=== PATIENT | male | born 1985 | race Caucasian/White ===

== ENCOUNTER 2021-04-05 08:17 | Outpatient (REF) | payer OTHER, SELFPAY ==
[2021-04-05 11:04] LABS: Cholesterol 160 mg/dL; HDL Cholesterol 32 mg/dL; LDL Cholesterol Calculated 93 mg/dl; Triglycerides 179 mg/dL
== END 2021-04-05 08:18 | disposition home or self-care (01) ==
LOC: HO.MANLDS 08:17
PROVIDERS: PCP Physician Assistant; Visit Provider Physician Assistant
DX: Z00.00 Encounter for general adult medical examination without abnormal findings (principal)
CPT/HCPCS: 36415; 80061

== ENCOUNTER 2023-11-23 14:44 | Outpatient (REF) | payer OTHER, SELFPAY ==
[2023-11-23 17:28] LABS: MANUAL DIFF FLAG NO
[2023-11-23 17:39] LABS: Basophils Percent Auto 0.3 % (0-2); Eosinophils Absolute Auto 0.1 X10*3/uL (0.0-0.4); Eosinophils Percent Auto 0.9 % (0-4); Hematocrit 37.9 % (42.0-52.0); Hemoglobin 11.4 g/dl (14.0-18.0); Imm Gran Abs Auto 0.07 X10*3/uL (0.00-0.03); Imm Gran Pct Auto 0.5 % (0.0-0.4); Lymphocytes Absolute Auto 2.5 X10*3/uL (1.2-4.9); Lymphocytes Percent Auto 18.4 % (20-40); Mean Corpuscular HGB Conc 30.1 g/dl (31.0-36.0); Mean Platelet Volume 10.9 fL (9.4-12.4); Monocytes Percent Auto 7.2 % (2-11); Neutrophils Absolute Auto 9.8 x10*3/uL (2.0-8.3); Neutrophils Percent Auto 72.7 % (45-73); Platelet Count 409 X10*3/uL (160-400); Red Blood Count 5.19 X10*6/uL (4.60-5.80); Red Cell Distribution Width 17.1 % (11.0-16.0); White Blood Count 13.4 X10*3/uL (4.8-10.8)
[2023-11-23 17:52] LABS: Alanine Aminotransferase 24 U/L (0-40); Albumin Level 4.4 g/dL (3.5-5.0); Alkaline Phosphatase 112 U/L (39-117); Anion Gap 12 (12-20); Aspartate Amino Transferase 22 U/L (5-37); Bilirubin Total 0.3 mg/dL (0.0-1.0); Blood Urea Nitrogen 12 mg/dL (9-16); Calcium 9.6 mg/dL (8.4-10.2); Carbon Dioxide 26 mmol/L (22-29); Chloride 107 mmol/L (96-108); Estimated Glomerular Filt Rate > 60; Glucose Random 88 mg/dL (60-115); Potassium 3.9 mmol/L (3.3-5.1); Sodium 141 mmol/L (135-145)
[2023-11-24 05:22] LABS: Estimated Average Glucose 123 mg/dL; Hemoglobin A1c % 5.9 % (<6.0)
== END 2023-11-23 14:45 | disposition home or self-care (01) ==
LOC: HO.MANLDS 14:44
PROVIDERS: Visit Provider Physician Assistant
DX: R73.01 Impaired fasting glucose (principal)
CPT/HCPCS: 36415; 80053; 83036; 85025

== ENCOUNTER 2024-04-11 15:03 | Outpatient (REF) | payer OTHER, SELFPAY ==
[2024-04-11 17:35] LABS: Appearance Urine Clear; Color Urine Dark Yellow; Glucose Urine UA Negative (Negative); Leukocyte Esterase Urine Trace (Negative); Nitrite Urine Negative (Negative); PH 5.5 (5.0-9.0); Specific Gravity - Urine >= 1.030 (1.005-1.025); UMIC TRIGGER UACC YES; Urine Blood Moderate (2+) (Negative); Urine Ketones Trace mg/dL (Negative); Urine Protein 30 (1+) mg/dL (Neg-Trace)
[2024-04-11 18:34] LABS: Bacteria Urine None Seen (None Seen); Hyaline Casts Urine 0-2 /LPF (0-2); RBC Urine >20 /HPF (0-2); Squamous Epithelial Cell Urine 0-2 /HPF (0-2); WBC Urine 0-5 /HPF (0-5)
== END 2024-04-11 15:04 | disposition home or self-care (01) ==
LOC: HO.LAB 15:03
PROVIDERS: PCP Physician Assistant; Visit Provider Physician Assistant
DX: Z87.442 Personal history of urinary calculi (principal)
CPT/HCPCS: 81001

== ENCOUNTER 2024-04-26 09:48 | Outpatient (REF) | payer OTHER, SELFPAY ==
--- NOTE | ~2024-04-26 | XR_ITS ---
EXAMINATION: XR ABDOMEN KUB CLINICAL INDICATION: Renal stone follow-up COMPARISON: None available. TECHNIQUE: AP view of the abdomen. FINDINGS: Moderate amount of stool and gas overlies the kidneys and obscures detail. There may be 2 1-2 mm calcifications overlying the medial left kidney. Bowel gas pattern otherwise normal. Bony structures intact. XR/XR KUB IMPRESSION: Limited exam. Query tiny left nephroliths. Electronically signed by: Riki Graham MD 04/26/2024 12:05 PM EDT
== END 2024-04-26 09:49 | disposition home or self-care (01) ==
LOC: HO.XRAY 09:48
PROVIDERS: PCP Physician Assistant; Visit Provider Nurse Practitioner Family
DX: N13.30 Unspecified hydronephrosis (principal); N20.0 Calculus of kidney
CPT/HCPCS: 74018; 81003; 99202

== ENCOUNTER 2024-04-26 09:48 | Outpatient (AMB) | payer OTHER, SELFPAY ==
--- NOTE | 2024-04-26 10:00 | A.OFFVIS_ITS ---
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 Clarke. He has a past medical history of ulcerative colitis, depression, sleep apnea, Crohn's disease, hemorrhoids, migraines, anemia, acid reflux, and anxiety. He presents to the office today as a new patient for nephrolithiasis. In discussion with the patient today he reports having followed up with his PCP for ongoing right- sided flank pain that radiates to his abdomen at which time a CT of the abdomen was ordered and performed. These results reviewed with the patient today. Obstructing 6 mm proximal right ureteral calculus with moderate right hydronephrosis. Nonobstructing 4 mm left renal calculus. When asked he denies any previous history of nephrolithiasis and or surgical intervention for nephrolithiasis. In discussion with the patient today he continues to report right-sided flank pain and feels issues with urinary stream. He reports compliance with Flomax as prescribed and increase in hydration. In office urinalysis results reviewed with the patient today. Discussed obtaining stat KUB for further assessment evaluation. Discussed possible ureteroscopy verses ESWL however will await results of KUB for further assessment. Risks and benef its of these interventions were discussed. All questions were answered. He otherwise denies hematuria, dysuria, foul smelling urine, fever, and or chills. Stat KUB results reviewed 04/26 moderate amount of stool and gas overlying the kidneys and obscures detail. There may be to 1-2 mm calcifications overlying the medial left kidney. Call to patient to make him aware of results and discuss further plan of care. Will attempt to obtain CT KUB for further assessment evaluation given patient continues with right-sided flank pain and is unsure if he passed his kidney stone. [facility] Medical History (Updated 04/26/24 @ 10:25 by RAEANN Barillas) Kidney stone Depressive disorder Impaired fasting blood sugar Colitis Melanocytic nevus Muscle pain Sleep apnea Crohn's disease Adult attention deficit hyperactivity disorder Lyme disease Hemorrhoids Migraine Anemia Varicella Anxiety Acid reflux History of depression Ulcerative colitis Review of Systems Const All systems reviewed & are unremarkable except as noted in HPI and below Physical Exam Const General: cooperative, healthy appearing, comfortable, no acute distress, well developed, alert and awake Orientation/consciousness: patient oriented x3 Limitations: no limitations HEENT Head: Yes normal to inspection, Yes normocephalic and Yes atraumatic Ears: hearing grossly normal bilaterally Eyes General: appearance normal, both eyes and all related structures Neck Neck: Yes normal visual inspection and Yes trachea midline Chest Chest palpation & inspection: normal inspection of the chest Resp Effort & Inspection: normal respiratory effort and able to speak in complete sentences Cardio Rate: regular rate GI Inspection: Yes normal to inspection General: Yes no CVA tenderness Back/Spine/Pelvis Back: no CVA tenderness Skin General skin exam: no rashes or lesions noted Neuro General: patient oriented x3 Extrem General: Yes normal to inspection Psych Appearance: grossly normal and well kempt Mental Status: mental status grossly normal Speech and movement: Normal speech and movement present and Clear speech present Affect: normal affect Attitude: cooperative Thought process: Normal thought process present Thought content: Normal thought content present Insight: Fair insight present (Psych) Judgement: Fair judgement present (Psych) Results AMB Urinalysis, Automated UA Leukoctes 15 Araseli/uL Last Edit by Liam Matthews on 04/26/24 10:10 UA Nitrite Last Edit by Liam Matthews on 04/26/24 10:10 UA Urobilinogen 0.2 mg/dL Last Edit by Liam Matthews on 04/26/24 10:10 UA Protein 15 mg/dL Last Edit by Liam Matthews on 04/26/24 10:10 UA pH 8.0 Last Edit by Liam Snowchandrika on 04/26/24 10:10 UA Blood 0 Wilian/uL Last Edit by Liam Gwendolynchandrika on 04/26/24 10:10 UA Specific Aurora 1.010 Last Edit by Liam Gwendolynchandrika on 04/26/24 10:10 UA Ketone Negative Last Edit by Liam Gwendolynchandrika on 04/26/24 10:10 UA Bilirubin 0 mg/dL Last Edit by Elmersera Gwendolynchandrika on 04/26/24 10:10 UA Glucose 0 mg/dL Last Edit by Liam Gwendolynchandrika on 04/26/24 10:10 Results Reviewed Results Reviewed: Laboratory Last Values Urine pH (Auto) 8.0 04/26/24 10:09 Specific Aurora (Auto) 1.010 04/26/24 10:09 Urine Protein (Auto) 15 mg/dL 04/26/24 10:09 Glucose (UA)(Auto) 0 mg/dL 04/26/24 10:09 Urine Ketones (Auto) Negative 04/26/24 10:09 Urine Blood (Auto) 0 Wilian/uL 04/26/24 10:09 Urine Bilirubin (Auto) 0 mg/dL 04/26/24 10:09 Urine Urobilinogen (Auto) 0.2 mg/dL 04/26/24 10:09 Leukocyte Esterase (Auto) 15 Araseli/uL 04/26/24 10:09 Date of Service: 04/26/24 EXAMINATION: XR ABDOMEN KUB FINDINGS: Moderate amount of stool and gas overlies the kidneys and obscures detail. There may be 2 1-2 mm calcifications overlying the medial left kidney. Bowel gas pattern otherwise normal. Bony structures intact. IMPRESSION: Limited exam. Query tiny left nephroliths. Assessment & Plan Assessment & Plan (1) Hydronephrosis: Code(s): N13.30 - Unspecified hydronephrosis Category: Medical (2) Kidney stone: Code(s): N20.0 - Calculus of kidney Category: Medical Plan In office urinalysis results reviewed with the patient today; as noted above. Recent CT results reviewed with the patient today; as noted above. Discussed right-sided ureteroscopy verses right-sided ESWL; risks and benefits were discussed. All questions were answered. Discussed, educated, stressed the importance of adequate hydration in relation to nephrolithiasis as well as over all health and well being. Continue Flomax. Prescription provided for p.r.n. pain medication. Recent KUB results reviewed with the patient today; as noted above. Discussed obtaining CT KUB for further assessment evaluation. Follow-up in 2-4 days with imaging to be completed prior; or sooner with any issues, concerns, and or questions. Orders: Orders XR KUB Today N20.0 - Calculus of kidney AMB Urinalysis Automated Today Z13.9 - Encounter for screening, unspecified Medications: New tramadol 50 mg PO Q8H PRN 15 tabs 0RF pain Patient Instructions: The patient had an opportunity to ask questions regarding the treatment plan. All questions were answered. Physical exam, labs, and imaging were discussed and reviewed in detail. As well as risks, benefits, and discussion of treatment choices. No major barriers to understanding were identified. The patient expressed understanding and agreement with the above treatment plan. The patient was made aware they should contact our office by phone for worsening of their current condition, the appearance of new symptoms, or with any questions or concerns. Compliance is encouraged with any medications and follow up testing that is ordered. It is a privilege to be allowed the opportunity to participate in? your urological care.? Again, if you have any questions or concerns If you have any questions or concerns please do not hesitate to contact me. The office is [phone]. This note is constructed using voice recognition software. While every effort has been made to ensure accuracy outside collector errors may have been included. Yours sincerely, RAEANN Barillas Coding Level of Care Code New Pt Level 4 (70708) Diagnoses Hydronephrosis N13.30 Kidney stone N20.0
== END 2024-04-26 10:22 | disposition home or self-care (01) ==
PROVIDERS: PCP Physician Assistant; Visit Provider Nurse Practitioner Family
DX: N13.30 Unspecified hydronephrosis (principal); N20.0 Calculus of kidney; Z13.9 Encounter for screening, unspecified
CPT/HCPCS: 99204

== ENCOUNTER 2024-06-06 14:49 | Outpatient (REF) | payer OTHER, SELFPAY | END 2024-06-06 14:50 | disposition home or self-care (01) | LOC: HO.MANLDS 14:49 | PROVIDERS: Visit Provider Physician Assistant | DX: Z87.442 Personal history of urinary calculi (principal) | CPT/HCPCS: 87086 ==

== ENCOUNTER 2024-06-28 13:29 | Outpatient (REF) | payer OTHER, SELFPAY ==
[2024-06-30 03:54] LABS: Hepatitis B Surface Ab Qnt 19 mIU/mL (> OR = 10)
[2024-06-30 06:28] LABS: Mumps Virus IgG Antibody <9.00 AU/mL; Rubella IgG Antibody <0.90 Index; Varicella IgG Antibody 7.67 S/CO
[2024-07-01 03:59] LABS: TS Negative Control Passed; TS Panel A 0; TS Panel B 0; TS Positive Control Passed; TSpotTB Negative (Negative)
== END 2024-06-28 13:30 | disposition home or self-care (01) ==
LOC: HO.MANLNP 13:29
PROVIDERS: Internal Medicine; Visit Provider Physician Assistant
DX: Z23 Encounter for immunization (principal)
CPT/HCPCS: 36415; 86317; 86481; 86735; 86762; 86765; 86787

== ENCOUNTER 2024-07-06 13:01 | Outpatient (REF) | payer OTHER, SELFPAY ==
--- NOTE | ~2024-07-06 | CT_ITS ---
EXAMINATION: CT ABDOMEN AND PELVIS WITHOUT CONTRAST CLINICAL INFORMATION: Unspecified hydronephrosis COMPARISON: Abdominal radiograph 04/26/2024 TECHNIQUE: Multidetector volumetric imaging was performed from the superior aspect of the liver through the pubic symphysis. Sagittal and coronal reformatted images were obtained on the technologist's workstation. This CT examination was performed using dose optimization techniques as appropriate, variously including the following: *Automated exposure control *Adjustment of mA and/or kV according to patient size (this includes techniques or standardized protocols for targeted exams where dose is matched to indication/reason for exam; i.e. extremities or head) *Use of iterative reconstruction technique DLP: 579 mGy-cm FINDINGS: LUNG BASES: The visualized lung bases are unremarkable. LIVER, GALLBLADDER, AND BILIARY TREE: The liver is normal in size, shape, and attenuation. No focal hepatic lesion or biliary ductal dilatation is present. The gallbladder is unremarkable with no evidence of radiopaque gallstones, gallbladder wall thickening, or obvious pericholecystic inflammatory changes. PANCREAS: Unremarkable. SPLEEN: Unremarkable. ADRENAL GLANDS: Unremarkable. KIDNEYS AND URETERS: There is a 0.9 cm calculus in the proximal right ureter measuring up to 1300 Hounsfield units at the level of L4. There is associated proximal hydroureter and mild hydronephrosis. No additional right-sided nephrolithiasis. Nonobstructing left renal interpole to 0.3 cm calculus measuring up to 750 Hounsfield units. No left-sided hydronephrosis. The kidneys are normal in size, shape, and attenuation. No perinephric stranding. BLADDER: The bladder is distended without focal wall thickening. No bladder calculi. GASTROINTESTINAL TRACT: The stomach is distended with ingested material. The small and large bowel are nondilated. Normal appendix. ABDOMINAL WALL: No significant hernia is appreciated. LYMPH NODES: Normal. VASCULAR: Unremarkable. PELVIC VISCERA: Normal CT appearance the prostate and seminal vesicles. OSSEOUS STRUCTURES: Unremarkable. CT/CT kidney stone IMPRESSION: 1. There is a 0.9 cm calculus in the proximal right ureter with associated proximal hydroureter and mild hydronephrosis. 2. Nonobstructing left renal 0.3 cm calculus. Fleischner guidelines were followed. Electronically signed by: Christine Echavarria DO 07/07/2024 05:42 PM EST RP
== END 2024-07-06 13:02 | disposition home or self-care (01) ==
LOC: HO.CT 13:01
PROVIDERS: PCP Physician Assistant; Visit Provider Nurse Practitioner Family
DX: N13.30 Unspecified hydronephrosis (principal); N20.0 Calculus of kidney
CPT/HCPCS: 74176

== ENCOUNTER 2024-07-12 15:11 | Outpatient (AMB) | payer OTHER, SELFPAY ==
--- NOTE | 2024-07-12 15:11 | A.OFFVIS_ITS ---
Intake Visit Reasons: H&P Intake Note: New patient is present to establish care for history of kidney stone Any Urology Medications: None Antibiotic Allergy: Sulfa Blood Thinner: None Family History: Bladder Cancer? No Prostate Cancer? No Patient Symptoms: Patient states he is experiencing right lower back pain, discomfort, and difficult to urinate. He denies any blood in the urine. 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 Clarke. He has a past medical history of ulcerative colitis, depression, sleep apnea, Crohn's disease, hemorrhoids, migraines, anemia, acid reflux, and anxiety. He is being followed up on today via video telehealth for nephrolithiasis. Of note, patient was seen approximately 3 months ago at which time a CT KUB was ordered for further assessment evaluation. These results reviewed with the patient today. There is a 0.9 cm stone in the proximal right ureter. There is associated proximal hydroureter and mild hydronephrosis. No additional right-sided nephrolithiasis noted. Nonobstructing left renal inter pole 0.3 cm calculus.. No left-sided hydronephrosis. The bladder is distended without focal wall thickening. No bladder calculi noted. He continues to report ongoing right- sided flank pain worse at the end of his workday as well as in the morning. He otherwise denies any bothersome urinary issues. We discussed further treatment options to include ureteroscopy verses ESWL. Risks and benefits of these interventions were discussed. All questions were answered. He otherwise denies hematuria, dysuria, foul smelling urine, fever, and or chills. [facility] Medical History Kidney stone Depressive disorder Impaired fasting blood sugar Colitis Melanocytic nevus Muscle pain Sleep apnea Crohn's disease Adult attention deficit hyperactivity disorder Lyme disease Hemorrhoids Migraine Anemia Varicella Anxiety Acid reflux History of depression Ulcerative colitis Review of Systems Const All systems reviewed & are unremarkable except as noted in HPI and below Physical Exam Const General: cooperative, healthy appearing, comfortable, no acute distress, well developed, alert and awake Orientation/consciousness: patient oriented x3 Resp Effort & Inspection: normal respiratory effort and able to speak in complete sentences Neuro General: patient oriented x3 Psych Appearance: grossly normal and well kempt Mental Status: mental status grossly normal Speech and movement: Normal speech and movement present and Clear speech present Affect: normal affect Attitude: cooperative Thought process: Normal thought process present Thought content: Normal thought content present Insight: Fair insight present (Psych) Judgement: Fair judgement present (Psych) Telehealth Telehealth Telehealth Platform: Telephone Location of provider rendering services: practice address Location of patient: address on file Patient Identification confirmed using: Name, : Yes Telehealth method: video Patient verbally consented to treatment: Yes Patient verbally consented to billing insurance company: Yes Patient informed of any privacy concerns related to visit: Yes Minutes spent on Phone/Video with Pt.: 25 Results Reviewed Results Reviewed: Date of Service: 07/06/24 EXAMINATION: CT ABDOMEN AND PELVIS WITHOUT CONTRAST FINDINGS: LUNG BASES: The visualized lung bases are unremarkable. LIVER, GALLBLADDER, AND BILIARY TREE: The liver is normal in size, shape, and attenuation. No focal hepatic lesion or biliary ductal dilatation is present. The gallbladder is unremarkable with no evidence of radiopaque gallstones, gallbladder wall thickening, or obvious pericholecystic inflammatory changes. PANCREAS: Unremarkable. SPLEEN: Unremarkable. ADRENAL GLANDS: Unremarkable. GASTROINTESTINAL TRACT: The stomach is distended with ingested material. The small and large bowel are nondilated. Normal appendix. ABDOMINAL WALL: No significant hernia is appreciated. LYMPH NODES: Normal. VASCULAR: Unremarkable. PELVIC VISCERA: Normal CT appearance the prostate and seminal vesicles. OSSEOUS STRUCTURES: Unremarkable. IMPRESSION: 1. There is a 0.9 cm calculus in the proximal right ureter with associated proximal hydroureter and mild hydronephrosis. 2. Nonobstructing left renal 0.3 cm calculus. Assessment & Plan Assessment & Plan (1) Hydronephrosis: Code(s): N13.30 - Unspecified hydronephrosis Category: Medical (2) Kidney stone: Code(s): N20.0 - Calculus of kidney Category: Medical (3) Flank pain: Code(s): R10.9 - Unspecified abdominal pain Category: Medical Plan Recent CT KUB results reviewed with the patient today; as noted above. We discussed further surgical intervention to include ESWL versus ureteroscopy; risks and benefits of these interventions were discussed. All questions were answered. Prescription provided for p.r.n. pain medication. Will schedule for right sided ESWL as discussed. Follow-up per doctor's orders; or sooner with any issues, concerns, and or questions. Medications: New oxycodone 5 mg PO QID 7 days PRN 28 tabs 0RF pain Patient Instructions: The patient had an opportunity to ask questions regarding the treatment plan. All questions were answered. Physical exam, labs, and imaging were discussed and reviewed in detail. As well as risks, benefits, and discussion of treatment choices. No major barriers to understanding were identified. The patient expr essed understanding and agreement with the above treatment plan. The patient was made aware they should contact our office by phone for worsening of their current condition, the appearance of new symptoms, or with any questions or concerns. Compliance is encouraged with any medications and follow up testing that is ordered. It is a privilege to be allowed the opportunity to participate in? your urological care.? Again, if you have any questions or concerns If you have any questions or concerns please do not hesitate to contact me. The office is [phone]. This note is constructed using voice recognition software. While every effort has been made to ensure accuracy financial data analyst errors may have been included. Yours sincerely, RAEANN Barillas Coding Level of Care Code Tele Est Pt Level 4 (67008) Diagnoses Hydronephrosis N13.30 Kidney stone N20.0 Flank pain R10.9 Time Spent (min) 25
== END 2024-07-12 16:13 | disposition home or self-care (01) ==
LOC: HO.HUSH 15:11
PROVIDERS: PCP Physician Assistant; Visit Provider Nurse Practitioner Family
DX: N13.30 Unspecified hydronephrosis (principal); N20.0 Calculus of kidney; R10.9 Unspecified abdominal pain
CPT/HCPCS: 99214

== ENCOUNTER 2024-07-20 10:58 | Day surgery (SDC) | payer OTHER, SELFPAY ==
--- NOTE | 2024-07-18 13:43 | HO.ANESPROP2 ---
Documented by User: Steff Sorenson NP 07/18/24 13:43 HPI - Anesthesia Eval Consult details Narrative: 38yo M for Right ESWL PMFSH Active Problems Active Problems: All Active Problems Flank pain (Acute) Hydronephrosis (Acute) Kidney stone (Acute) Past Medical History Medical History Kidney stone Depressive disorder Impaired fasting blood sugar Colitis Melanocytic nevus Muscle pain Sleep apnea Crohn's disease Adult attention deficit hyperactivity disorder Lyme disease Hemorrhoids Migraine Anemia Varicella Anxiety Acid reflux History of depression Ulcerative colitis Social History Social History Advance Directives: No Advance Directives Information Provided: Yes Meds Allergies Allergy/AdvReac Type Severity Reaction Status Date / Time Sulfa (Sulfonamide Allergy Unknown Verified 07/20/24 11:36 Antibiotics) Home Medications ?Medication ?Instructions ?Recorded ?Confirmed ?Last Taken ?Type dextroamphetamine-amphetamine 5 mg 1 tab PO BID 04/25/24 04/26/24 Unknown History tablet lorazepam 1 mg tablet 1 mg PO BID 04/25/24 04/26/24 Unknown History sertraline 50 mg tablet 50 mg PO DAILY 04/25/24 04/26/24 Unknown History ustekinumab 90 mg/mL subcutaneous mg subcut 07/12/24 Unknown History syringe (Stelara) Assessment and Plan Assessment Anesthesia Assessment: Chart Reviewed Documented by User: Ivy Marsh MD 07/20/24 11:58 PMFSH Past Medical History Medical History Kidney stone Depressive disorder Impaired fasting blood sugar Colitis Melanocytic nevus Muscle pain Sleep apnea Crohn's disease Adult attention deficit hyperactivity disorder Lyme disease Hemorrhoids Migraine Anemia Varicella Anxiety Acid reflux History of depression Ulcerative colitis Surgical History History of Problems with Anesthesia: No Social History Social History Advance Directives: No Advance Directives Information Provided: Yes Meds Allergies Allergy/AdvReac Type Severity Reaction Status Date / Time Sulfa (Sulfonamide Allergy Unknown Verified 07/20/24 11:36 Antibiotics) Home Medications ?Medication ?Instructions ?Recorded ?Confirmed ?Last Taken ?Type dextroamphetamine-amphetamine 5 mg 1 tab PO BID 04/25/24 04/26/24 Unknown History tablet lorazepam 1 mg tablet 1 mg PO BID 04/25/24 04/26/24 Unknown History sertraline 50 mg tablet 50 mg PO DAILY 04/25/24 04/26/24 Unknown History ustekinumab 90 mg/mL subcutaneous mg subcut 07/12/24 Unknown History syringe (Stelara) Exam Airway Mallampati Class: III TM Dist: >3cm Neck ROM: Full Loose/Missing/Broken Teeth: No Heart: RRR Lungs: CTA Assessment and Plan Assessment Anesthesia Assessment: Anesthesia Plan Discussed Final Anesthetic Review History of Problems with Anesthesia: No NPO: Yes ASA Class: II Final Preanesthetic Review: Meds/Allgs Chart Reviewed, Consent Obtained/Reviewed and Anes Risks/Benef Reviewed Patient Risk: Low Procedure Risk: Low Anesthetic Plan Anesthetic Plan: MAC: Disposition: Standard PACU
--- NOTE | ~2024-07-20 | XR_ITS ---
EXAMINATION: XR ABDOMEN KUB CLINICAL INDICATION: Right renal stone. COMPARISON: CT kidney stone 07/06/2024, x-ray abdomen 04/26/2024. TECHNIQUE: 2 AP views of the abdomen. FINDINGS: Nonobstructive bowel gas pattern. Moderate amount of stool in the colon. Visualization of the bilateral kidneys is limited due to overlying bowel. Probable small left renal interpolar calculus redemonstrated, although visualization limited due to overlying bowel. No definitive right renal calculi identified, although visualization limited due to overlying bowel. Degenerative changes in the lumbar spine. Tiny faint pelvic calcifications, possibly phleboliths. XR/XR KUB IMPRESSION: Probable small left renal interpolar calculus redemonstrated, although visualization limited due to overlying bowel. No definitive right renal calculi identified, although visualization limited due to overlying bowel. This study was presented today July 20, 2024 for interpretation. Stat results provided at this time as requested by referring provider. Electronically signed by: Ramya Simons MD 07/20/2024 01:05 PM [facility]
--- NOTE | 2024-07-20 11:46 | MHC.SHP ---
Pre-Procedural Eval Section A - 24 Hr Update-Section A only Date of Service: 07/20/24 The patient is an INPATIENT: No Changes since office visit: No Cold of Flu in the past 2 weeks, No New Medical Problems, No Changes in Medication and No Patient answered all questions The patient has been examined within 24 hours of the surgical procedure. The History & Physical has been completed within 30 days and I have reviewed it.: Yes Section B - Complete if H&P > 30 days Chief Complaint: Hydronephrosis with ureteropelvic junction obstruc Allergies: Allergies Allergy/AdvReac Type Severity Reaction Status Date / Time Sulfa (Sulfonamide Allergy Unknown Verified 07/20/24 11:36 Antibiotics) Plan Diagnosis/Plan: Unchanged (Right proximal ureteric stone) I have reviewed the history and physical and performed a pertinent physical examination on my patient. No changes have occurred unless specified. Time Spent With Patient Time: Total time managing care of this patient today ____ minutes.
[2024-07-20 11:56] VITALS: BMI 34.3
[2024-07-20 11:58] VITALS: BP 132/88; PULSE 71; RESP 16; TEMP 36.9; O2SAT 99
[2024-07-20] MEDS: Lactated Ringers 1,000 ML 999 ML IV (12:07)
--- NOTE | 2024-07-20 12:44 | W.PM.OPN ---
Operative Note Operative Note Date of Service: 07/20/24 Narrative: PreOperative Diagnosis: right Ureteric stones Post Operative Diagnosis: right Ureteric stones Procedure: right Ureteric ESWL Surgeon: Dr Cameron Polanco Anesthesia: mac/sedation Indications for procedure: The patient understands ESWL may be a staged procedure and subsequent intervention may be required based on imaging after ESWL. Quoted stone clearance rates for a solitary procedure are in the 70-80% range based primarily on stone location. They also understand there is a risk of bleeding to the ureter, infection, damage to adjacent organs, and stone migration following the procedure. - Imaging 9mm right proximal Procedure: After informed consent was verified the patient was brought to the operating room and placed in a supine position. Anesthesia was performed per protocol. Safety pause time-out was performed. Imaging was displayed in the room and laterality confirmed. Stone location confirmed with in room imaging through use of ultrasound and fluroscopy as required. Procedure optimization performed with 1 Liter of hydration using LR prior to initiation. ESWL was performed. The 1st 500 shocks were performed at 60 hertz. These were performed with increasing power. Once maximum power was reached the rate was increased to 120 hertz. A total of 3000 shocks were given. Targeted imaging with ultrasound/fluoroscopy showed stone smudging suggestive of disintegration. The patient tolerated the procedure well and was transferred to the recovery area upon completion. Post procedure imaging will be organized. There was no evidence for flank discoloration.
[2024-07-20 12:47] VITALS: BP 125/83; PULSE 64; RESP 18; TEMP 36.5; O2SAT 97
[2024-07-20 12:55] VITALS: BP 128/75; PULSE 62; RESP 18; O2SAT 97
[2024-07-20 13:10] VITALS: BP 121/75; PULSE 65; RESP 18; O2SAT 99
[2024-07-20 13:25] VITALS: BP 138/48; PULSE 64; RESP 18; O2SAT 98
[2024-07-20 13:40] VITALS: BP 147/60; PULSE 61; RESP 18; O2SAT 98
== END 2024-07-20 13:59 | disposition home or self-care (01) ==
PROVIDERS: PCP Physician Assistant; Visit Provider Urology
PROC: (CPT 50590; principal; 2024-07-20 11:30)
DX: N20.1 Calculus of ureter (principal); N13.0 Hydronephrosis with ureteropelvic junction obstruction; M54.50 Low back pain, unspecified; R39.198 Other difficulties with micturition; K50.90 Crohn's disease, unspecified, without complications; K64.8 Other hemorrhoids; F32.A Depression, unspecified; F41.9 Anxiety disorder, unspecified; F90.8 Attention-deficit hyperactivity disorder, other type; G47.30 Sleep apnea, unspecified; D64.9 Anemia, unspecified; K21.9 Gastro-esophageal reflux disease without esophagitis; R73.01 Impaired fasting glucose; Z79.620 Long term (current) use of immunosuppressive biologic; Z79.899 Other long term (current) drug therapy; Z88.2 Allergy status to sulfonamides
CPT/HCPCS: 50590; 74018; J0131; J1940; J2003; J2250; J2704; J3010

== ENCOUNTER → 2024-07-20 10:58 | Outpatient (BNV) | payer OTHER, SELFPAY | PROVIDERS: PCP Physician Assistant; Visit Provider Urology | DX: N20.1 Calculus of ureter (principal) | CPT/HCPCS: 50590 ==

== ENCOUNTER 2024-08-22 09:20 | Outpatient (REF) | payer OTHER, SELFPAY ==
--- NOTE | ~2024-08-22 | US_ITS ---
EXAMINATION: US RETROPERITONEAL LIMITED (RENAL ONLY) CLINICAL INFORMATION: Calculus of kidneys.. COMPARISON: CT kidneys 07/06/2024 TECHNIQUE: Routine retroperitoneal ultrasound imaging with attention kidneys was performed. FINDINGS: RIGHT KIDNEY: 12.7 x 4.5 x 6.1 cm (SAG x AP x TRV). The kidney is normal in size, contour, and echogenicity. Renal cortical thickness is normal. No calculi or focal parenchymal lesions. There is mild pelvic fullness.. LEFT KIDNEY: 12.2 x 6.5 x 4.9 cm (SAG x AP x TRV). The kidney is normal in size, contour, and echogenicity. Renal cortical thickness is normal. No calculi or focal parenchymal lesions. No hydronephrosis. US/US renal BI IMPRESSION: No echogenic renal calculi seen. Mild right renal pelvic fullness.. Electronically signed by: Colby Bruno MD 08/22/2024 10:21 AM [facility] [place]
== END 2024-08-22 09:21 | disposition home or self-care (01) ==
LOC: HO.US 09:20
PROVIDERS: PCP Physician Assistant; Visit Provider Urology
DX: N20.0 Calculus of kidney (principal); N13.30 Unspecified hydronephrosis; R10.9 Unspecified abdominal pain
CPT/HCPCS: 76775

== ENCOUNTER → 2024-08-22 09:27 | Outpatient (BNV) | payer OTHER, SELFPAY | PROVIDERS: PCP Physician Assistant; Visit Provider Radiology Diagnostic Radiology | DX: N20.0 Calculus of kidney (principal) | CPT/HCPCS: 76775 ==

== ENCOUNTER 2024-08-31 14:59 | Outpatient (AMB) | payer OTHER, SELFPAY ==
--- NOTE | 2024-08-31 15:26 | A.OFFVIS_ITS ---
Intake Visit Reasons: ESWL- follow up/US(set) Intake Note: Patient Is present for Ultrasound follow up Urology Med: Tamsulosin Antibiotic Allergy: Sulfa Blood Thinner: None Medical Assistant Internal Medicine Required: No Accompanied by: Self / Same As Patient Allergies Sulfa (Sulfonamide Antibiotics) Allergy (Verified 08/31/24 16:03) Unknown Medication List - Last Reconciled 08/31/24 by RAEANN Barillas dextroamphetamine-amphetamine 5 mg 1 tab PO BID lorazepam 1 mg PO BID naproxen 500 mg PO BID PRN 7 days oxycodone 5 mg PO Q8H PRN 3 days oxycodone 5 mg PO QID PRN 7 days phenazopyridine (Pyridium) 100 mg PO TID PRN 4 days sertraline 50 mg PO DAILY tamsulosin 0.4 mg PO BEDTIME 14 days ustekinumab (Stelara) mg subcut HPI Comments Details: Slick is a very pleasant 38-year-old male patient of Dr. Clarke. He has a past medical history of ulcerative colitis, depression, sleep apnea, Crohn's disease, hemorrhoids, migraines, anemia, acid reflux, and anxiety. He presents to the office today for follow-up of his nephrolithiasis. Of note, patient underwent right-sided ESWL with Dr. Polanco 07/20/2024. Recent renal imaging results reviewed with the patient today 08/27 bilateral kidneys are normal in size, contour, and echogenicity. There are no calculi or lesions noted bilaterally. There is mild right renal pelvic fullness. In discussion with the patient today he reports initially after right-sided lithotripsy he had been doing well however over the last 7-10 days he has been experiencing right-sided flank pain as he had been prior to surgical procedure. In office urinalysis results reviewed with the patient today. We discussed obtaining repeat CT KUB for further assessment evaluation as patient continues to experience right-sided flank pain status post surgical procedure. He otherwise denies any bothersome urinary issues. He denies urinary urgency, urinary frequency, incontinence, nocturia, hematuria, dysuria, foul smelling urine, changes to urinary stream, fever, and or chills. He is happy with his current voiding parameters. [facility] Medical History Kidney stone Depressive disorder Impaired fasting blood sugar Colitis Melanocytic nevus Muscle pain Sleep apnea Crohn's disease Adult attention deficit hyperactivity disorder Lyme disease Hemorrhoids Migraine Anemia Varicella Anxiety Acid reflux History of depression Ulcerative colitis Social History Patient Tobacco Use Status: Current everyday Tobacco user Tobacco use type: Smokeless Tobacco Review of Systems Const All systems reviewed & are unremarkable except as noted in HPI and below Physical Exam Const General: cooperative, healthy appearing, comfortable, no acute distress, well developed, alert and awake Orientation/consciousness: patient oriented x3 Limitations: no limitations HEENT Head: Yes normal to inspection, Yes normocephalic and Yes atraumatic Ears: hearing grossly normal bilaterally Eyes General: appearance normal, both eyes and all related structures Neck Neck: Yes normal visual inspection and Yes trachea midline Chest Chest palpation & inspection: normal inspection of the chest Resp Effort & Inspection: normal respiratory effort and able to speak in complete sen tences Cardio Rate: regular rate GI Inspection: Yes normal to inspection General: Yes no CVA tenderness Back/Spine/Pelvis Back: no CVA tenderness Skin General skin exam: no rashes or lesions noted Neuro General: patient oriented x3 Extrem General: Yes normal to inspection Psych Appearance: grossly normal and well kempt Mental Status: mental status grossly normal Speech and movement: Normal speech and movement present and Clear speech present Affect: normal affect Attitude: cooperative Thought process: Normal thought process present Thought content: Normal thought content present Insight: Fair insight present (Psych) Judgement: Fair judgement present (Psych) Results AMB Urinalysis, Automated UA Leukoctes 0 Araseli/uL Last Edit by INDIA Booker on 08/31/24 15:47 UA Nitrite Negative Last Edit by INDIA Booker on 08/31/24 15:47 UA Urobilinogen 0.2 mg/dL Last Edit by INDIA Booker on 08/31/24 15:4 7 UA Protein 15 mg/dL Last Edit by INDIA Booker on 08/31/24 15:47 UA pH 6.5 Last Edit by INDIA Booker on 08/31/24 15:47 UA Blood 0 Wilian/uL Last Edit by INDIA Booker on 08/31/24 15:47 UA Specific Natalia 1.015 Last Edit by Abigail Russo, RMA on 08/31/24 15: 47 UA Ketone Negative Last Edit by Abigail Russo, RMA on 08/31/24 15:47 UA Bilirubin 0 mg/dL Last Edit by Abigail Russo, RMA on 08/31/24 15:47 UA Glucose 0 mg/dL Last Edit by Abigail Russo, A on 08/31/24 15:47 Results Reviewed Results Reviewed: Laboratory Last Values Urine pH (Auto) 6.5 08/31/24 15:46 Specific Natalia (Auto) 1.015 08/31/24 15:46 Urine Protein (Auto) 15 mg/dL 08/31/24 15:46 Glucose (UA)(Auto) 0 mg/dL 08/31/24 15:46 Urine Ketones (Auto) Negative 08/31/24 15:46 Urine Blood (Auto) 0 Wilian/uL 08/31/24 15:46 Urine Nitrite (Auto) Negative 08/31/24 15:46 Urine Bilirubin (Auto) 0 mg/dL 08/31/24 15:46 Urine Urobilinogen (Auto) 0.2 mg/dL 08/31/24 15:46 Leukocyte Esterase (Auto) 0 Araseli/uL 08/31/24 15:46 Ordering Physician: Cameron Polanco MD Date of Service: 08/22/24 Procedure(s): US renal BI Accession Number(s): [id number] cc: Cameron Polanco MD; Annette Clarke~ EXAMINATION: US RETROPERITONEAL LIMITED (RENAL ONLY) CLINICAL INFORMATION: Calculus of kidneys.. COMPARISON: CT kidneys 07/06/2024 TECHNIQUE: Routine retroperitoneal ultrasound imaging with attention kidneys was performed. FINDINGS: RIGHT KIDNEY: 12.7 x 4.5 x 6.1 cm (SAG x AP x TRV). The kidney is normal in size, contour, and echogenicity. Renal cortical thickness is normal. No calculi or focal parenchymal lesions. There is mild pelvic fullness.. LEFT KIDNEY: 12.2 x 6.5 x 4.9 cm (SAG x AP x TRV). The kidney is normal in size, contour, and echogenicity. Renal cortical thickness is normal. No calculi or focal parenchymal lesions. No hydronephrosis. IMPRESSION: No echogenic renal calculi seen. Mild right renal pelvic fullness.. Assessment & Plan Assessment & Plan (1) Flank pain: Code(s): R10.9 - Unspecified abdominal pain Category: Medical (2) Kidney stone: Code(s): N20.0 - Calculus of kidney Category: Medical Plan In office urinalysis results reviewed with the patient today; as noted above. Recent renal imaging results reviewed with the patient today; as noted above. We discussed obtaining repeat CT KUB for further assessment evaluation. We discussed importance of adequate hydration relation to nephrolithiasis as well as overall health and well-being. Continue Flomax. Patient with CT KUB appointment 09/09 Will follow-up once imaging is completed; or sooner with any issues, concerns, and or questions. Orders: Orders AMB Urinalysis Automated Today Z13.9 - Encounter for screening, unspecified Patient Instructions: The patient had an opportunity to ask questions regarding the treatment plan. All questions were answered. Physical exam, labs, and imaging were discussed and reviewed in detail. As well as risks, benefits, and discussion of treatment choices. No major barriers to understanding were identified. The patient expressed understanding and agreement with the above treatment plan. The patient was made aware they should contact our office by phone for worsening of their current condition, the appearance of new symptoms, or with any questions or concerns. Compliance is encouraged with any medications and follow up testing that is ordered. It is a privilege to be allowed the opportunity to participate in? your urological care.? Again, if you have any questions or concerns If you have any questions or concerns please do not hesitate to contact me. The office is [phone]. This note is constructed using voice recognition software. While every effort has been made to ensure accuracy computer game designer errors may have been included. Yours sincerely, RAEANN Barillas Coding Level of Care Code Est Pt Level 3 (18815) Diagnoses Flank pain R10.9 Kidney stone N20.0
--- OUTSIDE RECORDS SUMMARY | 2024-08-31 17:06 | XMS_ITS | Clinical Summary ---
Author Organization [facility] Address [address] [place] [address] Care Team Providers Care Director Of Retail Marketing Name Role Phone Roverto Chauhan MD Primary Care Provider [phone] Social History Tobacco Use Types Packs/Day Years Used Date Smoking Tobacco: Never Assessed Sex and Gender Information Value Date Recorded Sex Assigned at Not on file Legal Sex Male 11:18 PM EDT Gender Identity Not on file Sexual Orientation Not on file Plan of Treatment Health Maintenance Due Date Last Done Comments Hepatitis C Screening 1987 DTaP/Tdap/Td (1 - Tdap) 12/07/2005 Hep B (1 of 3 - 19+ 3-dose series) 12/07/2006 COVID-19 Vaccine (2023-2 5 season) 2024 Influenza (#1) 2024 Zoster (Shingrix) (1 of 2) 12/07/2037 HPV Vaccine Aged Out No longer eligi ble based on patient's age to complete this topic Hep A Aged Out No longer eligi ble based on patient's age to complete this topic Hib Aged Out No longer eligi ble based on patient's age to complete this topic Meningococcal ACWY Aged Out No longer eligible based on patient's age to complete this topic Pneumococcal Aged Out No longer eligi ble based on patient's age to complete this topic [facility] [place] [address] [employer] FEE FOR SERVICE PPO * Guarantor: [employer] Account Type Relation to Patient Date of Phone Billing Address [employer] [phone] [address] (Home) [phone] 24 (Work) [employer] ATTN: A/P [address] [address] [place] [address] Care Teams Director Of Retail Marketing Relationship Specialty Start Date End Date Roverto Chauhan MD [address] [place] [address] PCP - General 06/03/08
--- OUTSIDE RECORDS SUMMARY | 2024-08-31 17:06 | XMS_ITS | Data Portability ---
Author Organization [facility] Address [address] [place] [address] Assessment Encounter Date Assessment Date Assessment LastModified by Organization Details LastModified Time 04/08/2024 04/08/2024 Patient agreed and verbally consents to this audio and video Telehealth appt via a secure platform [email or web address] Not available 04/08/2024 10:23:33 04/29/2024 04/29/2024 Patient agreed and verbally consents to this audio and video Telehealth appt via a secure platform [email or web address] Not available 04/29/2024 11:23:49 Plan of Treatment Reminders Order Date Submit Date Provider Last Modified By Organization Details Last Modified Time Details Appointments ANNUAL EXAM 2024 03:30P M MARIAELENA HALL Not available Not available Not available Lab urinalysi s complete, reflex culture 2023 024 [facility], [address] [place] [address], [place], [address], 04/12/2024 11:18:54 Referral None recorded. Procedures None recorded. Surgeries None recorded. Imaging CT, abdomen + pelvis, w/o contrast - r/o kidney stone 2023 024 [email or web address] [address] [facility], [facility] [address], [place], [address], 04/11/2024 10:12:38 Medication Orders lorazepam 1 mg tablet 2023 024 [facility], [address] [place], [address], 04/05/2024 11:40:50 tamsulosi n 0.4 mg capsule 2023 024 [id number], [address] [facility], [place], [address], 04/08/2024 10:23:15 oxycodone 5 mg tablet 2023 024 [id number], [address] [facility], [place], [address], 04/08/2024 10:23:20 Patient TargetsNo targets recorded. Patient InstructionsNo instructions recorded. Reason for Referral None Reported. Results Created Date Observation Date Name Description Value Unit Range Abnormal Flag Note LastModifiedBy Organization Detail LastModifiedTime 04/11/20 24 04/11/2024 CT, abdom en + pelvi s, w/o contr ast No observ ation record ed. [facility] [address], [address], 04/11/2024 15:38:46 04/26/20 24 04/26/2024 XR, kidne y + urete r + bladd er No observ ation record ed. [facility] (Medical Records) [address] [place], [address], 04/26/2024 12:15:58 07/07/20 24 07/06/2024 CT, abdom en + pelvi s, w/o contr ast No observ ation record ed. [facility] (Medical Records) [address] [place], [address], 07/08/2024 09:07:14 08/22/19 25 08/22/2024 CT, abdom en + pelvi s, w/o contr ast No observ ation record ed. [email or web address] [facility] [address] [address], [place], [address], 08/22/2024 10:26:29 Result Notes None recorded. Problems Name Problem SNOMED Code Status Onset Date Resolution Date Notes Provider Name and Address Organization Details Recorded Time Ulcerative colitis 66093325 Active 2017 Not Available [facility] 3 09:54:27 History of depression 337872218 Active 2017 Not Available [facility] 3 09:54:27 Acid reflux 670414978 Active 2017 Not Available [facility] 3 09:54:27 Anxiety 91173103 Active 2017 Not Available [facility] 3 09:54:27 Varicella 35277935 Active 2017 Not Available [facility] 3 09:54:27 Anemia 876044763 Active 2017 2/2 UC Not Available [facility] 3 09:54:27 Migraine 07075007 Active 2017 Not Available [facility] 3 09:54:27 Hemorrhoid s 67495095 Active 2017 Not Available [facility] 3 09:54:27 Lyme disease 77614429 Active 2017 Not Available [facility] 3 09:54:27 Panic attack 743840597 Active 2021 Not Available [facility] 3 09:54:27 Adult attention deficit hyperactiv ity disorder 175468512 Active 2022 Not Available [facility] 3 09:54:27 Crohn's disease 90153852 Active 2022 Not Available [facility] 3 09:54:27 Sleep apnea 96328096 Active 2022 MARIAELENA HALL [address] [place] [address], [address], [facility] 3 13:51:36 Muscle pain 29085551 Active 2023 MARIAELENA HALL [address] [place], [address], [facility] 4 14:25:03 Melanocyti c nevus of skin 854698444 Active 2023 MARIAELENA HALL [address] [place] [address], [address], [facility] 4 14:29:10 Colitis 71829173 Active 2023 MARIAELENA HALL [address] [place] [address], [address], [facility] 4 14:31:39 External hemorrhoid s 63563983 Active 2023 MARIAELENA HALL [address] [place] [address], [address], [facility] 4 14:32:42 Impaired fasting glycemia 650421436 Active 2023 MARIAELENA HALL [address] [place] [address], [address], [facility] 4 14:35:57 Depressive disorder 54261206 Active 2023 MARIAELENA HALL [address] [place] [address], [address], [facility] 4 10:24:16 Kidney stone 18943707 Active 2023 MARIAELENA HALL [address] [place] [address], [phone], [facility] 4 15:39:37 Problem Notes None recorded. Procedures Surgical History Date Name Laterality Status Provider Name and Address Organization Details Recorded Time 9 Colonoscopy completed [facility] 09/10/2018 08:45:52 5 Colonoscopy completed [facility] 03/16/2018 16:35:24 Imaging Results Imaging Date Name Status LastModified by Organiz ation Details LastModified Time 04/11/2024 CT, abdomen + pelvis, w/o contrast completed [facility] [address] [address], [place], [address], 04/11/2024 15:38:46 04/26/2024 XR, kidney + ureter + bladder completed [facility] (Medical Records) [address] [place], [address], 04/26/2024 12:15:58 07/06/2024 CT, abdomen + pelvis, w/o contrast completed [facility] (Medical Records) [address] [place], [address], 07/08/2024 09:07:14 08/22/2024 CT, abdomen + pelvis, w/o contrast completed [facility] [address] [facility] [address], [place], [address], 08/22/2024 10:26:29 Procedure Notes None recorded. Medical Equipment None Reported. Allergies Allergen ID Allergen Name Allergen Category Reaction Reaction Severity Criticality Documentation Date Start Date Code Code System Note Provider Name and Address Organization Details Recorded Time 2152 Substance with sulfonami de structure and antibacte rial mechanism of action (substanc e) medicatio n rash Not available Not available 03/17/2018 54249 8003 SNOMED Betzy bo, [facility] 8 11:01:18 6307 Wellbutri n medicatio n other Not available Not available 08/19/2022 38996 RxNorm shake s, chill s, body aches MARIAELENA HALL [address] [place] [address], [phone], [facility] 3 09:17:51 Medications Name Sig Start Date Stop Date Status Note LastModified by Organization Details LastModified Time cyclobenzap rine 10 mg tablet Take 1 tablet 3 times a day by oral route for 15 days. 06/11 completed Not Available Not Available Not Available prednisone 10 mg tablet Taper instructi ons 11/22 completed Not Available Not Available Not Available cefuroxime axetil 250 mg tablet Take 1 tablet every 12 hours by oral route. 03/29 completed Not Available Not Available Not Available azithromyci n 250 mg tablet TAKE 2 TABLETS (500 MG) BY ORAL ROUTE ONCE DAILY FOR 1 DAY THEN 1 TABLET (250 MG) BY ORAL ROUTE ONCE DAILY FOR 4 DAYS 04/12 completed Not Available Not Available Not Available prednisone 20 mg tablet TAKE 2 TABLET BY MOUTH DAILY FOR 10 DAYS. START ON 05/09/22 AND CONTINUE UNTIL SEEN BY ZAIRA VIDALES ON 05/18) 08/19 completed Not Available Not Available Not Available prednisone 5 mg tablet TAKE 8 TABLETS ONCE DAILY FOR 14 DAYS THEN DECREASE BY 1 TAB EVERY 7 DAYS, THEN STOP 29 03/08 completed Not Available Not Available Not Available diphenoxyla te-atropine 2.5 mg-0.025 mg tablet TAKE 1 TABLET BY MOUTH FOUR TIMES A DAY NEEDED 07/18 completed Not Available Not Available Not Available Remicade 100 mg intravenous solution 06/03 completed Not Available Not Available Not Available tramadol 50 mg tablet TAKE 1 TABLET BY MOUTH EVERY 8 HOURS NEEDED FOR PAIN 05/02 completed Not Available Not Available Not Available vancomycin 125 mg capsule TAKE 1 CAPSULE BY MOUTH EVERY 6 HOURS FOR 5 DAYS 06/03 completed Not Available Not Available Not Available pantoprazol e 20 mg tablet,tone yed release TAKE 1 TABLET BY MOUTH EVERY DAY active Not Available Not Available No t Available hydrocortis one 2.5 % topical cream with perineal applicator APPLY A THIN LAYER TO THE AFFECTED AREA(S) BY TOPICAL ROUTE 2-4 TIMES DAILY active Not Available Not Available No t Available lorazepam 0.5 mg tablet TAKE 1 TABLET BY MOUTH TWICE A DAY NEEDED 05/09 completed Not Available Not Available Not Available tamsulosin 0.4 mg capsule TAKE 1 CAPSULE BY MOUTH EVERY DAY FOR 90 DAYS active Not Available Not Available No t Available lorazepam 2 mg tablet TAKE 1 TABLET BY MOUTH THREE TIMES A DAY DIRECTED FOR 14 DAYS 04/05 completed Not Available Not Available Not Available sertraline 25 mg tablet Take 1 tablet every day by oral route. 03/14 completed Not Available Not Available Not Available hydroxyzine HCl 25 mg tablet TAKE 1 TABLET BY MOUTH THREE TIMES A DAY NEEDED FOR 30 DAYS 07/18 completed Not Available Not Available Not Available lorazepam 1 mg tablet TAKE 1 TABLET BY MOUTH TWICE A DAY NEEDED active Not Available Not Available No t Available Vitamin D2 1,250 mcg (50,000 unit) capsule 03/29 completed Not Available Not Available Not Available sertraline 50 mg tablet TAKE 1 TABLET BY MOUTH EVERY DAY active Not Available Not Available No t Available dicyclomine 10 mg capsule TAKE 1-2 10 MG CAPSULE BY MOUTH 2 TIMES A DAY NEEDED 06/03 completed Not Available Not Available Not Available dextroamphe tamine-amph etamine 5 mg tablet TAKE 1 TABLET BY MOUTH TWICE A DAY active Not Available Not Available No t Available naproxen 500 mg tablet Take 1 tablet twice a day by oral route for 15 days. active Not Available Not Available No t Available amoxicillin 500 mg-potassiu m clavulanate 125 mg tablet TAKE 1 TABLET BY MOUTH EVERY 8 HOURS,X1 DAYS 06/03 completed Not Available Not Available Not Available simethicone 80 mg chewable tablet CHEW AND SWALLOW 1 TABLET 3 TIMES DAILY 08/19 completed Not Available Not Available Not Available oxycodone 5 mg tablet TAKE 1 TABLET BY MOUTH FOUR TIMES A DAY NEEDED FOR 10 DAYS active Not Available Not Available No t Available acetaminoph en prn active Not Available Not Available Not Available ibuprofen prn active Not Available Not Minnie ilable Not Available Remicade One infusion every 8 weeks 06/03 completed Not Available Not Available Not Available mesalamine ER 0.375 gram capsule,ext ended release 24 hr TAKE 4 CAPSULES BY MOUTH ONCE A DAY 08/19 completed Not Available Not Available Not Available Stelara 90 mg/mL subcutaneou s syringe 90 MG SC EVERY 8 WEEKS active Not Available Not Available No t Available Entyvio 300 mg intravenous solution will be every 8 weeks 11/22 completed Not Available Not Available Not Available Flucelvax Quad 1069-5697 (PF) 60 mcg (15 mcg x 4)/0.5 mL IM syringe 06/11 completed Not Available Not Available Not Available Fluarix Quad (PF) 60 mcg (15 mcg x 4)/0.5 mL IM syringe 04/02 completed Not Available Not Available Not Available Flucelvax Quad (PF) 60 mcg (15 mcg x 4)/0.5 mL IM syringe 04/02 completed Not Available Not Available Not Available Vitals Date Recorded Body height Body mass index (BMI) Body weight Heart rate Oxygen saturation Oxygen saturation in Arterial blood by Pulse oximetry Systolic blood pressure Diastolic blood pressure Provider Name and Address Organization Details Last Updated DateTime 4 168.91 cm 34.2 kg/m2 22731.7 2 g 79 /min 98 % 98 % 112 mm[Hg] 78 mm[Hg] Ora Drew [facility] 4 11:21:40 Date Recorded Body height Body mass index (BMI) Body weight Heart rate Oxygen saturation Oxygen saturation in Arterial blood by Pulse oximetry Systolic blood pressure Diastolic blood pressure Provider Name and Address Organization Details Last Updated DateTime 4 168.91 cm 33.5 kg/m2 98293.2 7 g 79 /min 99 % 99 % 118 mm[Hg] 82 mm[Hg] Ora Drew [facility] 4 11:20:32 Date Recorded Body height Body mass index (BMI) Body weight Heart rate Oxygen saturation Oxygen saturation in Arterial blood by Pulse oximetry Systolic blood pressure Diastolic blood pressure Provider Name and Address Organization Details Last Updated DateTime 4 168.91 cm 32.7 kg/m2 35047.5 9 g 73 /min 98 % 98 % 138 mm[Hg] 88 mm[Hg] Ora [facility] 4 13:27:36 Social History Question Answer Notes LastModified by Organizat ion Details LastModified Time Tobacco Smoking Status Current Every Day Smoker Ora Drew [facility] [place] [facility] 03/28/2024 11:19:40 Do You Or Have You Ever Used E-cigarettes Or Vape? Current User Of Electronic Cigarettes Information not available 11/23/2023 What Was The Date Of Your Most Recent Tobacco Screening? 06/17/2024 Information not available 06/17/2024 Do You Or Have You Ever Used Smokeless Tobacco? Never Used Smokeless Tobacco Information not available 11/23/2023 How Much Tobacco Do You Smoke? 0.5 PPD Information not available 03/28/2024 How Many Years Have You Smoked Tobacco? 9 [id number] Information not available 06/05/2020 Do You Or Have You Ever Used Any Other Forms Of Tobacco Or Nicotine? Yes Information not available 11/23/2023 Sex: Unknown Functional Status None recorded. Mental Status None recorded. Family History Relationship Description Onset Age of this Age Resolved Age Notes LastModified by Organization Details LastModified Time Mother Disorder of thyroid gland 55 [email or web address] Not available 2018 09:33:35 Medical History Condition Response Coronary Artery Disease N Other N Gout N Blood Diseases N Kidney Stones N Breast Cancer N Blood Transfusion N Lung Disease N Depression N COPD N Defects or Inherited Disease N Anxiety Disorder N Muscle, Joint, or Bone Problems N Obesity N Vision or Eye Problems N Arthritis N Infertility N Polyps N Mental Disorder N Cancer N Stroke N Varicosities N Endometriosis N Bladder or Kidney Problems N High Cholesterol N Liver Disease N Fibromyalgia N Headaches N Kidney Disease N Allergies/Hayfever N Heart Problems N Hospitalizations N Thyroid Problems N GI Problems Y Eating Disorder N Skin Problems N Anemia N MRSA exposure N Constipation N Mental Illness N Diabetes N Ovarian Cancer N Seizures/Epilepsy N Tuberculosis N Congestive Heart Failure (CHF) N Eczema N Abuse/Domestic Violence N Diverticulitis N Asthma N Reflux/GERD N Hepatitis N Heart Disease N Pulmonary Embolism N Hypertension N Chicken Pox N Autism Spectrum Disorder (ASD) N Osteoporosis N Immunizations Vaccine Type Date Status Note Provider Nam e and Address Organization Details Recorded Time COVID-19, mRNA, LNP-S, PF, 100 mcg/0.5mL dose or 50 mcg/0.25mL dose 1 completed Not Available [facility] 04/10/2023 15:04:48 COVID-19, mRNA, LNP-S, PF, 100 mcg/0.5mL dose or 50 mcg/0.25mL dose 1 completed Not Available [facility] 04/10/2023 15:04:48 Influenza, split virus, quadrivalent, preservative 2 completed Not Available [facility] 04/10/2023 15:04:48 COVID-19, mRNA, LNP-S, PF, 100 mcg/0.5mL dose or 50 mcg/0.25mL dose 2 completed Not Available [facility] 04/10/2023 15:04:48 COVID-19, mRNA, LNP-S, PF, 50 mcg/0.5 mL dose 1 completed Not Available [facility] 04/10/2023 15:04:48 COVID-19, mRNA, LNP-S, PF, 50 mcg/0.5 mL dose 2 completed Not Available [facility] 04/10/2023 15:04:48 Tdap 1 completed Not Available [facility] 04/10/2023 15:04:48 SARS-COV-2 (COVID-19) vaccine, UNSPECIFIED 3 completed Not Available [facility] 04/10/2023 15:04:48 influenza, unspecified formulation 3 completed Not Available [facility] 04/10/2023 15:04:48 Influenza, split virus, quadrivalent, preservative 9 completed Not Available [facility] 04/10/2023 15:04:48 Past Encounters Encounter ID Performer Location Encounter Start Date Encounter Closed Date Diagnosis/Indication Diagnosis SNOMED-CT Code Diagnosis ICD10 Code Diagnosis Note [id number] [facility] [address] [place] [address] 03/17/2018 10:50:16 03/17/2018 13:26:26 Adult health examination 042985833 Z00.01 Active or passive immunization 841618366 Z23 Strain of muscle of left shoulder 1620585246 1435787 S46.912A rest, heat, and stretching if fails will order PT Microscopic hematuria 19 8001986 R31.21 Body mass index 25-29 - overweight 575247359 Z68.28 discussed diet and healthy lifestyle [id number] Lilia Dunlap NP, [facility] [address] [place] [address] 06/11/2018 10:55:36 06/11/2018 12:52:57 Acute sinusitis 36029751 J01.90 Ulcerative colitis 69376 004 K51.90 [id number] [facility] [address] [place] [address] 03/29/2019 09:23:38 03/29/2019 10:05:16 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 early atypical pna Acute chest pain 0044690 01 R07.9 dxd as pericardit is clinically , no imaging support will check sed and crp ekg was negative as was cxr, will consider repeat cxr ? atypical pna Tick bite without infection 785245134 W57.XXXA Leukocytosis 175015254 D 72.829 present prior to prednisone will complete pred in 2 days will need to continue to monitor [id number] November LisbetLULASAMINA [facility] [address] [facility], [place] [address] 04/12/2019 15:39:45 04/12/2019 16:31:06 Hemoptysis 79808165 R04.2 Cough 25533144 R05 possible pna undetected by cxr? Fever 513851420 R50.9 ? early atypical pna C-reactive protein outside reference range 162899768 R79.82 Microscopic hematuria 19 7534806 R31.21 Leukocytosis 466844628 D 72.829 present prior to prednisone slightly elevated compared to ER labs, but he just finished pred on thursday [id number] MARIAELENA HALL [facility] [address] [place] [address], [place] [address] 04/02/2020 13:18:35 04/02/2020 14:31:10 Adult health examination 171877976 Z00.00 no concerns today doing well just had BW thru GI which looked good Active or passive immunization 880888842 Z23 will get the flu shot later sept will skip the TDAP [id number] MARIAELENA HALL [facility] [address] [place] [address],[place] [address] 04/03/2021 08:52:49 04/09/2021 09:52:44 Active or passive immunization 166190702 Z23 will get the flu shot later sept will skip the TDAP Adult heal th examination 364038397 Z00.00 no concerns today doing well Fatigue 84318528 R53.83 stable Attention deficit hyperactivity disorder, 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 will fu with referral for eval [id number] MARIAELENA HALL [facility] [address] [facility] [address] [address] 04/08/2022 09:05:12 04/08/2022 09:58:44 Anxiety 02896143 F41.1 will start on higher dose of sertraline 50 mg and will adding Panic attack 098348335 F 41.0 will fu in two week [id number] MARIAELENA HALL [facility] [address] [facility] [address] [address] 04/22/2022 09:52:02 04/22/2022 15:41:08 Anxiety 02831698 F41.1 stable History of depression 16 5926647 Z86.59 stable Ulcerative colitis 62309 004 K51.90 stable [id number] MARIAELENA HALL [facility] [address] [facility] [address] [address] 06/03/2022 10:27:48 06/03/2022 13:38:29 Adult health examination 942725246 Z00.00 no concerns today doing well Ulcerative colitis 33177 004 K51.90 improving [id number] MARIAELENA HALL [facility] [address] [place] [address],[place] [address] 08/19/2022 08:58:27 08/19/2022 09:44:49 Adult attention deficit hyperactivity disorder 627200201 F90.2 will restart the 5 mg and fu with patient [id number] MARIAELENA HALL [facility] [address] [facility] [address] [address] 06/09/2023 13:29:09 06/09/2023 16:03:30 Adult attention deficit hyperactivity disorder 899978484 F90.2 will restart the 5 mg and fu with patient Ulcerative colitis 56697 004 K51.90 improving Sleep apnea 10317535 G47 .33 doing really good with the CPAP [id number] MARIAELENA HALL [facility] [address] [facility] [address] [address] 11/23/2023 14:06:12 11/23/2023 16:44:24 History of depression 592220836 Z86.59 stable Crohn's disease 18642186 K50.00 stable Muscle pain 76902257 M79 .18 agreed to tramadol PRN for muscle as he comes off the prednisone Adult atte ntion deficit hyperactivity disorder 947854624 F90.2 will restart the 5 mg and fu with patient Melanocyti c nevus of skin 148938769 D22.5 agreed to derm referral Colitis 97738321 K51.90 stable currently External hemorrhoids 239 88898 K64.4 will try higher dosed steriod Impaired f asting glycemia 833770968 R73.01 agreed to check his sugar levels given long-term use of steriods Long-term current use of immunosuppressive drug 548767484 Z79.60 will set up with bone density due to long-term use of prednisone over 2 years [id number] MARIAELENA HALL [facility] [address] [facility], [place] [address] 03/08/2024 13:38:12 03/08/2024 14:56:02 Panic attack 718604779 F41.0 will start on adjusted dose of the ativan and start on hydroxyzin e as well for the severe panic he is experienci ng Anxiety 76280113 F41.1 fu next week [id number] MARIAELENA HALL [facility] [address] [facility], [employer] [place] [address] 03/14/2024 10:03:13 03/14/2024 11:20:12 Depression screening 820879829 Z13.31 continue plan as prescribed Depressive disorder 3548 9007 F32.1 doing bettercont inue current medication regimine [id number] MARIAELENA HALL [facility] [address] [facility], [place] [address] 03/28/2024 11:04:23 03/28/2024 11:55:43 Crohn's disease 85832407 K50.00 stable Depressive disorder 3548 9007 F32.1 doing bettercont inue current medication regimine Panic attack 606027850 F 41.0 will start on adjusted dose of the ativan and start on hydroxyzin e as well for the severe panic he is experienci ng Anxiety 48227296 F41.1 fu next week [id number] MARIAELENA HALL [facility] [address] [facility] [address] [address] 04/05/2024 10:54:58 04/05/2024 12:17:29 Panic attack 130821487 F41.0 improving Anxiety 42051650 F41.1 needs refill Depressive disorder 3548 9007 F32.1 more tempered mood, much more stable [id number] [facility] [address] [address] 04/08/2024 09:21:10 04/08/2024 13:56:13 History of calculus of kidney [id number] Z87.442 will set up with STAT CT [id number] MARIAELENA HALL [facility] [address] [address] 04/29/2024 09:08:15 04/29/2024 11:30:20 Adult attention deficit hyperactivity disorder [id number] F90.2 stable Anxiety 86770920 F41.1 stable Crohn's disease [id number] K50.00 stable Kidney stone [id number] N2 0.[address] order from urology [id number] MARIAELENA HALL [facility] [address] [facility] [address] [address] 06/17/2024 13:23:18 06/17/2024 13:56:50 Active or passive immunization [id number] Z23 will get the flu shot later sept will skip the TDAP Adult heal th examination [id number] Z00.00 no concerns today doing well Health Concerns Section Related Observation LastModified by Organization Detai ls LastModified Time None Recorded Concern Status LastModified by Organization Details LastModified Time None Recorded Advance Directives Directive None Recorded Payers Encounter Date Sequence Insurance Name Policy Number Policy Scott Covered Member ID Scott Member ID Guarantor Name 03/28/2024 1 [facility] ([facility]) [id number] Slick Zapata [id number] Slick H Benny 04/05/2024 1 [facility] (O) [id number] Slick H Benny [id number] Slick H Benny 04/08/2024 1 [facility] (O) [id number] Slick H Benny [id number] Slick H Benny 04/29/2024 1 [facility] (O) [id number] Slick H Benny [id number] Slick H Benny 06/17/2024 1 [facility] (O) [id number] Slick H Benny [id number] Slick H Benny Notes Date Note Type Note Provider Name a mn Address Organization Details Recorded Time 4 text/html 2 week f/u the patient reports that he did have an episode of anxiety prior to his couples therapy apptbut after that he has actually felt pretty goodthinking about getting a new couples therapist, doesn't feel the one he has been helpful medications have been really goodwill be helping him come down to his regular dose of ativan can continue other medications as prescribed continue on 25 mg of sertraline will also try dosing down the hydroxyzine later onwill fu next week before I leave on vacation MARIAELENA HALL [address] [facility], [place], [address], [facility] 03/28/2024 11:55:05 4 text/html 1 week f/u the patient is doing okaydid okay this weekenddid have some passive thoughts of nothing being alive on Sat, no plans, stopped having those thoughts around late morning and was fine since agreed to sertraline increase, will take the full 50 mg tabletcan continue hydroxyzine continue the ativan as needed discussed some coping mechanisms and how to talk to her MARIAELENA HALL [address] [facility], [place], [address], [facility] 04/05/2024 11:44:24 4 text/html c/o kidney stone The patient is participating in this appointment via telemedicine communication with a phone call/video calling service (Doxy)The patient consents to use of these platforms in place of an in-person appointment due to either sick symptoms the patient is presenting with or current office closure due to COVID exposure in order to keep our office staff and patients safe the patient has blood in his urine and left flank pain, mod to severeno fever, no chillsno pain with urination, just dark red urine most likely a kidney stonerecommended VIRGINIE CT with urine samplestart on tamsulosin and oxycodonegiven instructions for fluid intake MARIAELENA HALL [address] [place], [address], [facility] 04/08/2024 10:27:31 4 text/html 3 week f/u The patient is participating in this appointment via telemedicine communication with a phone call/video calling service (Casandra)The patient consents to use of these platforms in place of an in-person appointment due to either sick symptoms the patient is presenting with or current office closure due to COVID exposure in order to keep our office staff and patients safe saw urology, got XR was obscured on right side, had him do UA, no blood in the urineordered him a CT again to check where the stone is, if it's still obstructing his ureter the patient has a weaker stream, doesn't feel like him empties his bladder fullypain has improvedno more blood in the urine mental healthwise he is doing goodworking with his new therapist and his meds are working well for the patient MARIAELENA HALL [address] [place], [address], [facility] 04/29/2024 11:24:02 4 text/html Annual WellnessReported bypatient.Diet and Nutrition:healthy diet; discussed vitamin and supplement use; discussed portion control; discussed maintaining calcium balance; discussed diet improvement Fracture Risk:no history of fractures; no recent explained fracture; no sudden unexplained fractures; no previous musculoskeletal injuries Physical Activity:exercises on a regular basis; recent increase in physical activity; good physical condition Additional Lifestyle Factors:no tobacco use; drinks alcohol (mild-moderate) Depression Risk:never feels sad, empty, or tearful; no loss of interest in activities; no significant changes in weight; no sleep disturbances or insomnia; no agitation; no loss of energy; no feelings of worthlessness or guilt; no thoughts of suicide; no history of depression; no history of mood disorders Hearing:no loss of hearing Vision:no vision problems the patient is seeing uro after today's appt for his kidney stonestill having pain but not as bad as it was when he first developed the stone the patient is using oxycodone sparingly the patient's is working with his therapist and his therapist with his marriagecurrently [facility] MARIAELENA HALL [address] [place] [address], [phone], [facility] 06/17/2024 13:54:53
== END 2024-08-31 16:00 | disposition home or self-care (01) ==
PROVIDERS: PCP Physician Assistant; Visit Provider Nurse Practitioner Family
DX: R10.9 Unspecified abdominal pain (principal); N20.0 Calculus of kidney; Z13.9 Encounter for screening, unspecified
CPT/HCPCS: 99024

== ENCOUNTER → 2024-08-31 14:59 | Outpatient (BNVA) | payer OTHER, SELFPAY | PROVIDERS: PCP Physician Assistant; Visit Provider Nurse Practitioner Family | DX: N20.0 Calculus of kidney (principal); R10.9 Unspecified abdominal pain | CPT/HCPCS: 81003; 99212 ==

== ENCOUNTER 2024-09-09 08:00 | Outpatient (REF) | payer OTHER, SELFPAY ==
--- OUTSIDE RECORDS SUMMARY | 2024-09-09 08:04 | XMS_ITS | Data Portability ---
Author Organization [facility] Address [address] [place] [address] Assessment Encounter Date Assessment Date Assessment LastModified [...] urinalysi s complete, reflex culture 2023 024 [facility], [address] [place] [address], [place], [address], 04/12/2024 11:18:54 Referral None recorded. Procedures None recorded. Surgeries None recorded. Imaging CT, abdomen + pelvis, w/o contrast - r/o kidney stone 2023 024 [email or web address] [address] [facility], [facility] [address], [place], [address], 04/11/2024 10:12:38 Medication Orders lorazepam 1 mg tablet 2023 024 [place], [address] [place], [address], 04/05/2024 11:40:50 tamsulosi n 0.4 mg capsule 2023 024 [id number], [address] [facility], [place], [address], 04/08/2024 10:23:15 oxycodone 5 mg tablet 2023 024 [id number], [address] [facility], [place], [address], 04/08/2024 10:23:20 Patient TargetsNo targets recorded. Patient InstructionsNo instructions recorded. Reason for Referral None Reported. Results Created Date Observation Date Name Description Value Unit Range Abnormal Flag Note LastModifiedBy Organization Detail LastModifiedTime 04/11/20 24 04/11/2024 CT, abdom en + pelvi s, w/o contr ast No observ ation record ed. [facility] [place] [place] [address], [address], 04/11/2024 15:38:46 04/26/20 24 04/26/2024 XR, kidne y + urete r + bladd er No observ ation record ed. [facility] (Medical Records) [address] [place], [address], 04/26/2024 12:15:58 07/07/20 24 07/06/2024 CT, abdom en + pelvi s, w/o contr ast No observ ation record ed. [facility] (Medical Records) [address] [place], [address], 07/08/2024 09:07:14 08/22/19 25 08/22/2024 CT, abdom en + pelvi s, w/o contr ast No observ ation record ed. rtry [facility] [place] [address] [address], [place], [address], 08/22/2024 10:26:29 Result Notes None recorded. Problems Name Problem SNOMED Code Status Onset Date Resolution Date Notes Provider Name and Address Organization Details Recorded Time Ulcerative colitis 30586673 Active 2017 Not Available [facility] 3 09:54:27 History of depression 956108265 Active 2017 Not Available [facility] 3 09:54:27 Acid reflux 215920578 Active 2017 Not Available [facility] 3 09:54:27 Anxiety 94412816 Active 2017 Not Available [facility] 3 09:54:27 Varicella 95139783 Active 2017 Not Available [facility] 3 09:54:27 Anemia 823605357 Active 2017 2/2 UC Not Available [facility] 3 09:54:27 Migraine 23081199 Active 2017 Not Available [facility] 3 09:54:27 Hemorrhoid s 58304786 Active 2017 Not Available [facility] 3 09:54:27 Lyme disease 18360110 Active 2017 Not Available [facility] 3 09:54:27 Panic attack 527500941 Active 2021 Not Available [facility] 3 09:54:27 Adult attention deficit hyperactiv ity disorder 226527984 Active 2022 Not Available [facility] 3 09:54:27 Crohn's disease 35681222 Active 2022 Not Available [facility] 3 09:54:27 Sleep apnea 01898073 Active 2022 MARIAELENA HALL [address] [place] [address], [address], [facility] 3 13:51:36 Muscle pain 45739358 Active 2023 MARIAELENA HALL [address] [place], [address], [facility] 4 14:25:03 Melanocyti c nevus of skin 577924942 Active 2023 MARIAELENA HALL [address] [place] [address], [address], [facility] 4 14:29:10 Colitis 18192050 Active 2023 MARIAELENA HALL [address] [place] [address], [address], [facility] 4 14:31:39 External hemorrhoid s 89040076 Active 2023 MARIAELENA HALL [address] [place] [address], [address], [facility] 4 14:32:42 Impaired fasting glycemia 502452920 Active 2023 MARIAELENA HALL [address] [place] [address], [address], [facility] 4 14:35:57 Depressive disorder 56283191 Active 2023 MARIAELENA HALL [address] [place] [address], [address], [facility] 4 10:24:16 Kidney stone 36813335 Active 2023 MARIAELENA HALL [address] [place] [address], [address], [facility] 4 15:39:37 Problem Notes None recorded. Procedures Surgical History Date Name Laterality Status Provider Name and Address Organization Details Recorded Time 9 Colonoscopy completed [facility] 09/10/2018 08:45:52 5 Colonoscopy completed [facility] 03/16/2018 16:35:24 Imaging Results Imaging Date Name Status LastModified by Organiz ation Details LastModified Time 04/11/2024 CT, abdomen + pelvis, w/o contrast completed [facility] [place] [address] [address], [place], [address], 04/11/2024 15:38:46 04/26/2024 XR, kidney + ureter + bladder completed [facility] (Medical Records) [address] [place], [address], 04/26/2024 12:15:58 07/06/2024 CT, abdomen + pelvis, w/o contrast completed [facility] (Medical Records) [address] [place], [address], 07/08/2024 09:07:14 08/22/2024 CT, abdomen + pelvis, w/o contrast completed [facility] [place] [address] [facility] [address], [place], [address], 08/22/2024 10:26:29 Procedure Notes None recorded. Medical Equipment None Reported. Allergies Allergen ID Allergen Name Allergen Category Reaction Reaction Severity Criticality Documentation Date Start Date Code Code System Note Provider Name and Address Organization Details Recorded Time 2152 Substance with sulfonami de structure and antibacte rial mechanism of action (substanc e) medicatio n rash Not available Not available 03/17/2018 42969 8003 SNOMED Betzy bo, [facility] 8 11:01:18 6307 Wellbutri n medicatio n other Not available Not available 08/19/2022 87442 RxNorm shake s, chill s, body aches MARIAELENA HALL [address] [place] [address], [address], [facility] 3 09:17:51 Medications Name Sig [...] Available Not Available Not Available Flucelvax Quad [id number] (PF) 60 mcg (15 mcg x 4)/0.5 [...] Updated DateTime 4 168.91 cm 34.2 kg/m2 43557.7 2 g 79 /min 98 % 98 % 112 mm[Hg] 78 mm[Hg] Oar Drew [facility] 4 11:21:40 Date Recorded Body height Body mass index (BMI) Body weight Heart rate Oxygen saturation Oxygen saturation in Arterial blood by Pulse oximetry Systolic blood pressure Diastolic blood pressure Provider Name and Address Organization Details Last Updated DateTime 4 168.91 cm 33.5 kg/m2 43647.2 7 g 79 /min 99 % 99 % 118 mm[Hg] 82 mm[Hg] Ora Drew [facility] 4 11:20:32 Date Recorded Body height Body mass index (BMI) Body weight Heart rate Oxygen saturation Oxygen saturation in Arterial blood by Pulse oximetry Systolic blood pressure Diastolic blood pressure Provider Name and Address Organization Details Last Updated DateTime 4 168.91 cm 32.7 kg/m2 08097.5 9 g 73 /min 98 % 98 % 138 mm[Hg] 88 mm[Hg] Ora Turner [facility] 4 13:27:36 Social History Question Answer Notes LastModified by Organizat ion Details LastModified Time Tobacco Smoking Status Current Every Day Smoker Ora Drew [facility] 03/28/2024 11:19:40 Do You Or Have You [...] Many Years Have You Smoked Tobacco? 9 [id number] Information not available 06/05/2020 Do You Or [...] 50 mcg/0.25mL dose 1 completed Not Available [facility] 04/10/2023 15:04:48 COVID-19, mRNA, LNP-S, PF, 100 mcg/0.5mL dose or 50 mcg/0.25mL dose 1 completed Not Available [facility] 04/10/2023 15:04:48 Influenza, split virus, quadrivalent, preservative 2 completed Not Available [facility] 04/10/2023 15:04:48 COVID-19, mRNA, LNP-S, PF, 100 mcg/0.5mL dose or 50 mcg/0.25mL dose 2 completed Not Available [facility] 04/10/2023 15:04:48 COVID-19, mRNA, LNP-S, PF, 50 mcg/0.5 mL dose 1 completed Not Available [facility] 04/10/2023 15:04:48 COVID-19, mRNA, LNP-S, PF, 50 mcg/0.5 mL dose 2 completed Not Available [facility] 04/10/2023 15:04:48 Tdap 1 completed Not Available [facility] 04/10/2023 15:04:48 SARS-COV-2 (COVID-19) vaccine, UNSPECIFIED 3 completed Not Available [facility] 04/10/2023 15:04:48 influenza, unspecified formulation 3 completed Not Available [facility] 04/10/2023 15:04:48 Influenza, split virus, quadrivalent, preservative 9 completed Not Available [facility] 04/10/2023 15:04:48 Past Encounters Encounter ID Performer Location Encounter Start Date Encounter Closed Date Diagnosis/Indication Diagnosis SNOMED-CT Code Diagnosis ICD10 Code Diagnosis Note [id number] [facility] [address] [place] [address] 03/17/2018 10:50:16 03/17/2018 13:26:26 Adult health examination 218163378 Z00.01 Active or passive immunization 759847871 Z23 Strain of muscle of left shoulder 9276187459 1829956 S46.912A rest, heat, and stretching if fails will order PT Microscopic hematuria 19 3320637 R31.21 Body mass index 25-29 - overweight 833102072 Z68.28 discussed diet and healthy lifestyle [id number] Lilia Dunlap NP, [facility] [address] [place] [address] 06/11/2018 10:55:36 06/11/2018 12:52:57 Acute sinusitis 08411926 J01.90 Ulcerative colitis 23739 004 K51.90 [id number] [facility] [address] [place] [address] 03/29/2019 09:23:38 03/29/2019 10:05:16 Auditory processing disorder 479372213 H93.25 with speech delay will have lamont selby and consult for treatment Ulcerative colitis 72773 004 K51.90 Adult [facility] th examination 343710078 Z00.01 Active or passive immunization 348239759 Z23 tdap not covered by insurance Body mass index 25-29 - overweight 335412329 Z68.28 discussed diet and healthy lifestyle [id number] [facility] [address] [facility] [place] [address] 04/08/2019 11:33:04 04/08/2019 12:23:46 Fever 516474765 R50.9 ? early atypical pna Acute chest pain 2381793 01 R07.9 dxd as pericardit is clinically , no imaging support will check sed and crp ekg was negative as was cxr, will consider repeat cxr ? atypical pna Tick bite without infection 959536787 W57.XXXA Leukocytosis 500702301 D 72.829 present prior to prednisone will complete pred in 2 days will need to continue to monitor [id number] November LisbetLULASAMINA [facility] [address] [facility], [place] [address] 04/12/2019 15:39:45 04/12/2019 16:31:06 Hemoptysis 22178781 R04.2 Cough 70412556 R05 possible pna undetected by cxr? Fever 394077459 R50.9 ? early atypical pna C-reactive protein outside reference range 384758611 R79.82 Microscopic hematuria 19 8161792 R31.21 Leukocytosis 732003390 D 72.829 present prior to prednisone slightly elevated compared to ER labs, but he just finished pred on thursday [id number] MARIAELENA HALL [facility] [address] [place] [address], [place] [address] 04/02/2020 13:18:35 04/02/2020 14:31:10 Adult health examination 877037902 Z00.00 no concerns today doing well just had BW thru GI which looked good Active or passive immunization 605290295 Z23 will get the flu shot later sept will skip the TDAP [id number] MARIAELENA HALL [facility] [address] [place] [address],[place] [address] 04/03/2021 08:52:49 04/09/2021 09:52:44 Active or passive immunization 688399737 Z23 will get the flu shot later sept will skip the TDAP Adult heal th examination 737374214 Z00.00 no concerns today doing well Fatigue 28335065 R53.83 stable Attention deficit hyperactivity disorder, 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 will fu with referral for eval [id number] MARIAELENA HALL [facility] [address] [facility] [address] [address] 04/08/2022 09:05:12 04/08/2022 09:58:44 Anxiety 99840885 F41.1 will start on higher dose of sertraline 50 mg and will adding Panic attack 503657137 F 41.0 will fu in two week [id number] MARIAELENA HALL [facility] [address] [facility] [address] [address] 04/22/2022 09:52:02 04/22/2022 15:41:08 Anxiety 59435106 F41.1 stable History of depression 16 7628212 Z86.59 stable Ulcerative colitis 22609 004 K51.90 stable [id number] MARIAELENA HALL [facility] [address] [facility] [address] [address] 06/03/2022 10:27:48 06/03/2022 13:38:29 Adult health examination 699817128 Z00.00 no concerns today doing well Ulcerative colitis 15861 004 K51.90 improving [id number] MARIAELENA HALL [facility] [address] [place] [address],[place] [address] 08/19/2022 08:58:27 08/19/2022 09:44:49 Adult attention deficit hyperactivity disorder 030076175 F90.2 will restart the 5 mg and fu with patient [id number] MARIAELENA HALL [facility] [address] [facility] [address] [address] 06/09/2023 13:29:09 06/09/2023 16:03:30 Adult attention deficit hyperactivity disorder 236411996 F90.2 will restart the 5 mg and fu with patient Ulcerative colitis 01273 004 K51.90 improving Sleep apnea 22804748 G47 .33 doing really good with the CPAP [id number] MARIAELENA HALL [facility] [address] [facility] [address] [address] 11/23/2023 14:06:12 11/23/2023 16:44:24 History of depression 482907818 Z86.59 stable Crohn's disease 02205297 K50.00 stable Muscle pain 18483543 M79 .18 agreed to tramadol PRN for muscle as he comes off the prednisone Adult atte ntion deficit hyperactivity disorder 778796099 F90.2 will restart the 5 mg and fu with patient Melanocyti c nevus of skin 186878459 D22.5 agreed to derm referral Colitis 88838144 K51.90 stable currently External hemorrhoids 239 95904 K64.4 will try higher dosed steriod Impaired f asting glycemia 070457294 R73.01 agreed to check his sugar levels given mcc use of steriods Long-term current use of immunosuppressive drug 098835233 Z79.60 will set up with bone density due to mcc use of prednisone over 2 years [id number] MARIAELENA HALL [facility] [address] [facility], [place] [address] 03/08/2024 13:38:12 03/08/2024 14:56:02 Panic attack 274098369 F41.0 will start on adjusted dose of the ativan and start on hydroxyzin e as well for the severe panic he is experienci ng Anxiety 11463461 F41.1 fu next week [id number] MARIAELENA HALL [facility] [address] [facility], [place] [address] 03/14/2024 10:03:13 03/14/2024 11:20:12 Depression screening 198469064 Z13.31 continue plan as prescribed Depressive disorder 3548 9007 F32.1 doing bettercont inue current medication regimine [id number] MARIAELENA HALL [facility] [address] [facility], [place] [address] 03/28/2024 11:04:23 03/28/2024 11:55:43 Crohn's disease 88473109 K50.00 stable Depressive disorder 3548 9007 F32.1 doing bettercont inue current medication regimine Panic attack 666847633 F 41.0 will start on adjusted dose of the ativan and start on hydroxyzin e as well for the severe panic he is experienci ng Anxiety 13741606 F41.1 fu next week [id number] MARIAELENA HALL [facility] [address] [facility] [address] [address] 04/05/2024 10:54:58 04/05/2024 12:17:29 Panic attack 384848244 F41.0 improving Anxiety 49194619 F41.1 needs refill Depressive disorder 3548 9007 F32.1 more tempered mood, much more stable [id number] [facility] [address] [facility] [address] [address] 04/08/2024 09:21:10 04/08/2024 13:56:13 History of calculus of kidney 086799384 Z87.442 will set up with STAT CT [id number] MARIAELENA HALL [facility] [address] [facility] [address] [address] 04/29/2024 09:08:15 04/29/2024 11:30:20 Adult attention deficit hyperactivity disorder 842385706 F90.2 stable Anxiety 19120047 F41.1 stable Crohn's disease 53167798 K50.00 stable Kidney stone 28563126 N2 0.[address] order from urology [id number] MARIAELENA HALL [facility] [address] [facility] [address] [address] 06/17/2024 13:23:18 06/17/2024 13:56:50 Active or passive immunization 591075109 Z23 will get the flu shot later sept will skip the TDAP Adult heal th examination 634068751 Z00.00 no concerns today doing well Health Concerns Section Related Observation LastModified by Organization Detai ls LastModified Time None Recorded Concern Status LastModified by Organization Details LastModified Time None Recorded Advance Directives Directive None Recorded Payers Encounter Date Sequence Insurance Name Policy Number Policy Scott Covered Member ID Scott Member ID Guarantor Name 03/28/2024 1 [facility] (O) [id number] Slick Zapata [id number] Slick H Benny 04/05/2024 1 [facility] (O) [id number] Slick H Benny [id number] Slick H Benny 04/08/2024 1 [facility] (O) [id number] Slick H Benny [id number] Slick H Benny 04/29/2024 1 [facility] (O) [id number] Slick H Benny [id number] Slick H Benny 06/17/2024 1 [facility] (O) [id number] Slick H Benny [id number] Slick H Benny Notes Date Note Type Note Provider Name a ny Address Organization Details Recorded Time 4 text/html [...] I leave on vacation MARIAELENA HALL [address] [facility], [place], [address], [facility] 03/28/2024 11:55:05 4 text/html 1 [...] to talk to her MARIAELENA HALL [address] [facility], [place], [address], [facility] 04/05/2024 11:44:24 4 text/html c/o [...] instructions for fluid intake MARIAELENA HALL [address] [place], [address], [facility] 04/08/2024 10:27:31 4 text/html 3 [...] well for the patient MARIAELENA HALL [address] [place], [address], [facility] 04/29/2024 11:24:02 4 text/html Annual [...] therapist with [facility] MARIAELENA HALL [address] [place] [address], [address], [facility] 06/17/2024 13:54:53
--- OUTSIDE RECORDS SUMMARY | 2024-09-09 08:04 | XMS_ITS | Clinical Summary ---
Author Organization [facility] Address [address] [place] [address] Care Team Providers Care Web Applications Developer Name Role Phone Roverto Chauhan MD Primary Care Provider [phone] Social History Tobacco Use Types Packs/Day Years [...] patient's age to complete this topic Insurance [place] [address] [employer] FEE FOR SERVICE PPO * Guarantor: REINA ESCREEN Account Type Relation to Patient Date of Phone Billing Address Occupational [employer] [phone] (Home) [phone] (Work) C/O ESCREEN ATTN: A/P [address] [address] [place] [address] Care Teams Web Applications Developer Relationship Specialty Start Date End Date Roverto Chauhan MD [address] [place] [address] PCP - General 06/03/08
== END 2024-09-09 08:01 | disposition home or self-care (01) ==
LOC: HO.CT 08:00
PROVIDERS: PCP Physician Assistant; Visit Provider Nurse Practitioner Family
DX: R10.9 Unspecified abdominal pain (principal); N13.30 Unspecified hydronephrosis; N20.0 Calculus of kidney

== ENCOUNTER → 2024-09-09 08:01 | Outpatient (BNV) | payer OTHER, SELFPAY | PROVIDERS: PCP Physician Assistant; Visit Provider Radiology Diagnostic Radiology | DX: R10.9 Unspecified abdominal pain (principal) | CPT/HCPCS: 74176 ==

== ENCOUNTER 2024-09-13 09:30 | Day surgery (SDC) | payer OTHER, SELFPAY ==
--- NOTE | 2024-09-12 13:55 | HO.ANESPROP2 ---
Documented by User: Steff Sorenson NP 09/12/24 13:56 HPI - Anesthesia Eval Consult details Narrative: 38yo M for RIght Cystoscopy, Ureteroroscopy, Retro, Laser,with stent placement s/p ESWL 07/2024 with MAC PMFSH Active Problems Active Problems: All Active Problems Flank pain (Acute) Hydronephrosis (Acute) Kidney stone (Acute) Past Medical History Medical History Kidney stone Depressive disorder Colitis Melanocytic nevus Muscle pain Sleep apnea Adult attention deficit hyperactivity disorder Lyme disease Hemorrhoids Migraine Anemia Varicella History of depression Ulcerative colitis Surgical History Surgical History History of colonoscopy History of Problems with Anesthesia: No Social History Social History Are you a primary manager urgent care to a significant other at home: No Do you presently have visiting nurse or other home services: No Patient Tobacco Use Status: Current everyday Tobacco user Tobacco use type: Smokeless Tobacco Second Hand Smoke Exposure: No Use of substances other than those prescribed or required for medical reasons: No Have you been hit, kicked, punched, or otherwise hurt by someone within the past year? If so, by whom?: No Are you DNR?: No Advance Directives: No Advance Directives Information Provided: Yes Advance Directives on File: No Recently lost weight without trying: No Eating poorly because of decreased appetite: No Nutrition Risks: No Nutritional Risk Poor oral hygiene: No Meds Allergies Allergy/AdvReac Type Severity Reaction Status Date / Time Sulfa (Sulfonamide Allergy Unknown Verified 08/31/24 16:03 Antibiotics) Home Medications ?Medication ?Instructions ?Recorded ?Confirmed ?Last Taken ?Type dextroamphetamine-amphetamine 5 mg 1 tab PO BID 04/25/24 09/13/24 Unknown History tablet lorazepam 1 mg tablet 1 mg PO BID 04/25/24 09/13/24 09/10/24 History sertraline 50 mg tablet 50 mg PO DAILY 04/25/24 09/13/24 09/13/24 History ustekinumab 90 mg/mL subcutaneous 90 mg subcut Q8W 07/12/24 09/13/24 08/23/24 History syringe (Stelara) Assessment and Plan Assessment Anesthesia Assessment: Chart Reviewed Final Anesthetic Review History of Problems with Anesthesia: No Documented by User: Viola Mallory MD 09/13/24 10:38 PMFSH Active Problems Active Problems: All Active Problems Flank pain (Acute) Hydronephrosis (Acute) Kidney stone (Acute) RICARDO. Uses CPAP machine Past Medical History Medical History Kidney stone Depressive disorder Colitis Melanocytic nevus Muscle pain Sleep apnea Adult attention deficit hyperactivity disorder Lyme disease Hemorrhoids Migraine Anemia Varicella History of depression Ulcerative colitis Family History Family history of problems with anesthesia: No Surgical History Surgical History History of colonoscopy History of Problems with Anesthesia: No Social History Social History Are you a primary manager urgent care to a significant other at home: No Do you presently have visiting nurse or other home services: No Patient Tobacco Use Status: Current everyday Tobacco user Tobacco use type: Smokeless Tobacco Second Hand Smoke Exposure: No Use of substances other than those prescribed or required for medical reasons: No Have you been hit, kicked, punched, or otherwise hurt by someone within the past year? If so, by whom?: No Are you DNR?: No Advance Directives: No Advance Directives Information Provided: Yes Advance Directives on File: No Recently lost weight without trying: No Eating poorly because of decreased appetite: No Nutrition Risks: No Nutritional Risk Poor oral hygiene: No Meds Allergies Allergy/AdvReac Type Severity Reaction Status Date / Time Sulfa (Sulfonamide Allergy Unknown Verified 08/31/24 16:03 Antibiotics) Home Medications ?Medication ?Instructions ?Recorded ?Confirmed ?Last Taken ?Type dextroamphetamine-amphetamine 5 mg 1 tab PO BID 04/25/24 09/13/24 Unknown History tablet lorazepam 1 mg tablet 1 mg PO BID 04/25/24 09/13/24 09/10/24 History sertraline 50 mg tablet 50 mg PO DAILY 04/25/24 09/13/24 09/13/24 History ustekinumab 90 mg/mL subcutaneous 90 mg subcut Q8W 07/12/24 09/13/24 08/23/24 History syringe (Stelara) Exam Height,Weight and Vital Signs: Height 5 ft 7 in Weight 99.79 kg Vital Signs Temp Pulse Resp BP Pulse Ox O2 Del Method 09/13/24 09:57 98.5 F 68 16 133/89 100 Room Air Airway Mallampati Class: III TM Dist: >3cm Neck ROM: Full Loose/Missing/Broken Teeth: Yes (Missing wisdom teeth. Denies broken or loose teeth) Heart: RRR Lungs: CTAB Assessment and Plan Assessment Anesthesia Assessment: Anesthesia Plan Discussed and Chart Reviewed Final Anesthetic Review Family History of Problems with Anesthesia: No History of Problems with Anesthesia: No NPO: Yes ASA Class: III Final Preanesthetic Review: No Changes in Pt Med Stat, Meds/Allgs Chart Reviewed, Consent Obtained/Reviewed and Anes Risks/Benef Reviewed Patient Risk: Intermediate Procedure Risk: Low Assessment/Block/Sedation in SS: Assess/Block/Sedation-SS Anesthetic Plan Anesthetic Plan: GA Disposition: Standard PACU
[2024-09-13] VITALS (8 sets, daily range): BP systolic 118–139; BP diastolic 71–95; PULSE 67–82; RESP 12–18; TEMP 36.1–36.9; O2SAT 97–100; BMI 34.5
--- NOTE | ~2024-09-13 | FL_ITS ---
EXAMINATION: FL GUIDANCE ONLY HISTORY: STONE RIGHT COMPARISON: Correlation is made with an unenhanced CT of the abdomen and pelvis dated 09/09/2024. TECHNIQUE: Fluoroscopy time: 41 seconds. Cumulative Dose: 17.58 mGy. Images: 4. FINDINGS: Images demonstrate placement of a right nephroureteral stent. FL/FL guidance in OR IMPRESSION: Fluoroscopy during procedure. Please see procedure report for additional information. Electronically signed by: Everett Grissom MD 09/13/2024 01:28 PM [facility]
--- NOTE | 2024-09-13 10:05 | MHC.SHP ---
Pre-Procedural Eval Section A - 24 Hr Update-Section A only Date of Service: 09/13/24 The patient is an INPATIENT: No The patient has been examined within 24 hours of the surgical procedure. The History & Physical has been completed within 30 days and I have reviewed it.: Yes Section B - Complete if H&P > 30 days Chief Complaint: Hydronephrosis with renal and ureteral calculous o Allergies: Allergies Allergy/AdvReac Type Severity Reaction Status Date / Time Sulfa (Sulfonamide Allergy Unknown Verified 08/31/24 16:03 Antibiotics) Plan Diagnosis/Plan: Unchanged I have reviewed the history and physical and performed a pertinent physical examination on my patient. No changes have occurred unless specified. Plan for Cystoscopy, right ureteroscopy, possible laser lithotripsy, possible ureteral stent. Risks discussed included but not limited to, possible need to repeat procedure if stone is not completely fragmented, Irritative voiding symptoms, bladder spasms, urgency, blood in urine. Time Spent With Patient Time: Total time managing care of this patient today ____ minutes.
--- OUTSIDE RECORDS SUMMARY | 2024-09-13 10:36 | XMS_ITS | Clinical Summary ---
Author Organization [facility] Address [address] [place] [address] Care Team Providers Care Retinal Angiographer Name Role Phone Roverto Chauhan MD Primary Care Provider [phone] Social History Tobacco Use Types Packs/Day Years [...] topic [facility] [place] [address] [employer] FEE FOR SERVICE PPO * Guarantor: [employer] Account Type Relation to Patient Date of Phone Billing Address [employer] [phone] 24 (Home) [phone] (Work) [employer] ATTN: A/P [address] [address] [place] [address] Care Teams Retinal Angiographer Relationship Specialty Start Date End Date Roverto Chauhan MD [address] [place] [address] PCP - General 06/03/08
--- OUTSIDE RECORDS SUMMARY | 2024-09-13 10:37 | XMS_ITS | Data Portability ---
Author Organization [facility] Home Service Address [address] [place] [address] Assessment Encounter Date Assessment Date Assessment LastModified [...] urinalysi s complete, reflex culture 2023 024 [facility], [address] [place] [address], [place], [address], 04/12/2024 11:18:54 Referral None recorded. Procedures None recorded. Surgeries None recorded. Imaging CT, abdomen + pelvis, w/o contrast - r/o kidney stone 2023 024 [email or web address] [facility], [facility] [address], [place], [address], 04/11/2024 10:12:38 Medication Orders lorazepam 1 mg tablet 2023 024 [facility], [address] [place], [address], 04/05/2024 11:40:50 tamsulosi n 0.4 mg capsule 2023 024 [facility], [address] [facility], [place], [address], 04/08/2024 10:23:15 oxycodone 5 mg tablet 2023 024 [facility]037[facility], [address] [facility], [place], [address], 04/08/2024 10:23:20 Patient TargetsNo targets recorded. Patient InstructionsNo instructions recorded. Reason for Referral None Reported. Results Created Date Observation Date Name Description Value Unit Range Abnormal Flag Note LastModifiedBy Organization Detail LastModifiedTime 04/11/20 24 04/11/2024 CT, abdom en + pelvi s, w/o contr ast No observ ation record ed. rtry [facility] [address], [address], 04/11/2024 15:38:46 04/26/20 24 04/26/2024 XR, kidne y + urete r + bladd er No observ ation record ed. [facility] (Medical Records) [address] [place], [address], 04/26/2024 12:15:58 07/07/20 24 07/06/2024 CT, abdom en + pelvi s, w/o contr ast No observ ation record ed. [facility] (Medical Records) [address] [place], [address], 07/08/2024 09:07:14 08/22/19 25 08/22/2024 CT, abdom en + pelvi s, w/o contr ast No observ ation record ed. [email or web address] [facility] [address] [address], [place], [address], 08/22/2024 10:26:29 09/09/19 25 09/09/2024 CT, abdom en + pelvi s, w/o contr ast No observ ation record ed. [facility] (Medical Records) [address] [facility], [place], [address], 09/09/2024 09:48:57 Result Notes None recorded. Problems Name Problem SNOMED Code Status Onset Date Resolution Date Notes Provider Name and Address Organization Details Recorded Time Ulcerative colitis 80294059 Active 2017 Not Available [facility] 3 09:54:27 History of depression 929393905 Active 2017 Not Available [facility] 3 09:54:27 Acid reflux 487114800 Active 2017 Not Available [facility] 3 09:54:27 Anxiety 96095222 Active 2017 Not Available [facility] 3 09:54:27 Varicella 86897992 Active 2017 Not Available [facility] 3 09:54:27 Anemia 931059999 Active 2017 2/2 UC Not Available [facility] 3 09:54:27 Migraine 97590280 Active 2017 Not Available [facility] 3 09:54:27 Hemorrhoid s 55113943 Active 2017 Not Available [facility] 3 09:54:27 Lyme disease 49312286 Active 2017 Not Available [facility] 3 09:54:27 Panic attack 463421123 Active 2021 Not Available [facility] 3 09:54:27 Adult attention deficit hyperactiv ity disorder 412544025 Active 2022 Not Available [facility] 3 09:54:27 Crohn's disease 91805676 Active 2022 Not Available [facility] 3 09:54:27 Sleep apnea 25493929 Active 2022 MARIAELENA HALL [address] [place], [address], [facility] 3 13:51:36 Muscle pain 74592642 Active 2023 MRAIAELENA HALL [address] [place], [address], [facility] 4 14:25:03 Melanocyti c nevus of skin 601238010 Active 2023 MARIAELENA HALL [address] [place] [address], [address], [facility] 4 14:29:10 Colitis 14902064 Active 2023 MARIAELENA HALL [address] [place] [address], [address], [facility] 4 14:31:39 External hemorrhoid s 00016521 Active 2023 MARIAELENA HALL [address] [place] [address], [address], [facility] 4 14:32:42 Impaired fasting glycemia 439554913 Active 2023 MARIAELENA HALL [address] [place] [address], [address], [facility] 4 14:35:57 Depressive disorder 22570466 Active 2023 MARIAELENA HALL [address] [place] [address], [address], [facility] 4 10:24:16 Kidney stone 78541919 Active 2023 MARIAELENA HALL [address] [place] [address], [address], [facility] 4 15:39:37 Problem Notes None recorded. Procedures Surgical History Date Name Laterality Status Provider Name and Address Organization Details Recorded Time 9 Colonoscopy completed Betzy Polo [facility] 09/10/2018 08:45:52 5 Colonoscopy completed Betzyshanita Polo [facility] 03/16/2018 16:35:24 Imaging Results Imaging Date Name Status LastModified by [facility] Details LastModified Time 04/11/2024 CT, abdomen + pelvis, w/o contrast completed [email or web address] [facility] [address] [facility] [address] [place] [address], [address], 04/11/2024 15:38:46 04/26/2024 XR, kidney + ureter + bladder completed [facility] (Medical Records) [address] [place], [address], 04/26/2024 12:15:58 07/06/2024 CT, abdomen + pelvis, w/o contrast [facility] [address] [place], [address], 07/08/2024 09:07:14 08/22/2024 CT, abdomen + pelvis, w/o contrast completed rtry [facility] [address], [address], 08/22/2024 10:26:29 09/09/2024 CT, abdomen + pelvis, w/o contrast completed [facility] (Medical Records) [address] [place], [address], 09/09/2024 09:48:57 Procedure Notes None recorded. Medical Equipment None Reported. Allergies Allergen ID Allergen Name Allergen Category Reaction Reaction Severity Criticality Documentation Date Start Date Code Code System Note Provider Name and Address Organization Details Recorded Time 2153 Substance with sulfonami de structure and antibacte rial mechanism of action (substanc e) medicatio n rash Not available Not available 03/17/2018 98712 8003 SNOMED Betzy bo [facility] 8 11:01:18 6307 Wellbutri n medicatio n other Not available Not available 08/19/2022 87461 RxNorm shake s, chill s, body aches MARIAELENA HALL [address] [place], [address], [facility] 3 09:17:51 Medications Name Sig [...] Available Not Available oxycodone 5 mg tablet Take 1 tablet 4 times a day by oral route as needed for 10 days. 2024 active Not Available Not Available Not Avai lable acetaminoph en prn active Not Available Not [...] Available Not Available Not Available Flucelvax Quad 4356-6111 (PF) 60 mcg (15 mcg x 4)/0.5 mL IM syringe 06/11 completed Not Available Not Available Not Available Fluarix Quad 3944-5015 (PF) 60 mcg (15 mcg x 4)/0.5 [...] Updated DateTime 4 168.91 cm 34.2 kg/m2 52743.7 2 g 79 /min 98 % 98 % 112 mm[Hg] 78 mm[Hg] Ora Turner [facility] 4 11:21:40 Date Recorded Body height Body mass index (BMI) Body weight Heart rate Oxygen saturation Oxygen saturation in Arterial blood by Pulse oximetry Systolic blood pressure Diastolic blood pressure Provider Name and Address Organization Details Last Updated DateTime 4 168.91 cm 33.5 kg/m2 07581.2 7 g 79 /min 99 % 99 % 118 mm[Hg] 82 mm[Hg] Ora Turner [facility] 4 11:20:32 Date Recorded Body height Body mass index (BMI) Body weight Heart rate Oxygen saturation Oxygen saturation in Arterial blood by Pulse oximetry Systolic blood pressure Diastolic blood pressure Provider Name and Address Organization Details Last Updated DateTime 4 168.91 cm 32.7 kg/m2 99774.5 9 g 73 /min 98 % 98 % 138 mm[Hg] 88 mm[Hg] Ora Turner [facility] 4 13:27:36 Social History Question Answer Notes LastModified by Organizat ion Details LastModified Time Tobacco Smoking Status Current Every Day Smoker Ora Turner [facility] 03/28/2024 11:19:40 Do You Or Have You [...] Many Years Have You Smoked Tobacco? 9 [id number] Information not available 06/05/2020 Do You Or [...] History Condition Response Coronary Artery Disease N Gout N Other N Kidney Stones N Blood Diseases N Blood Transfusion N Breast Cancer N Lung Disease N Depression N COPD [...] 50 mcg/0.25mL dose 1 completed Not Available [facility] 04/10/2023 15:04:48 COVID-19, mRNA, LNP-S, PF, 100 mcg/0.5mL dose or 50 mcg/0.25mL dose 1 completed Not Available [facility] 04/10/2023 15:04:48 Influenza, split virus, quadrivalent, preservative 2 completed Not Available [facility] 04/10/2023 15:04:48 COVID-19, mRNA, LNP-S, PF, 100 mcg/0.5mL dose or 50 mcg/0.25mL dose 2 completed Not Available [facility] 04/10/2023 15:04:48 COVID-19, mRNA, LNP-S, PF, 50 mcg/0.5 mL dose 1 completed Not Available [facility] 04/10/2023 15:04:48 COVID-19, mRNA, LNP-S, PF, 50 mcg/0.5 mL dose 2 completed Not Available [facility] 04/10/2023 15:04:48 Tdap 1 completed Not Available [facility] 04/10/2023 15:04:48 SARS-COV-2 (COVID-19) vaccine, UNSPECIFIED 3 completed Not Available [facility] 04/10/2023 15:04:48 influenza, unspecified formulation 3 completed Not Available [facility] 04/10/2023 15:04:48 Influenza, split virus, quadrivalent, preservative 9 completed Not Available [facility] 04/10/2023 15:04:48 Past Encounters Encounter ID Performer Location Encounter Start Date Encounter Closed Date Diagnosis/Indication Diagnosis SNOMED-CT Code Diagnosis ICD10 Code Diagnosis Note [id number] [facility] [address] [facility],[place] [address] 03/17/2018 10:50:16 03/17/2018 13:26:26 Adult health examination 124963836 Z00.01 Active or passive immunization 086330228 Z23 Strain of muscle of left shoulder 8012756891 5261319 S46.912A rest, heat, and stretching if fails will order PT Microscopic hematuria 19 2711848 R31.21 Body mass index 25-29 - overweight 604814270 Z68.28 discussed diet and healthy lifestyle [id number] Lilia Dunlap NP, [facility] [address] [facility],[place] [address] 06/11/2018 10:55:36 06/11/2018 12:52:57 Acute sinusitis 16675118 J01.90 Ulcerative colitis 28691 004 K51.90 [id number] Jessica Lisbet [facility] [address] [facility], [place] [address] 03/29/2019 09:23:38 03/29/2019 10:05:16 Auditory processing disorder 241139935 H93.25 with speech delay will have lamont selby and consult for treatment Ulcerative colitis 68983 004 K51.90 Adult [facility] th examination 822364109 Z00.01 Active or passive immunization 048692844 Z23 tdap not covered by insurance Body mass index 25-29 - overweight 668898411 Z68.28 discussed diet and healthy lifestyle [id number] [facility] [address] [facility], [place] [address] 04/08/2019 11:33:04 04/08/2019 12:23:46 Fever 619921848 R50.9 ? early atypical pna Acute chest pain 5897500 01 R07.9 dxd as pericardit is clinically , no imaging support will check sed and crp ekg was negative as was cxr, will consider repeat cxr ? atypical pna Tick bite without infection 517798453 W57.XXXA Leukocytosis 967266065 D 72.829 present prior to prednisone will complete pred in 2 days will need to continue to monitor [id number] Jessica Frausto [facility] [address] [facility], [place] [address] 04/12/2019 15:39:45 04/12/2019 16:31:06 Hemoptysis 79076665 R04.2 Cough 97636406 R05 possible pna undetected by cxr? Fever 400092757 R50.9 ? early atypical pna C-reactive protein outside reference range 169864725 R79.82 Microscopic hematuria 19 6278245 R31.21 Leukocytosis 059610278 D 72.829 present prior to prednisone slightly elevated compared to ER labs, but he just finished pred on thursday [id number] MARIAELENA HALL [facility] [address] [facility] [address], [place] [address] 04/02/2020 13:18:35 04/02/2020 14:31:10 Adult health examination 554655678 Z00.00 no concerns today doing well just had BW thru GI which looked good Active or passive immunization 449231741 Z23 will get the flu shot later sept will skip the TDAP [id number] MARIAELENA HALL [facility] [address] [facility] [address],[place] [address] 04/03/2021 08:52:49 04/09/2021 09:52:44 Active or passive immunization 991076057 Z23 will get the flu shot later sept will skip the TDAP Adult heal th examination 820828021 Z00.00 no concerns today doing well Fatigue 95220957 R53.83 stable Attention deficit hyperactivity disorder, predominantly inattentive type 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 F90.0 [place] [id number] MARIAELENA HALL [facility] [address] [facility] [address] 04/08/2022 09:05:12 04/08/2022 09:58:44 Anxiety 52575100 F41.1 will start on higher dose of sertraline 50 mg and will adding Panic attack 688085252 F 41.0 will fu in two week [id number] MARIAELENA HALL [facility] [address] [facility],[place] [address] 04/22/2022 09:52:02 04/22/2022 15:41:08 Anxiety 54826235 F41.1 stable History of depression 16 2122825 Z86.59 stable Ulcerative colitis 63006 004 K51.90 stable [id number] MARIAELENA HALL [facility] [address] [facility] [address],[place] [address] 06/03/2022 10:27:48 06/03/2022 13:38:29 Adult health examination 380258108 Z00.00 no concerns today doing well Ulcerative colitis 78696 004 K51.90 improving [id number] MARIAELENA HALL [facility] [address] [facility] [address] [address] 08/19/2022 08:58:27 08/19/2022 09:44:49 Adult attention deficit hyperactivity disorder 167781987 F90.2 will restart the 5 mg and fu with patient [id number] MARIAELENA HALL [facility] [address] [facility] [address],[place] [address] 06/09/2023 13:29:09 06/09/2023 16:03:30 Adult attention deficit hyperactivity disorder 977061914 F90.2 will restart the 5 mg and fu with patient Ulcerative colitis 26806 004 K51.90 improving Sleep apnea 53368839 G47 .33 doing really good with the CPAP [id number] MARIAELENA HALL [facility] [address] [facility],[place] [address] 11/23/2023 14:06:12 11/23/2023 16:44:24 History of depression 366215790 Z86.59 stable Crohn's disease 49533635 K50.00 stable Muscle pain 27155184 M79 .18 agreed to tramadol PRN for muscle as he comes off the prednisone Adult atte ntion deficit hyperactivity disorder 441099938 F90.2 will restart the 5 mg and fu with patient Melanocyti c nevus of skin 530476724 D22.5 agreed to derm referral Colitis 42211756 K51.90 stable currently External hemorrhoids 239 34157 K64.4 will try higher dosed steriod Impaired f asting glycemia 702493600 R73.01 agreed to check his sugar levels given exterminator use of steriods Long-term current use of immunosuppressive drug 872016261 Z79.60 will set up with bone density due to exterminator use of prednisone over 2 years [id number] MARIAELENA HALL [facility] [address] [facility] [address],[place] [address] 03/08/2024 13:38:12 03/08/2024 14:56:02 Panic attack 088251530 F41.0 will start on adjusted dose of the ativan and start on hydroxyzin e as well for the severe panic he is experienci ng Anxiety 04613660 F41.1 fu next week [id number] MARIAELENA HALL [facility] [address] [facility],[place] [address] 03/14/2024 10:03:13 03/14/2024 11:20:12 Depression screening 822445961 Z13.31 continue plan as prescribed Depressive disorder 3548 9007 F32.1 doing bettercont inue current medication regimine [id number] MARIAELENA HALL [facility] [address] [facility] [address],[place] [address] 03/28/2024 11:04:23 03/28/2024 11:55:43 Crohn's disease 68991109 K50.00 stable Depressive disorder 3548 9007 F32.1 doing bettercont inue current medication regimine Panic attack 853613368 F 41.0 will start on adjusted dose of the ativan and start on hydroxyzin e as well for the severe panic he is experienci ng Anxiety 42683256 F41.1 fu next week [id number] MARIAELENA HALL [facility] [address] [facility] [address],[place] [address] 04/05/2024 10:54:58 04/05/2024 12:17:29 Panic attack 054548579 F41.0 improving Anxiety 31784596 F41.1 needs refill Depressive disorder 3548 9007 F32.1 more tempered mood, much more stable [id number] [facility] [address] [facility] [address],[place] [address] 04/08/2024 09:21:10 04/08/2024 13:56:13 History of calculus of kidney 176288582 Z87.442 will set up with STAT CT [id number] MARIAELENA HALL [facility] [address] [facility] [address],[place] [address] 04/29/2024 09:08:15 04/29/2024 11:30:20 Adult attention deficit hyperactivity disorder 252414953 F90.2 stable Anxiety 41868667 F41.1 stable Crohn's disease 17275728 K50.00 stable Kidney stone 76157153 N2 0.[address] order from urology [id number] MARIAELENA HALL [facility] [address] [facility] [address],[place] [address] 06/17/2024 13:23:18 06/17/2024 13:56:50 Active or passive immunization 746802906 Z23 will get the flu shot later sept will skip the TDAP Adult heal th examination 700374601 Z00.00 no concerns today doing well Health Concerns Section Related Observation LastModified by Organization Detai ls LastModified Time None Recorded Concern Status LastModified by Organization Details LastModified Time None Recorded Advance Directives Directive None Recorded Payers Encounter Date Sequence Insurance Name Policy Number Policy Scott Covered Member ID Scott Member ID Guarantor Name 03/28/2024 1 [facility] [id number] Slick H Benny [id number] Slick H Benny 04/05/2024 1 [facility] [employer] (HMO) [id number] Slick H Benny [id number] Slick H Benny 04/08/2024 1 [facility] [employer] (HMO[facility] [id number] Slick H Benny [id number] Slick H Benny 04/29/2024 1 [facility] [employer] (HMO) [id number] Slick H Benny [id number] Slick H Benny 06/17/2024 1 [facility] [employer] (HMO) [id number] Slick H Benny [id number] Slick H Benny Notes Date Note Type Note Provider Name a wa Address Organization Details Recorded Time 4 text/html [...] before I leave on vacation MARIAELENA HALL [address] [place] [address], [place], [address], [facility] 03/28/2024 11:55:05 4 text/html 1 [...] to talk to her MARIAELENA HALL [address] [place], [address], [facility] 04/05/2024 11:44:24 4 text/html c/o [...] instructions for fluid intake MARIAELENA HALL [address] [place], [address], [facility] 04/08/2024 10:27:31 4 text/html 3 week f/u [...] well for the patient MARIAELENA HALL [address] [place], [address], [facility] 04/29/2024 11:24:02 4 text/html Annual [...] therapist with [facility] MARIAELENA HALL [address] [facility], [place], [address], [facility] 06/17/2024 13:54:53
--- NOTE | 2024-09-13 12:32 | P.OP_ITS ---
Operative Note Operative Note Date of Service: 09/13/24 Narrative: PreOperative Diagnosis:?? Right ureteral stone Post Operative Diagnosis:?? right ureteral stone Procedure: - Cystoscopy, right retrograde, right ureteroscopy laser lithotripsy stent insertion, 6 [place] by 22-32 cm Surgeon:?Dr Neto Keane Anesthesia:? General Procedure: After informed consent was verified the patient was brought to the operating placed on the OR table in supine position.? General Anesthesia was administered per protocol.? The patient was placed in lithotomy position, prepped and draped in the usual sterile fashion.? Safety pause time-out and side of surgery confirmed.? Antibiotics confirmed. 2% lidocaine jelly 10 mL was passed transurethrally. A 22 [place] cystoscope was inserted transurethrally, the bulbous urethra was within normal limits. The prostatic urethra was nonobstructive. The bladder was visualized.? Both ureteric orifices were in normal position. An open-ended ureteral catheter was passed into the right ureteral orifice and a retrograde examination was performed. There was a filling defect in the mid ureter and dilatation of the proximal ureter and renal pelvis and calices. A guidewire was passed through the ureteral catheter into the kidney. The balloon dilator size 15 fr x 4 cm was passed over the guide-wire the balloon was inflated to 8 mmHg and the intramural ureter was dilated for 30 seconds. The balloon was deflated and removed. After removing the balloon dilator a 2nd guidewire was then passed into the kidney to use as a safety. The cystoscope was removed, leaving both guidewires in place. One guidewire was used as the safety and was attached to the draping. The semi rigid ureteroscope was passed over one of the guidewires to the level of the stone in the ureter. One guidewire was then removed. Laser lithotripsy of the stone was done using the 365 fiber with pulsating setting 0.8 J x 5 H and There was good fragmentation of the stone. The 0 degree basket was passed through the ureteroscope, stone fragment(s) removed and sent for analysis. The ureteroscope was removed. The cystoscope was passed over the safety guidewire. A? 6 [place] by 22-32 cm stent was placed into the ureter and renal pelvis under a combination of fluoroscopy and direct visualization. The bladder was emptied.? The rigid cystoscope was removed. ? The patient tolerated the procedure well and was brought to the recovery room in stable condition. Complications: None Drains: Ureteral stent as dictated above
[2024-09-13] MEDS: Phenazopyridine HCL 200 MG TABLET PO (12:43)
[2024-09-19 20:04] LABS: Stone Source RIGHT URETERAL STONE
== END 2024-09-13 13:34 | disposition home or self-care (01) ==
PROVIDERS: PCP Physician Assistant; Visit Provider Urology
PROC: (CPT 52356; principal; 2024-09-13 11:00)
DX: N13.2 Hydronephrosis with renal and ureteral calculous obstruction (principal); Z87.442 Personal history of urinary calculi; K51.90 Ulcerative colitis, unspecified, without complications; R73.01 Impaired fasting glucose; D64.9 Anemia, unspecified; K21.9 Gastro-esophageal reflux disease without esophagitis; G47.30 Sleep apnea, unspecified; F32.A Depression, unspecified; K64.8 Other hemorrhoids; Z79.1 Long term (current) use of non-steroidal anti-inflammatories (NSAID); Z79.620 Long term (current) use of immunosuppressive biologic; Z79.899 Other long term (current) drug therapy; Z88.2 Allergy status to sulfonamides; F17.290 Nicotine dependence, other tobacco product, uncomplicated
CPT/HCPCS: 52356; 82365; 88300; C1726; C1758; C1769; C2617; J0131; J0690; J1100; J1940; J2003; J2250; J2405; J2704; J3010; Q9967

== ENCOUNTER → 2024-09-13 09:30 | Outpatient (BNV) | payer OTHER, SELFPAY | PROVIDERS: PCP Physician Assistant; Visit Provider Urology | DX: N20.1 Calculus of ureter (principal) | CPT/HCPCS: 52356; 74420 ==

== ENCOUNTER 2024-09-22 07:54 | Outpatient (AMB) | payer OTHER, SELFPAY ==
--- NOTE | 2024-09-22 08:19 | MHC.OFFVIS ---
Intake Visit Reasons: Stent removal Intake Note: Patient is Present for Cystoscopy/Stent Removal Urology Med: Vesicare Antibiotic Allergy: Sulfa Blood Thinner: None Patient is currently still on vesicare, patient reports that it has helped with bladder spasms URO- G Disposable Cystoscope lot: [id number] exp:12/09/2026 Physician Vice President Required: No Merchandise Collector: Merchandise Collector Present Accompanied by: Spouse Allergies Sulfa (Sulfonamide Antibiotics) Allergy (Verified 09/22/24 08:41) Unknown Medication List - Last Reconciled 09/22/24 by Neto Keane MD dextroamphetamine-amphetamine 5 mg 1 tab PO BID hydrocortisone 2.5% topical DAILY lorazepam 1 mg PO BID sertraline 50 mg PO DAILY ustekinumab (Stelara) 90 mg subcut Q8W HPI Comments Details: 09/22/2024--is post cystoscopy right ureteroscopy laser lithotripsy 09/13/2024 of right ureteral stone. Right ureteral stent removed today without difficulty. Discussed metabolic workup. Left kidney 3 mm renal stone and we will continue to monitor. 24 hr urine. 09/12/24--Slick is a very pleasant 38-year-old male patient of Dr. Clarke. He has a past medical history of ulcerative colitis, depression, sleep apnea, Crohn's disease, hemorrhoids, migraines, anemia, acid reflux, and anxiety. He presents to the office today for follow-up of his nephrolithiasis. Of note, patient underwent right-sided ESWL with Dr. Polanco 07/20/2024. Of note, patient was seen approximately 2 weeks ago at which time a CT KUB was ordered for further assessment evaluation as patient had been reporting continued right-sided flank pain. These results were reviewed with the patient today. Mild right hydronephrosis and proximal hydroureter secondary to 8 mm obstructing calculus just distal to the right UPJ. 3 mm nonobstructing calculus inferior left kidney. Kidneys otherwise normal. He continues to report right-sided flank pain that radiates to right-sided lower abdomen area. We discussed further treatment options and risks and benefits of these treatment options. He otherwise denies any bothersome urinary issues. He denies urinary urgency, urinary frequency, incontinence, nocturia, hematuria, dysuria, foul smelling urine, changes to urinary stream, fever, and or chills. He is happy with his current voiding parameters. We discussed right-sided ureteroscopy. All questions were answered. He otherwise offers no other issues or concerns at this time. [facility] Medical History Kidney stone Depressive disorder Colitis Melanocytic nevus Muscle pain Sleep apnea Adult attention deficit hyperactivity disorder Lyme disease Hemorrhoids Migraine Anemia Varicella History of depression Ulcerative colitis Surgical History History of colonoscopy Social History Are you a primary geriatric personal care aide to a significant other at home: No Do you presently have visiting nurse or other home services: No Patient Tobacco Use Status: Current everyday Tobacco user Tobacco use type: Smokeless Tobacco Second Hand Smoke Exposure: No Review of Systems Const All systems reviewed & are unremarkable except as noted in HPI and below Reports no additional complaints Eyes Reports no additional complaints ENT Reports no additional complaints Card Reports no additional complaints Resp Reports no additional complaints GI Reports no additional complaints Reports as per HPI Musc Reports no additional complaints Skin/Breast Reports system reviewed and no additional complaints, except as documented Neuro Reports no additional complaints Psych Reports no additional complaints Endo Reports no additional complaints Andrew/Lymph Reports no additional complaints Aller/Immun Reports no additional complaints Office Procedures Cystoscopy Consent Discussed risk and benefit or proposed procedure with the patient. Information consent for procedure given to the patient. Discussed technical aspects, risks, benefits and alternatives in full. Addressed all of the patient's questions and concerns regarding the procedure. The patient demonstrated knowledge and understanding. They wish to proceed with this procedure. Preparation The patient was prepped in the usual manner. A framing consultant was present and in the room. Genitalia was prepped with betadine solution in a sterile manner. Lidocaine Jelly 2% was placed into the urethra and 16Fr flexible Olympus cystoscope was inserted into the meatus after adequate lubrication. Procedure Time out per protocol performed. Bladder Inspection Cystoscopy findings: mild edema ureteral orifice which is expected, distal end of ureteral stent visualized. The grasping forceps were used and the stent was removed without difficulty. [id number] with stent removal DISPOSABLE SCOPE URO-G FLEXIBLE SCOPE Procedure code (CPT) selection complete Office Meds lidocaine HCl 2 % mucosal jelly in applicator Performing Provider: Neto Keane MD Performing Location: [facility] [place] [facility] Administered by: Simón Corrales LPN on 09/22/24 08:57 Dose Route Admin Location Dispensed Lot Number Expiration Date NDC Marketing Development Representative 10 mL intra-urethral 10 mL 10 mL intra-urethral 10 mL naproxen 500 mg tablet Performing Provider: Neto Keane MD Performing Location: [facility] [place] [facility] Administered by: Simón Corrales LPN on 09/22/24 08:57 Dose Route Admin Location Dispensed Lot Number Expiration Date NDC Marketing Development Representative 500 mg PO 1 tab ciprofloxacin HCl 500 mg tablet Performing Provider: Neto Keane MD Performing Location: [facility] [place] [facility] Administered by: Simón Corrales LPN on 09/22/24 08:57 Dose Route Admin Location Dispensed Lot Number Expiration Date NDC [employer] Representative 500 mg PO 1 tab Results AMB Urinalysis, Automated UA Leukoctes 70 Araseli/uL Last Edit by INDIA Booker on 09/22/24 08:55 UA Nitrite Negative Last Edit by Abigail Russo [facility] on 09/22/24 08:55 UA Urobilinogen 0.2 mg/dL Last Edit by Abigail Russo [facility] on 09/22/24 08:55 UA Protein 15 mg/dL Last Edit by Abigail Russo [facility] on 09/22/24 08:55 UA pH 7.5 Last Edit by Abigail Russo [facility] on 09/22/24 08:55 UA Blood 200 Wilian/uL Last Edit by Abigail Russo [facility] on 09/22/24 08:55 UA Specific [place]ra 1.015 Last Edit by Abigail Russo [facility] on 09/22/24 08:55 UA Ketone Negative Last Edit by Abigail Russo Vanessa on 09/22/24 08:55 UA Bilirubin 0 mg/dL Last Edit by Abigail Russo A on 09/22/24 08:55 UA Glucose 0 mg/dL Last Edit by Abigail Russo [facility] on 09/22/24 08:55 Results Reviewed Results Reviewed: Laboratory Last Values Urine pH (Auto) 7.5 09/22/24 08:51 Specific Agra (Auto) 1.015 09/22/24 08:51 Urine Protein (Auto) 15 mg/dL 09/22/24 08:51 Glucose (UA)(Auto) 0 mg/dL 09/22/24 08:51 Urine Ketones (Auto) Negative 09/22/24 08:51 Urine Blood (Auto) 200 Wilian/uL 09/22/24 08:51 Urine Nitrite (Auto) Negative 09/22/24 08:51 Urine Bilirubin (Auto) 0 mg/dL 09/22/24 08:51 Urine Urobilinogen (Auto) 0.2 mg/dL 09/22/24 08:51 Leukocyte Esterase (Auto) 70 Araseli/uL 09/22/24 08:51 Date of Service: 09/09/24 CT ABDOMEN AND PELVIS WITHOUT CONTRAST FINDINGS: LUNG BASES: The visualized lung bases are normal. Heart size is normal. No effusions. Normal GE junction. LIVER, GALLBLADDER, AND BILIARY TREE: There is hepatomegaly with diffuse fatty infiltration. There is no suspicious focal hepatic lesion. Mild fatty sparing abutting the gallbladder fossa. No intrahepatic biliary dilatation. The gallbladder is unremarkable with no evidence of radiopaque gallstones, gallbladder wall thickening, or obvious pericholecystic inflammatory changes. PANCREAS: Unremarkable. SPLEEN: Unremarkable. ADRENAL GLANDS: Unremarkable. KIDNEYS AND URETERS: Mild right perirenal stranding and fullness of the right renal collecting system and proximal ureter. Obstructing calculus is present just distal to the right UPJ, measuring 8 x 4 mm. No renal masses. Normal cortical thickness. Left kidney demonstrates a 3 mm nonobstructing calculus in the lower pole region. Left kidney is otherwise normal. Left ureter is normal. BLADDER: Unremarkable. GASTROINTESTINAL TRACT: The small and large bowel are unremarkable. The appendix is unremarkable. ABDOMINAL WALL: Tiny fat-containing left inguinal hernia. Tiny fat-containing umbilical hernia. LYMPH NODES: Normal. VASCULAR: Unremarkable. PELVIC VISCERA: The prostate and seminal vesicles are unremarkable. OSSEOUS STRUCTURES: No suspicious lytic or blastic bone lesion. IMPRESSION: 1. Mild right hydronephrosis and proximal hydroureter secondary to an obstructing 8 x 4 mm calculus just distal to the right UPJ. 2. 3 mm nonobstructing calculus inferior left kidney. Kidneys otherwise normal. 3. Diffuse fatty infiltration and mild enlargement of the liver. No suspicious lesion. Assessment & Plan Assessment & Plan (1) Flank pain: Code(s): R10.9 - Unspecified abdominal pain Category: Medical (2) Hydronephrosis: Code(s): N13.30 - Unspecified hydronephrosis Category: Medical (3) Kidney stone: Code(s): N20.0 - Calculus of kidney Category: Medical Plan Status post ureteroscopy ureteral stone stone and stent 09/13/24-- Right ureteral stent removed today without difficulty. Discussed metabolic workup. Left kidney 3 mm renal stone and we will continue to monitor. 24 hr urine Orders: Orders AMB Urinalysis Automated Today Z13.9 - Encounter for screening, unspecified AMB Cystoscopy Today N20.0 - Calculus of kidney Medications: Discontinued solifenacin (Vesicare) Discontinued Reason: No Longer Medically Relevant 5 mg PO DAILY 20 tabs 0RF Patient Instructions: The patient had an opportunity to ask questions regarding treatment plan. The patient expressed understanding and agreement with the above treatment plan. The patient is aware they should contact our office by phone for worsening of their current condition or the appearance of new symptoms. Compliance is encouraged with any medications and followup testing that is ordered. It is a privilege to be allowed the opportunity to participate in the urologic care of your patient. If you have any questions or concerns regarding treatment for the above conditions please do not hesitate to contact me. The office telephone contact is [phone]. This note is constructed in part using voice recognition software. While every effort has been made to ensure accuracy assortment planner errors may have been included. Yours sincerely, Neto Keane MD Coding Level of Care Code Procedure Only Diagnoses Flank pain R10.9 Hydronephrosis N13.30 Kidney stone N20.0 CPT Codes Cystoscopy - CPT: 95036-[id number] with stent removal ([id number])
== END 2024-09-22 09:41 | disposition home or self-care (01) ==
PROVIDERS: PCP Physician Assistant; Visit Provider Urology
DX: N20.0 Calculus of kidney (principal); N13.30 Unspecified hydronephrosis; Z96.0 Presence of urogenital implants; Z13.9 Encounter for screening, unspecified
CPT/HCPCS: 52310

== ENCOUNTER → 2024-09-22 07:54 | Outpatient (BNVA) | payer OTHER, SELFPAY | PROVIDERS: PCP Physician Assistant; Visit Provider Urology | DX: R10.9 Unspecified abdominal pain (principal); N13.30 Unspecified hydronephrosis; N20.0 Calculus of kidney | CPT/HCPCS: 52310; 81003 ==

== ENCOUNTER 2024-12-14 07:25 | Outpatient (REF) | payer OTHER, SELFPAY ==
--- OUTSIDE RECORDS SUMMARY | 2024-12-14 07:29 | XMS_ITS | Data Portability ---
Author Organization [facility] Home Service Address [address] [place] [address] Assessment Encounter Date Assessment Date Assessment LastModified by Organization Details LastModified Time 04/08/2024 04/08/2024 Patient agreed and verbally consents to this audio and video Telehealth appt via a secure platform [email or web address] Not available 04/08/2024 10:23:33 04/29/2024 04/29/2024 Patient agreed and verbally consents to this audio and video Telehealth appt via a secure platform [email or web address] Not available 04/29/2024 11:23:49 12/05/2024 12/05/2024 Patient presented for medication refill. Patient tolerating medication well at current dose without adverse effects. Refilled as below. Discussed plan with patient, who expressed understanding . Follow up as noted below. [email or web address] Not available 12/05/2024 11:28:14 Plan of Treatment Reminders Order Date Submit Date Provider Last Modified By Organization Details Last Modified Time Details Appointments FOLLOW UP 15 2024 11:45A M MARIAELENA HALL Not available Not available Not available ANNUAL EXAM 2024 03:30P M MARIAELENA HALL Not available Not available Not available Lab urinalysi s complete, reflex culture 2023 024 [facility], [address] [place] [address], [place], [address], 04/12/2024 11:18:54 Referral None recorded. Procedures None recorded. Surgeries None recorded. Imaging CT, abdomen + pelvis, w/o contrast - r/o kidney stone 2023 024 [email or web address] [facility] [place], [address] [facility], [place], [address], 04/11/2024 10:12:38 Medication Orders tamsulosi n 0.4 mg capsule 2023 024 [facility]acy #[id number], [address] [place], [address], 12/05/2024 11:31:25 oxycodone 5 mg tablet 2023 024 [facility]/Ph[facility]acy #[id number], [address] [place], [address], 12/05/2024 11:27:29 lorazepam 1 mg tablet 2023 024 [facility]/Pharmacy #5, [address] [place], [address], 04/05/2024 11:40:50 Patient TargetsNo targets recorded. Patient InstructionsNo instructions recorded. Reason for Referral None Reported. Results Created Date Observation Date Name Description Value Unit Range Abnormal Flag Note LastModifiedBy Organization Detail LastModifiedTime 04/11/2004/11/2024 CT, abdom en + pelvi s, w/o contr ast No observ ation record ed. [facility] [place] [address] [address], [place], [address], 04/11/2024 15:38:46 04/26/20 24 04/26/2024 XR, kidne y + urete r + bladd er No observ ation record ed. [facility] (Medical Records) [address] [place], [address], 04/26/2024 12:15:58 07/07/20 24 07/06/2024 CT, abdom en + pelvi s, w/o contr ast No observ ation record ed. [facility] (Medical Records) [address] [place], [address], 07/08/2024 09:07:14 08/22/19 25 08/22/2024 CT, abdom en + pelvi s, w/o contr ast No observ ation record ed. [facility] [place] [address], [place], [address], 08/22/2024 10:26:29 09/09/19 25 09/09/2024 CT, abdom en + pelvi s, w/o contr ast No observ ation record ed. [email or web address] [facility] (Medical Records) [address] [place], [address], 09/09/2024 09:48:57 09/13/19 25 09/13/2024 fluor oscop y (PROC ) No observ ation record ed. [email or web address] [facility] (Medical Records) [address] [place], [address], 09/13/2024 15:48:37 Result Notes None recorded. Problems Name Problem SNOMED Code Status Onset Date Resolution Date Notes Provider Name and Address Organization Details Recorded Time Ulcerative colitis 73262561 Active 2017 Not Available [facility] 3 09:54:27 History of depression 243168181 Active 2017 Not Available [facility] 3 09:54:27 Acid reflux 226757968 Active 2017 Not Available [facility] 3 09:54:27 Anxiety 66268586 Active 2017 Not Available [facility] 3 09:54:27 Varicella 13531904 Active 2017 Not Available [facility] 3 09:54:27 Anemia 935622163 Active 2017 2/2 UC Not Available [facility] 3 09:54:27 Migraine 19847276 Active 2017 Not Available [facility] 3 09:54:27 Hemorrhoid s 15666063 Active 2017 Not Available [facility] 3 09:54:27 Lyme disease 23114302 Active 2017 Not Available [facility] 3 09:54:27 Panic attack 149825312 Active 2021 Not Available [facility] 3 09:54:27 Adult attention deficit hyperactiv ity disorder 098159767 Active 2022 Not Available [facility] 3 09:54:27 Crohn's disease 82259131 Active 2022 Not Available [facility] 3 09:54:27 Sleep apnea 26928485 Active 2022 MARIAELENA HALL [address] [place], [address], [facility] 3 13:51:36 Muscle pain 06993919 Active 2023 MARIAELENA HALL [address] [place] [address], [address], [facility] 4 14:25:03 Melanocyti c nevus of skin 739544828 Active 2023 MARIAELENA HALL [address] [place] [address], [address], [facility] 4 14:29:10 Colitis 03615916 Active 2023 MARIAELENA HALL [address] [place] [address], [address], [facility] 4 14:31:39 External hemorrhoid s 42649372 Active 2023 MARIAELENA HALL [address] [place] [address], [address], [facility] 4 14:32:42 Impaired fasting glycemia 104789066 Active 2023 MARIAELENA HALL [address] [place] [address], [address], [facility] 4 14:35:57 Depressive disorder 46675164 Active 2023 MARIAELENA HALL [address] [place] [address], [address], [facility] 4 10:24:16 Kidney stone 94181983 Active 2023 MARIAELENA HALL [address] [facility], [place], [address], [facility] 15:39:37 Problem Notes None recorded. Procedures Surgical History Date Name Laterality Status Provider Name and Address Organization Details Recorded Time 9 Colonoscopy completed [facility] 09/10/2018 08:45:52 5 Colonoscopy completed [facility] 03/16/2018 16:35:24 Imaging Results Imaging Date Name Status LastModified by Organiz ation Details LastModified Time 04/11/2024 CT, abdomen + pelvis, w/o contrast completed [facility] [address], [address], 04/11/2024 15:38:46 04/26/2024 XR, kidney + ureter + bladder completed [facility] (Medical Records) [address] [place] [address], [address], 04/26/2024 12:15:58 07/06/2024 CT, abdomen + pelvis, w/o contrast completed [facility] (Medical Records) [address] [place] [address], [address], 07/08/2024 09:07:14 08/22/2024 CT, abdomen + pelvis, w/o contrast completed [facility] [address], [address], 08/22/2024 10:26:29 09/09/2024 CT, abdomen + pelvis, w/o contrast completed [facility] (Medical Records) [address] [place], [address], 09/09/2024 09:48:57 09/13/2024 fluoroscopy (PROC) completed [email or web address] [place] [address] (Medical Records) [address] [place] [address], [address], 09/13/2024 15:48:37 Procedure Notes None recorded. Medical Equipment None Reported. Allergies Allergen ID Allergen Name Allergen Category Reaction Reaction Severity Criticality Documentation Date Start Date Code Code System Note Provider Name and Address Organization Details Recorded Time 2152 Substance with sulfonami de structure and antibacte rial mechanism of action (substanc e) medicatio n rash Not available Not available 03/17/2018 58665 8003 SNOMED Betzy Mleani bo, [facility] 8 11:01:18 6307 Wellbutri n medicatio n other Not available Not available 08/19/2022 02925 RxNorm shake s, chill s, body aches MARIAELENA HALL [address] [place] [address], [place], [address], [facility] 3 09:17:51 Medications Name Sig [...] AREA(S) BY TOPICAL ROUTE 2-4 TIMES DAILY 12/05 completed Not Available Not Available Not Available lorazepam 0.5 mg tablet TAKE 1 TABLET BY MOUTH TWICE A DAY NEEDED 05/09 completed Not Available Not Available Not Available tamsulosin 0.4 mg capsule TAKE 1 CAPSULE BY MOUTH EVERY DAY FOR 90 DAYS 12/05 completed Not Available Not Available Not Available lorazepam 2 mg tablet TAKE 1 [...] day by oral route for 15 days. 12/05 completed Not Available Not Available Not Available amoxicillin 500 mg-potassiu m clavulanate 125 mg tablet TAKE 1 TABLET BY MOUTH EVERY 8 HOURS,X1 DAYS 06/03 completed Not Available Not Available Not Available simethicone 80 mg chewable tablet CHEW AND SWALLOW 1 TABLET 3 TIMES DAILY 08/19 completed Not Available Not Available Not Available oxycodone 5 mg tablet TAKE 1 TABLET BY MOUTH EVERY 6 TO 8 HOURS NEEDED FOR PAIN. 12/05 completed Not Available Not Available Not Available Laxative (bisacodyl) 5 mg tablet,tone yed release TAKE 4 TABLETS ORALLY PATIENT HAS INSTRUCTI ONS 1 DAYS active Not Available Not Available No t Available solifenacin 5 mg tablet TAKE 1 TABLET BY MOUTH EVERY DAY 12/05 completed Not Available Not Available Not Available acetaminoph en prn active Not Available Not Available Not Available ibuprofen prn active Not Available Not Minnie ilable Not Available Remicade One infusion every 8 weeks 06/03 completed Not Available Not Available Not Available mesalamine ER 0.375 gram capsule,ext ended release 24 hr TAKE 4 CAPSULES BY MOUTH ONCE A DAY 08/19 completed Not Available Not Available Not Available GaviLyte-G 236 gram-22.74 gram-6.74 gram-5.86 gram oral solution TAKE 4000 ML BY MOUTH ACCORDING TO INSTRUCTI ONS GIVEN BY OFFICE active Not Available Not Available No t Available Stelara 90 mg/mL subcutaneou s syringe 90 MG SC EVERY 8 WEEKS active Not Available Not Available No t Available Entyvio 300 mg intravenous solution will be every 8 weeks 11/22 completed Not Available Not Available Not Available Flucelvax Quad 7637-3228 (PF) 60 mcg (15 mcg x 4)/0.5 [...] Updated DateTime 4 168.91 cm 33.5 kg/m2 53841.2 7 g 79 /min 99 % 99 % 118 mm[Hg] 82 mm[Hg] Ora Johnny [facility] 4 11:20:32 Date Recorded Body height Body mass index (BMI) Body weight Heart rate Oxygen saturation Oxygen saturation in Arterial blood by Pulse oximetry Systolic blood pressure Diastolic blood pressure Provider Name and Address Organization Details Last Updated DateTime 4 168.91 cm 32.7 kg/m2 68498.5 9 g 73 /min 98 % 98 % 138 mm[Hg] 88 mm[Hg] Ora Turner [facility] 4 13:27:36 Date Recorded Body height Body mass index (BMI) Body weight Heart rate Oxygen saturation Oxygen saturation in Arterial blood by Pulse oximetry Systolic blood pressure Diastolic blood pressure Provider Name and Address Organization Details Last Updated DateTime 5 168.91 cm 36.3 kg/m2 957239. 86 g 89 /min 96 % 96 % 134 mm[Hg] 86 mm[Hg] Ora Turner [facility] 5 11:11:18 Social History Question Answer Notes LastModified by [employer] Details LastModified Time Tobacco Smoking Status Current Every Day Smoker Ora Turner [facility] 03/28/2024 11:19:40 What Was The Date Of Your Most Recent Tobacco Screening? 12/05/2024 Information not available 12/05/2024 How Much Tobacco Do You Smoke? 0.5 PPD Information not available 03/28/2024 How Many Years Have You Smoked Tobacco? 9 [id number] Information not available 06/05/2020 Sex: Unknown Functional Status Question Answer Note LastModified by [employer] Details LastModified Time Do you or have you ever used any other forms of tobacco or nicotine? Yes Information not available 11/23/2023 Do you or have you ever used smokeless tobacco? Never used smokeless tobacco Information not available 11/23/2023 Do you or have you ever used e-cigarettes or vape? Current user of electronic cigarettes Information not available 11/23/2023 Mental Status None recorded. Family History Relationship Description Onset Age of this Age Resolved Age Notes LastModified by Organization Details LastModified Time Mother Disorder of thyroid gland 55 [email or web address] Not available 2018 09:33:35 Medical History Condition Response Coronary Artery Disease N Gout N Other N Kidney Stones N Blood Diseases N Blood Transfusion N Breast Cancer N COPD N Depression N Lung Disease N Defects or Inherited Disease N Anxiety [...] 50 mcg/0.25mL dose 1 completed Not Available [facility] 04/10/2023 15:04:48 COVID-19, mRNA, LNP-S, PF, 100 mcg/0.5mL dose or 50 mcg/0.25mL dose 1 completed Not Available [facility] 04/10/2023 15:04:48 Influenza, split virus, quadrivalent, preservative 2 completed Not Available [facility] 04/10/2023 15:04:48 COVID-19, mRNA, LNP-S, PF, 100 mcg/0.5mL dose or 50 mcg/0.25mL dose 2 completed Not Available [facility] 04/10/2023 15:04:48 COVID-19, mRNA, LNP-S, PF, 50 mcg/0.5 mL dose 1 completed Not Available [facility] 04/10/2023 15:04:48 COVID-19, mRNA, LNP-S, PF, 50 mcg/0.5 mL dose 2 completed Not Available [facility] 04/10/2023 15:04:48 Tdap 1 completed Not Available [facility] 04/10/2023 15:04:48 SARS-COV-2 (COVID-19) vaccine, UNSPECIFIED 3 completed Not Available [facility] 04/10/2023 15:04:48 influenza, unspecified formulation 3 completed Not Available [facility] 04/10/2023 15:04:48 Influenza, split virus, quadrivalent, preservative 9 completed Not Available [facility] 04/10/2023 15:04:48 Past Encounters Encounter ID Performer Location Encounter Start Date Encounter Closed Date Diagnosis/Indication Diagnosis SNOMED-CT Code Diagnosis ICD10 Code Diagnosis Note [id number] Niels Benedict [facility] [address] [place] [address] 03/17/2018 10:50:16 03/17/2018 13:26:26 Adult health examination 226372831 Z00.01 Active or passive immunization 012090232 Z23 Strain of muscle of left shoulder 9589005063 2977188 S46.912A rest, heat, and stretching if fails will order PT Microscopic hematuria 19 5167021 R31.21 Body mass index 25-29 - overweight 238182448 Z68.28 discussed diet and healthy lifestyle [id number] Niels Benedict DO [facility] [address] [place] [address] 06/11/2018 10:55:36 06/11/2018 12:52:57 Acute sinusitis 75514084 J01.90 Ulcerative colitis 46781 004 K51.90 [id number] Niels Benedict DO [facility] [address] [place] [address] 03/29/2019 09:23:38 03/29/2019 10:05:16 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 early atypical pna Acute chest pain 9859184 01 R07.9 dxd as pericardit is clinically , no imaging support will check sed and crp ekg was negative as was cxr, will consider repeat cxr ? atypical pna Tick bite without infection 367995117 W57.XXXA Leukocytosis 408319997 D 72.829 present prior to prednisone will complete pred in 2 days will need to continue to monitor [id number] Niels Benedict [facility] [address],[place] [address] 04/12/2019 15:39:45 04/12/2019 16:31:06 Hemoptysis 22123335 R04.2 Cough 66285227 R05 possible pna undetected by cxr? Fever 599367543 R50.9 ? early atypical pna C-reactive protein outside reference range 057642977 R79.82 Microscopic hematuria 19 4488221 R31.21 Leukocytosis 282963879 D 72.829 present prior to prednisone slightly elevated compared to ER labs, but he just finished pred on thursday Niels Benedict [facility] [address],[place] [address] 04/02/2020 13:18:35 04/02/2020 14:31:10 Adult health examination 682558406 Z00.00 no concerns today doing well just had BW thru GI which looked good Active or passive immunization 310527557 Z23 will get the flu shot later sept will skip the TDAP [id number] Niels Benedict [facility] [address] [address] 04/03/2021 08:52:49 04/09/2021 09:52:44 Active or passive immunization 806843457 Z23 will get the flu shot later sept will skip the TDAP Adult heal th examination 203280288 Z00.00 no concerns today doing well Fatigue 74560955 R53.83 stable Attention deficit hyperactivity disorder, 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 will fu with referral for eval [id number] Niels Benedict [facility] [address] [facility] [facility] [place] [place] [address] 04/08/2022 09:05:12 04/08/2022 09:58:44 Anxiety 43312234 F41.1 will start on higher dose of sertraline 50 mg and will adding Panic attack 527038845 F 41.0 will fu in two week [id number] Niels Benedict [facility] [address] [facility] [address] 04/22/2022 09:52:02 04/22/2022 15:41:08 Anxiety 25599707 F41.1 stable History of depression 16 9808283 Z86.59 stable Ulcerative colitis 22997 004 K51.90 stable [id number] Niels Benedict [facility] [address] [facility] [address] 06/03/2022 10:27:48 06/03/2022 13:38:29 Adult health examination 417428109 Z00.00 no concerns today doing well Ulcerative colitis 15072 004 K51.90 improving [id number] Niels Benedict [facility] [address] [facility] [address] 08/19/2022 08:58:27 08/19/2022 09:44:49 Adult attention deficit hyperactivity disorder 003095524 F90.2 will restart the 5 mg and fu with patient [id number] Niels Benedict [facility] [address] [facility] [address] 06/09/2023 13:29:09 06/09/2023 16:03:30 Adult attention deficit hyperactivity disorder 070038331 F90.2 will restart the 5 mg and fu with patient Ulcerative colitis 30869 004 K51.90 improving Sleep apnea 76557867 G47 .33 doing really good with the CPAP [id number] Niels Benedict [facility] [address] [facility],[place] [address] 11/23/2023 14:06:12 11/23/2023 16:44:24 History of depression 218636165 Z86.59 stable Crohn's disease 57138663 K50.00 stable Muscle pain 69269588 M79 .18 agreed to tramadol PRN for muscle as he comes off the prednisone Adult atte ntion deficit hyperactivity disorder 499727379 F90.2 will restart the 5 mg and fu with patient Melanocyti c nevus of skin 481614757 D22.5 agreed to derm referral Colitis 39968400 K51.90 stable currently External hemorrhoids 239 83016 K64.4 will try higher dosed steriod Impaired f asting glycemia 118893330 R73.01 agreed to check his sugar levels given salvage determiner use of steriods Long-term current use of immunosuppressive drug 441350151 Z79.60 will set up with bone density due to salvage determiner use of prednisone over 2 years [id number] Niels Benedict [facility] [address] [facility],[place] [address] 03/08/2024 13:38:12 03/08/2024 14:56:02 Panic attack 294258464 F41.0 will start on adjusted dose of the ativan and start on hydroxyzin e as well for the severe panic he is experienci ng Anxiety 66115367 F41.1 fu next week [id number] Niels Benedict [facility] [address] [facility],[place] [address] 03/14/2024 10:03:13 03/14/2024 11:20:12 Depression screening 876829970 Z13.31 continue plan as prescribed Depressive disorder 4254 2767 F32.1 doing bettercont inue current medication regimine [id number] Niels Benedict [facility] [address] [facility],[place] [address] 03/28/2024 11:04:23 03/28/2024 11:55:43 Crohn's disease 94837216 K50.00 stable Depressive disorder 3548 9007 F32.1 doing bettercont inue current medication regimine Panic attack 971494074 F 41.0 will start on adjusted dose of the ativan and start on hydroxyzin e as well for the severe panic he is experienci ng Anxiety 42219660 F41.1 fu next week [id number] Niels Benedict [facility] [address] [facility] [address] 04/05/2024 10:54:58 04/05/2024 12:17:29 Panic attack 617563182 F41.0 improving Anxiety 80148734 F41.1 needs refill Depressive disorder 3548 9007 F32.1 more tempered mood, much more stable [id number] Niels Benedict [facility] [address] [facility] [address] 04/08/2024 09:21:10 04/08/2024 13:56:13 History of calculus of kidney 674651076 Z87.442 will set up with [place] [id number] Niels Benedict [facility] [address] [facility], [place] [address] 04/29/2024 09:08:15 04/29/2024 11:30:20 Adult attention deficit hyperactivity disorder 271644473 F90.2 stable Anxiety 93003939 F41.1 stable Crohn's disease 84229783 K50.00 stable Kidney stone 05663200 N2 0.[address] order from urology [id number] Niels Benedict [facility] [address] [facility] [address] 06/17/2024 13:23:18 06/17/2024 13:56:50 Active or passive immunization 708087258 Z23 will get the flu shot later sept will skip the TDAP Adult [facility] th examination 107568988 Z00.00 no concerns today doing well [id number] Niels Benedict [facility] [address] [facility] [address] [facility] [place] [place] [address] 12/05/2024 10:55:53 12/05/2024 14:01:06 Renewal of prescription 750044036 Z76.0 stable Depression screening 171 605057 Z13.31 continue plan as prescribed Adult atte ntion deficit hyperactivity disorder 489909611 F90.2 stable Anxiety 19374736 F41.1 stable Colitis 03499758 K51.90 stable currently Crohn's disease 49388208 K50.00 stable Kidney stone 84981769 N2 0.[address] order from urology Health Concerns Section Related Observation LastModified by Organization Detai ls LastModified Time None Recorded Concern Status LastModified by Organization Details LastModified Time None Recorded Advance Directives Directive None Recorded Payers Encounter Date Sequence Insurance Name Policy Number Policy Scott Covered Member ID Scott Member ID Guarantor Name 04/05/2024 1 [facility] [facility] [employer] (HMO) [id number] Slick H Benny [id number] Slick H Benny 04/08/2024 1 [facility] [employer] - [employer] (HMO) [id number] Slick H Benny [id number] Slick H Benny 04/29/2024 1 [facility] [employer] - [employer] (HMO) [id number] Slick H Benny [id number] Slick H Benny 06/17/2024 1 [facility] [employer] - [employer] (HMO) [id number] Slick H Benny [id number] Slick H Benny 12/05/2024 1 [facility] [employer] - [employer] (HMO) [id number] Slick H Benny [id number] Slick H Benny Notes Date Note Type Note Provider Name a nd Address Organization Details Recorded Time 4 text/html 1 week f/u the patient [...] how to talk to her MARIAELENA HALL [address] [place] [address], [place], [phone], [facility] 04/05/2024 11:44:24 4 text/html c/o [...] instructions for fluid intake MARIAELENA HALL [address] [place], [address], [facility] 04/08/2024 10:27:31 4 text/html 3 [...] well for the patient MARIAELENA HALL [address] [facility], [place], [address], [facility] 04/29/2024 11:24:02 4 text/html Annual [...] therapist with his marriagecurrently back at homedoing better MARIAELENA HALL [address] [place], [address], [facility] 06/17/2024 13:54:53 5 text/html 1 mos f/u the patient is doing better emotionally, mentally is still working on his relationship, still seeing a his therapistthe patient does still have some anxiety and sadness about the relationship meds working thoughplus the adderall is working really well ernesto. with him completing college courses will keep hold on the sertraline taper, recommended he stay on it will he is going through thismay recommended increasing his sertraline for better control of the depression/anxiety can continue with the ativan as needed, doesn't use it every day, only for panic attacks kidney stone: resolved, does have a f/u with urology having some residual pain around the kidney with the stone, will fu with uro to see if they think it is related depression screening: much improved MARIAELENA HALL [address] [place], [address], [facility] 12/05/2024 11:37:29
--- OUTSIDE RECORDS SUMMARY | 2024-12-14 07:29 | XMS_ITS | Clinical Summary ---
Author Organization [facility] Address [address] [place] [address] Care Team Providers Care Ambulatory Care Nurse Name Role Phone Roverto Chauhan MD Primary Care Provider [phone] Social History Tobacco Use Types Packs/Day Years [...] patient's age to complete this topic Insurance [place] [address] BCBS FEE FOR SERVICE PPO * Guarantor: REINA ESCREEN Account Type Relation to Patient Date of Phone Billing Address [employer] [phone] 24 (Home) [phone] (Work) C/O ESCREEN ATTN: A/P [address] [address] [facility] [place] [address] Care Teams Ambulatory Care Nurse Relationship Specialty Start Date End Date Roverto Chauhan MD [address] [place] [address] PCP - General 06/03/08
[2024-12-14 07:55] LABS: Basophils Percent Auto 0.5 % (0-2); Eosinophils Absolute Auto 0.4 X10*3/uL (0.0-0.4); Eosinophils Percent Auto 4.6 % (0-4); Hemoglobin 14.7 g/dl (14.0-18.0); Imm Gran Pct Auto 1.2 % (0.0-0.4); Lymphocytes Absolute Auto 2.9 X10*3/uL (1.2-4.9); MANUAL DIFF FLAG NO; Mean Corpuscular HGB Conc 33.4 g/dl (31.0-36.0); Mean Corpuscular Hemoglobin 27.9 pg (27.0-33.0); Mean Corpuscular Volume 83.5 fL (80.0-98.0); Mean Platelet Volume 9.6 fL (9.4-12.4); Monocytes Absolute Auto 0.9 X10*3/uL (0.1-1.2); Monocytes Percent Auto 10.9 % (2-11); Neutrophils Absolute Auto 4.2 x10*3/uL (2.0-8.3); Neutrophils Percent Auto 48.8 % (45-73); Platelet Count 278 X10*3/uL (160-400); Red Blood Count 5.27 X10*6/uL (4.60-5.80); Red Cell Distribution Width 14.3 % (11.0-16.0); White Blood Count 8.5 X10*3/uL (4.8-10.8)
[2024-12-14 12:38] LABS: Alanine Aminotransferase 75 U/L (0-40); Albumin Level 4.3 g/dL (3.5-5.0); Anion Gap 16 (12-20); Aspartate Amino Transferase 44 U/L (5-37); Bilirubin Total 0.4 mg/dL (0.0-1.0); Blood Urea Nitrogen 14 mg/dL (9-16); C Reactive Protein 0.39 mg/dL (< or = 0.50); Calcium 9.6 mg/dL (8.4-10.2); Carbon Dioxide 26 mmol/L (22-29); Chloride 106 mmol/L (96-108); Estimated Glomerular Filt Rate > 60; Glucose Random 128 mg/dL (60-115); Potassium 4.5 mmol/L (3.3-5.1); Sodium 143 mmol/L (135-145); Total Protein 7.4 g/dL (6.5-8.0)
[2024-12-14 12:42] LABS: Alkaline Phosphatase 109 U/L (39-117)
== END 2024-12-14 07:26 | disposition home or self-care (01) ==
LOC: HO.LAB 07:25
PROVIDERS: PCP Physician Assistant; Visit Provider Internal Medicine
DX: K51.00 Ulcerative (chronic) pancolitis without complications (principal)
CPT/HCPCS: 36415; 80053; 85025; 86140

== ENCOUNTER 2024-12-15 11:38 | Outpatient (AMB) | payer OTHER, SELFPAY ==
--- NOTE | 2024-12-15 11:41 | MHC.OFFVIS ---
Intake Visit Reasons: 12w/[facility] Intake Note: Patient is present for 12 week follow up/[facility] Urology Med: Tamsulosin Antibiotic Allergy: Sulfa Blood Thinner: None Director Of Valuation Required: No Electrical Design Technician: Electrical Design Technician Present Accompanied by: Spouse Allergies Sulfa (Sulfonamide Antibiotics) Allergy (Verified 12/15/24 11:42) Unknown HPI Comments Details: 12/15/24--Discussed 24 hour urine results collected:10/10/34 Total volume 1.83 L, Calcium 297 mg; Oxalate 37 mg, Citrate 675 mg, Sodium 255. Instructed on importance of fluid intake. I have discussed diet modification to decrease risk of forming more kidney stones. I have discussed low oxalate diet and specific foods to avoid including certain green leafy vegetables, chocalate, nuts, tea, beets, rubarb; low sodium, decreased use of animal protein and the importance of hydration drinking up to 2-2.5 liters of fluids and use of adding lemon to water to increase citrate in the diet. A pamphlet is also provided today. 30 minutes spent in review of records pertaining to this visit and including [id number] discussion with the patient and documentation of this visit. Discussed vitamin B6 100 mg daily, we will refer to nephrology for further management options for hypercalciuria. Follow-up in 1 year with imaging. In review of his chart, the patient had renal colic earlier this year and he had a renal ultrasound 08/22/24 which did not show the kidney stones; which were noted on follow-up CT imaging-09/09/24-Mild right hydronephrosis and proximal hydroureter secondary to an obstructing 8 x 4 mm calculus just distal to the right UPJ. 09/22/2024--is post cystoscopy right ureteroscopy laser lithotripsy 09/13/2024 of right ureteral stone. Right ureteral stent removed today without difficulty. Discussed metabolic workup. Left kidney 3 mm renal stone and we will continue to monitor. 24 hr urine. 09/12/24--Slick is a very pleasant 38-year-old male patient of Dr. Clarke. He has a past medical history of ulcerative colitis, depression, sleep apnea, Crohn's disease, hemorrhoids, migraines, anemia, acid reflux, and anxiety. He presents to the office today for follow-up of his nephrolithiasis. Of note, patient underwent right-sided ESWL with Dr. Polanco 07/20/2024. Of note, patient was seen approximately 2 weeks ago at which time a CT KUB was ordered for further assessment evaluation as patient had been reporting continued right-sided flank pain. These results were reviewed with the patient today. Mild right hydronephrosis and proximal hydroureter secondary to 8 mm obstructing calculus just distal to the right UPJ. 3 mm nonobstructing calculus inferior left kidney. Kidneys otherwise normal. He continues to report right-sided flank pain that radiates to right-sided lower abdomen area. We discussed further treatment options and risks and benefits of these treatment options. He otherwise denies any bothersome urinary issues. He denies urinary urgency, urinary frequency, incontinence, nocturia, hematuria, dysuria, foul smelling urine, changes to urinary stream, fever, and or chills. He is happy with his current voiding parameters. We discussed right-sided ureteroscopy. All questions were answered. He otherwise offers no other issues or concerns at this time. [facility] Medical History Kidney stone Depressive disorder Colitis Melanocytic nevus Muscle pain Sleep apnea Adult attention deficit hyperactivity disorder Lyme disease Hemorrhoids Migraine Anemia Varicella History of depression Ulcerative colitis Surgical History History of colonoscopy Social History Are you a primary care transitions manager to a significant other at home: No Do you presently have visiting nurse or other home services: No Patient Tobacco Use Status: Current everyday Tobacco user Tobacco use type: Smokeless Tobacco Second Hand Smoke Exposure: No Review of Systems Const All systems reviewed & are unremarkable except as noted in HPI and below Reports no additional complaints Eyes Reports no additional complaints ENT Reports no additional complaints Card Reports no additional complaints Resp Reports no additional complaints GI Reports no additional complaints Reports as per HPI Musc Reports no additional complaints Skin/Breast Reports system reviewed and no additional complaints, except as documented Neuro Reports no additional complaints Psych Reports no additional complaints Endo Reports no additional complaints Andrew/Lymph Reports no additional complaints Aller/Immun Reports no additional complaints Results Reviewed Results Reviewed: Date of Service: 09/09/24 CT ABDOMEN AND PELVIS WITHOUT CONTRAST FINDINGS: LUNG BASES: The visualized lung bases are normal. Heart size is normal. No effusions. Normal GE junction. LIVER, GALLBLADDER, AND BILIARY TREE: There is hepatomegaly with diffuse fatty infiltration. There is no suspicious focal hepatic lesion. Mild fatty sparing abutting the gallbladder fossa. No intrahepatic biliary dilatation. The gallbladder is unremarkable with no evidence of radiopaque gallstones, gallbladder wall thickening, or obvious pericholecystic inflammatory changes. PANCREAS: Unremarkable. SPLEEN: Unremarkable. ADRENAL GLANDS: Unremarkable. KIDNEYS AND URETERS: Mild right perirenal stranding and fullness of the right renal collecting system and proximal ureter. Obstructing calculus is present just distal to the right UPJ, measuring 8 x 4 mm. No renal masses. Normal cortical thickness. Left kidney demonstrates a 3 mm nonobstructing calculus in the lower pole region. Left kidney is otherwise normal. Left ureter is normal. BLADDER: Unremarkable. GASTROINTESTINAL TRACT: The small and large bowel are unremarkable. The appendix is unremarkable. ABDOMINAL WALL: Tiny fat-containing left inguinal hernia. Tiny fat-containing umbilical hernia. LYMPH NODES: Normal. VASCULAR: Unremarkable. PELVIC VISCERA: The prostate and seminal vesicles are unremarkable. OSSEOUS STRUCTURES: No suspicious lytic or blastic bone lesion. IMPRESSION: 1. Mild right hydronephrosis and proximal hydroureter secondary to an obstructing 8 x 4 mm calculus just distal to the right UPJ. 2. 3 mm nonobstructing calculus inferior left kidney. Kidneys otherwise normal. 3. Diffuse fatty infiltration and mild enlargement of the liver. No suspicious lesion. Date of Service: 08/22/24 US RETROPERITONEAL LIMITED (RENAL ONLY) CLINICAL INFORMATION: Calculus of kidneys.. COMPARISON: CT kidneys 07/06/2024 TECHNIQUE: Routine retroperitoneal ultrasound imaging with attention kidneys was performed. FINDINGS: RIGHT KIDNEY: 12.7 x 4.5 x 6.1 cm (SAG x AP x TRV). The kidney is normal in size, contour, and echogenicity. Renal cortical thickness is normal. No calculi or focal parenchymal lesions. There is mild pelvic fullness.. LEFT KIDNEY: 12.2 x 6.5 x 4.9 cm (SAG x AP x TRV). The kidney is normal in size, contour, and echogenicity. Renal cortical thickness is normal. No calculi or focal parenchymal lesions. No hydronephrosis. IMPRESSION: No echogenic renal calculi seen. Mild right renal pelvic fullness.. Assessment & Plan Assessment & Plan (1) Kidney stone: Code(s): N20.0 - Calculus of kidney Category: Medical (2) Hypercalciuria: Code(s): R82.994 - Hypercalciuria Category: Medical Plan Discussed vitamin B6 100 mg daily, we will refer to nephrology for further management options for hypercalciuria. Follow-up in [address] KUB ordered. (In review of his chart, the patient had renal colic earlier this year and he had a renal ultrasound 08/22/24 which did not show the kidney stones; which were noted on follow-up CT imaging-09/09/24-Mild right hydronephrosis and proximal hydroureter secondary to an obstructing 8 x 4 mm calculus just distal to the right UPJ.) Orders: Orders CT kidney stone 10 Months N20.0 - Calculus of kidney Referrals Nephrology Referral R82.994 - Hypercalciuria Medications: New pyridoxine (vitamin B6) 100 mg PO DAILY 90 tabs 3RF Patient Instructions: The patient had an opportunity to ask questions regarding treatment plan. The patient expressed understanding and agreement with the above treatment plan. The patient is aware they should contact our office by phone for worsening of their current condition or the appearance of new symptoms. Compliance is encouraged with any medications and followup testing that is ordered. It is a privilege to be allowed the opportunity to participate in the urologic care of your patient. If you have any questions or concerns regarding treatment for the above conditions please do not hesitate to contact me. The office telephone contact is [phone]. This note is constructed in part using voice recognition software. While every effort has been made to ensure accuracy veterans service officer errors may have been included. Yours sincerely, Neto Keane MD Coding Level of Care Code Est Pt Level 4 (87593) Diagnoses Kidney stone N20.0 Hypercalciuria R82.994
--- OUTSIDE RECORDS SUMMARY | 2024-12-15 12:43 | XMS_ITS | Clinical Summary ---
Author Organization [facility] Address [address] [place] [address] Care Team Providers Care Nuclear Power Plant Engineer Name Role Phone Roverto Chauhan MD Primary Care Provider [phone] Social History Tobacco Use Types Packs/Day Years [...] patient's age to complete this topic Insurance [facility] [place] [address] BCBS FEE FOR SERVICE PPO * Guarantor: REINA ESCREEN Account Type Relation to Patient Date of Phone Billing Address [employer]ational [employer] [phone] 24 (Home) [phone] (Work) [employer] ESCREEN ATTN: A/P [address] [address] [place] [address] Care Teams Nuclear Power Plant Engineer Relationship Specialty Start Date End Date Roverto Chauhan MD [address] [place] [address] PCP - General 06/03/08
--- OUTSIDE RECORDS SUMMARY | 2024-12-15 12:44 | XMS_ITS | Data Portability ---
Author Organization [facility] Home Service Address [address] [place] [address] Assessment Encounter Date Assessment Date Assessment LastModified [...] urinalysi s complete, reflex culture 2023 024 [facility], [address] [place] [address], [place], [address], 04/12/2024 11:18:54 Referral None recorded. Procedures None recorded. Surgeries None recorded. Imaging CT, abdomen + pelvis, w/o contrast - r/o kidney stone 2023 024 [email or web address] 10 [facility] [place], [address] [facility], [address], [place], [address], 04/11/2024 10:12:38 Medication Orders tamsulosi n 0.4 mg capsule 2023 024 [facility]armacy #[id number], [address] [place], [address], 12/05/2024 11:31:25 oxycodone 5 mg tablet 2023 024 [facility]/Pharmacy #[id number], [address] [place], [address], 12/05/2024 11:27:29 lorazepam 1 mg tablet 2023 024 [facility]/Pharmacy #5, [address] [place], [address], 04/05/2024 11:40:50 Patient TargetsNo targets recorded. Patient InstructionsNo instructions recorded. Reason for Referral None Reported. Results Created Date Observation Date Name Description Value Unit Range Abnormal Flag Note LastModifiedBy Organization Detail LastModifiedTime 04/11/2004/11/2024 CT, abdom en + pelvi s, w/o contr ast No observ ation record ed. [facility] [place] [address] [address], [place], [address], 04/11/2024 15:38:46 04/26/20 24 04/26/2024 XR, kidne y + urete r + bladd er No observ ation record ed. [facility] (Medical Records) [address] [place], [address], 04/26/2024 12:15:58 07/07/20 24 07/06/2024 CT, abdom en + pelvi s, w/o contr ast No observ ation record ed. [facility] (Medical Records) [address] [place], [address], 07/08/2024 09:07:14 08/22/19 25 08/22/2024 CT, abdom en + pelvi s, w/o contr ast No observ ation record ed. [facility] [place] [address], [place], [address], 08/22/2024 10:26:29 09/09/19 25 09/09/2024 CT, abdom en + pelvi s, w/o contr ast No observ ation record ed. [email or web address] [facility] (Medical Records) [address] [place], [address], 09/09/2024 09:48:57 09/13/19 25 09/13/2024 fluor oscop y (PROC ) No observ ation record ed. [email or web address] [facility] (Medical Records) [address] [place], [address], 09/13/2024 15:48:37 Result Notes None recorded. Problems Name Problem SNOMED Code Status Onset Date Resolution Date Notes Provider Name and Address Organization Details Recorded Time Ulcerative colitis 05791552 Active 2017 Not Available [facility] 3 09:54:27 History of depression 407699289 Active 2017 Not Available [facility] 3 09:54:27 Acid reflux 268647367 Active 2017 Not Available [facility] 3 09:54:27 Anxiety 42397480 Active 2017 Not Available [facility] 3 09:54:27 Varicella 09532567 Active 2017 Not Available [facility] 3 09:54:27 Anemia 576096329 Active 2017 2/2 UC Not Available [facility] 3 09:54:27 Migraine 02097063 Active 2017 Not Available [facility] 3 09:54:27 Hemorrhoid s 90357877 Active 2017 Not Available [facility] 3 09:54:27 Lyme disease 15424289 Active 2017 Not Available [facility] 3 09:54:27 Panic attack 880408217 Active 2021 Not Available [facility] 3 09:54:27 Adult attention deficit hyperactiv ity disorder 172071118 Active 2022 Not Available [facility] 3 09:54:27 Crohn's disease 99896189 Active 2022 Not Available [facility] 3 09:54:27 Sleep apnea 33776733 Active 2022 MARIAELENA HALL [address] [place], [address], [facility] 3 13:51:36 Muscle pain 86984607 Active 2023 MARIAELENA HALL [address] [place] [address], [address], [facility] 4 14:25:03 Melanocyti c nevus of skin 041600998 Active 2023 MARIAELENA HALL [address] [place] [address], [address], [facility] 4 14:29:10 Colitis 71655088 Active 2023 MARIAELENA HALL [address] [place] [address], [address], [facility] 4 14:31:39 External hemorrhoid s 69261611 Active 2023 MARIAELENA HALL [address] [place] [address], [address], [facility] 4 14:32:42 Impaired fasting glycemia 751764050 Active 2023 MARIAELENA HALL [address] [place] [address], [address], [facility] 4 14:35:57 Depressive disorder 69843347 Active 2023 MARIAELENA HALL [address] [place] [address], [address], [facility] 4 10:24:16 Kidney stone 57147355 Active 2023 MARIAELENA HALL [address] [facility], [place], [address], [facility] 15:39:37 Problem Notes None recorded. Procedures Surgical History Date Name Laterality Status Provider Name and Address Organization Details Recorded Time 9 Colonoscopy completed [facility] 09/10/2018 08:45:52 5 Colonoscopy completed [facility] 03/16/2018 16:35:24 Imaging Results Imaging Date Name Status LastModified by Organiz ation Details LastModified Time 04/11/2024 CT, abdomen + pelvis, w/o contrast completed [facility] [address], [address], 04/11/2024 15:38:46 04/26/2024 XR, kidney + ureter + bladder completed [facility] (Medical Records) [address] [place] [address], [address], 04/26/2024 12:15:58 07/06/2024 CT, abdomen + pelvis, w/o contrast completed [facility] (Medical Records) [address] [place] [address], [address], 07/08/2024 09:07:14 08/22/2024 CT, abdomen + pelvis, w/o contrast completed [facility] [address], [address], 08/22/2024 10:26:29 09/09/2024 CT, abdomen + pelvis, w/o contrast completed [facility] (Medical Records) [address] [place], [address], 09/09/2024 09:48:57 09/13/2024 fluoroscopy (PROC) completed [email or web address] [place] [address] (Medical Records) [address] [place] [address], [address], 09/13/2024 15:48:37 Procedure Notes None recorded. Medical Equipment None Reported. Allergies Allergen ID Allergen Name Allergen Category Reaction Reaction Severity Criticality Documentation Date Start Date Code Code System Note Provider Name and Address Organization Details Recorded Time 2152 Substance with sulfonami de structure and antibacte rial mechanism of action (substanc e) medicatio n rash Not available Not available 03/17/2018 53379 8003 SNOMED Betzy Melani bo, [facility] 8 11:01:18 6307 Wellbutri n medicatio n other Not available Not available 08/19/2022 03941 RxNorm shake s, chill s, body aches MARIAELENA HALL [address] [place] [address], [place], [address], [facility] 3 09:17:51 Medications Name [...] Available Not Available Not Available Flucelvax Quad 8308-1711 (PF) 60 mcg (15 mcg x 4)/0.5 [...] Updated DateTime 4 168.91 cm 33.5 kg/m2 50781.2 7 g 79 /min 99 % 99 % 118 mm[Hg] 82 mm[Hg] Ora Johnny [facility] 4 11:20:32 Date Recorded Body height Body mass index (BMI) Body weight Heart rate Oxygen saturation Oxygen saturation in Arterial blood by Pulse oximetry Systolic blood pressure Diastolic blood pressure Provider Name and Address Organization Details Last Updated DateTime 4 168.91 cm 32.7 kg/m2 44758.5 9 g 73 /min 98 % 98 % 138 mm[Hg] 88 mm[Hg] Ora Turner [facility] 4 13:27:36 Date Recorded Body height Body mass index (BMI) Body weight Heart rate Oxygen saturation Oxygen saturation in Arterial blood by Pulse oximetry Systolic blood pressure Diastolic blood pressure Provider Name and Address Organization Details Last Updated DateTime 5 168.91 cm 36.3 kg/m2 629992. 86 g 89 /min 96 % 96 % 134 mm[Hg] 86 mm[Hg] Ora Turner [facility] 5 11:11:18 Social History Question Answer Notes LastModified by Via[employer] Details LastModified Time Tobacco Smoking Status Current Every Day Smoker Ora Turner [facility] 03/28/2024 11:19:40 What Was The Date Of Your Most Recent Tobacco Screening? 12/05/2024 Information not available 12/05/2024 How Much Tobacco Do You Smoke? 0.5 PPD Information not available 03/28/2024 How Many Years Have You Smoked Tobacco? 9 [id number] Information not available 06/05/2020 Sex: Unknown Functional Status Question Answer Note LastModified by [employer] Details LastModified Time Do you or have [...] mcg/0.25mL dose 1 completed Not Available [facility] 04/10/2023 15:04:48 COVID-19, mRNA, LNP-S, PF, 100 mcg/0.5mL dose or 50 mcg/0.25mL dose 1 completed Not Available [facility] 04/10/2023 15:04:48 Influenza, split virus, quadrivalent, preservative 2 completed Not Available [facility] 04/10/2023 15:04:48 COVID-19, mRNA, LNP-S, PF, 100 mcg/0.5mL dose or 50 mcg/0.25mL dose 2 completed Not Available [facility] 04/10/2023 15:04:48 COVID-19, mRNA, LNP-S, PF, 50 mcg/0.5 mL dose 1 completed Not Available [facility] 04/10/2023 15:04:48 COVID-19, mRNA, LNP-S, PF, 50 mcg/0.5 mL dose 2 completed Not Available [facility] 04/10/2023 15:04:48 Tdap 1 completed Not Available [facility] 04/10/2023 15:04:48 SARS-COV-2 (COVID-19) vaccine, UNSPECIFIED 3 completed Not Available [facility] 04/10/2023 15:04:48 influenza, unspecified formulation 3 completed Not Available [facility] 04/10/2023 15:04:48 Influenza, split virus, quadrivalent, preservative 9 completed Not Available [facility] 04/10/2023 15:04:48 Past Encounters Encounter ID Performer Location Encounter Start Date Encounter Closed Date Diagnosis/Indication Diagnosis SNOMED-CT Code Diagnosis ICD10 Code Diagnosis Note [id number] Niels Benedict [facility] [address] [place] [address] 03/17/2018 10:50:16 03/17/2018 13:26:26 Adult health examination 893386932 Z00.01 Active or passive immunization 002985735 Z23 Strain of muscle of left shoulder 6943591952 2032468 S46.912A rest, heat, and stretching if fails will order PT Microscopic hematuria 19 5871665 R31.21 Body mass index 25-29 - overweight 931608463 Z68.28 discussed diet and healthy lifestyle [id number] Niels Benedict DO [facility] [address] [place] [address] 06/11/2018 10:55:36 06/11/2018 12:52:57 Acute sinusitis 80724634 J01.90 Ulcerative colitis 57487 004 K51.90 [id number] Niels Benedict DO [facility] [address] [place] [address] 03/29/2019 09:23:38 03/29/2019 10:05:16 Auditory processing disorder 898130635 H93.25 with speech delay will have lamont selby and consult for treatment Ulcerative colitis 66901 004 K51.90 Adult [facility] th examination 813835451 Z00.01 Active or passive immunization 484888651 Z23 tdap not covered by insurance Body mass index 25-29 - overweight 531737355 Z68.28 discussed diet and healthy lifestyle [id number] Niels Benedict [facility] [address] [facility],[place] [address] 04/08/2019 11:33:04 04/08/2019 12:23:46 Fever 490969315 R50.9 ? early atypical pna Acute chest pain 0869987 01 R07.9 dxd as pericardit is clinically , no imaging support will check sed and crp ekg was negative as was cxr, will consider repeat cxr ? atypical pna Tick bite without infection 702282624 W57.XXXA Leukocytosis 677368872 D 72.829 present prior to prednisone will complete pred in 2 days will need to continue to monitor [id number] Niels Benedict [facility] Internal [address],[place] [address] 04/12/2019 15:39:45 04/12/2019 16:31:06 Hemoptysis 71085976 R04.2 Cough 38561108 R05 possible pna undetected by cxr? Fever 250119652 R50.9 ? early atypical pna C-reactive protein outside reference range 935577446 R79.82 Microscopic hematuria 19 9093773 R31.21 Leukocytosis 503253428 D 72.829 present prior to prednisone slightly elevated compared to ER labs, but he just finished pred on thursday Niels Benedict [facility] [address],[place] [address] 04/02/2020 13:18:35 04/02/2020 14:31:10 Adult health examination 629768384 Z00.00 no concerns today doing well just had BW thru GI which looked good Active or passive immunization 472764799 Z23 will get the flu shot later sept will skip the TDAP [id number] Niels Benedict [facility] [address] [address] 04/03/2021 08:52:49 04/09/2021 09:52:44 Active or passive immunization 816987158 Z23 will get the flu shot later sept will skip the TDAP Adult heal th examination 269440644 Z00.00 no concerns today doing well Fatigue 04611118 R53.83 stable Attention deficit hyperactivity disorder, 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 will fu with referral for eval [id number] Niels Benedict [facility] [address] [facility] [address] [facility] [place] [address] 04/08/2022 09:05:12 04/08/2022 09:58:44 Anxiety 89562902 F41.1 will start on higher dose of sertraline 50 mg and will adding Panic attack 417337881 F 41.0 will fu in two week [id number] Niels Benedict [facility] [address] [facility] [address] 04/22/2022 09:52:02 04/22/2022 15:41:08 Anxiety 95036477 F41.1 stable History of depression 16 0304439 Z86.59 stable Ulcerative colitis 95196 004 K51.90 stable [id number] Niels Benedict [facility] [address] [facility] [address] 06/03/2022 10:27:48 06/03/2022 13:38:29 Adult health examination 094751231 Z00.00 no concerns today doing well Ulcerative colitis 88373 004 K51.90 improving [id number] Niels Benedict [facility] [address] [facility] [address] 08/19/2022 08:58:27 08/19/2022 09:44:49 Adult attention deficit hyperactivity disorder 885675636 F90.2 will restart the 5 mg and fu with patient [id number] Niels Benedict [facility] [address] [facility] [address] 06/09/2023 13:29:09 06/09/2023 16:03:30 Adult attention deficit hyperactivity disorder 680182861 F90.2 will restart the 5 mg and fu with patient Ulcerative colitis 57664 004 K51.90 improving Sleep apnea 72368180 G47 .33 doing really good with the CPAP [id number] Niels Benedict [facility] [address] [facility],[place] [address] 11/23/2023 14:06:12 11/23/2023 16:44:24 History of depression 224717837 Z86.59 stable Crohn's disease 04365682 K50.00 stable Muscle pain 32815060 M79 .18 agreed to tramadol PRN for muscle as he comes off the prednisone Adult atte ntion deficit hyperactivity disorder 428145915 F90.2 will restart the 5 mg and fu with patient Melanocyti c nevus of skin 365598613 D22.5 agreed to derm referral Colitis 59422073 K51.90 stable currently External hemorrhoids 239 22732 K64.4 will try higher dosed steriod Impaired f asting glycemia 037271027 R73.01 agreed to check his sugar levels 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 Long-term current use of immunosuppressive drug 172236050 Z79.60 will set up with bone density due to 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 over 2 years [id number] Niels Benedict [facility] [address] [facility],[place] [address] 03/08/2024 13:38:12 03/08/2024 14:56:02 Panic attack 708636311 F41.0 will start on adjusted dose of the ativan and start on hydroxyzin e as well for the severe panic he is experienci ng Anxiety 29549664 F41.1 fu next week [id number] Niels Benedict [facility] [address] [facility],[place] [address] 03/14/2024 10:03:13 03/14/2024 11:20:12 Depression screening 245940147 Z13.31 continue plan as prescribed Depressive disorder 0644 1997 F32.1 doing bettercont inue current medication regimine [id number] Niels Benedict [facility] [address] [facility],[place] [address] 03/28/2024 11:04:23 03/28/2024 11:55:43 Crohn's disease 11069658 K50.00 stable Depressive disorder 3548 9007 F32.1 doing bettercont inue current medication regimine Panic attack 235019207 F 41.0 will start on adjusted dose of the ativan and start on hydroxyzin e as well for the severe panic he is experienci ng Anxiety 92947421 F41.1 fu next week [id number] Niels Benedict [facility] [address] [facility] [address] 04/05/2024 10:54:58 04/05/2024 12:17:29 Panic attack 749069098 F41.0 improving Anxiety 90389380 F41.1 needs refill Depressive disorder 3548 9007 F32.1 more tempered mood, much more stable [id number] Niels Benedict [facility] [address] [facility] [address] 04/08/2024 09:21:10 04/08/2024 13:56:13 History of calculus of kidney 106453399 Z87.442 will set up with [place] CT [id number] Niels [facility] [address] [facility], [facility] [address] 04/29/2024 09:08:15 04/29/2024 11:30:20 Adult attention deficit hyperactivity disorder 671916672 F90.2 stable Anxiety 47507525 F41.1 stable Crohn's disease 42218895 K50.00 stable Kidney stone 79029947 N2 0.[address] order from urology [id number] Niesl Benedict [facility] [address] [facility] [address] 06/17/2024 13:23:18 06/17/2024 13:56:50 Active or passive immunization 009873530 Z23 will get the flu shot later sept will skip the TDAP Adult [facility] th examination 540896497 Z00.00 no concerns today doing well [id number] Niels Benedict [facility] [address] [facility] [address] [facility] [place] [address] 12/05/2024 10:55:53 12/05/2024 14:01:06 Renewal of prescription 412583165 Z76.0 stable Depression screening 171 323277 Z13.31 continue plan as prescribed Adult atte ntion deficit hyperactivity disorder 966410156 F90.2 stable Anxiety 26690691 F41.1 stable Colitis 13419650 K51.90 stable currently Crohn's disease 90849315 K50.00 stable Kidney stone 06509533 N2 0.[address] order from urology Health Concerns Section Related Observation LastModified by Organization Detai ls LastModified Time None Recorded Concern Status LastModified by Organization Details LastModified Time None Recorded Advance Directives Directive None Recorded Payers Encounter Date Sequence Insurance Name Policy Number Policy Scott Covered Member ID Scott Member ID Guarantor Name 04/05/2024 1 [facility] [employer] (HMO) [id number] Slick H Benny [id number] Slick H Benny 04/08/2024 1 [facility] [employer] (HMO) [id number] Slick H Benny [id number] Slick H Benny 04/29/2024 1 [facility] [employer] (HMO) [id number] Slick H Benny [id number] Slick H Benny 06/17/2024 1 [facility] [employer] (HMO) [id number] Slick H Benny [id number] Slick H Benny 12/05/2024 1 [facility] [employer] (HMO) [id number] Slick H Benny [id number] Slick H Benny Notes Date Note [...] how to talk to her MARIAELENA HALL [address] [place] [address], [place], [address], [facility] 04/05/2024 11:44:24 4 text/html [...] instructions for fluid intake MARIAELENA HALL [address] [place], [address], [facility] 04/08/2024 10:27:31 4 text/html 3 [...] well for the patient MARIAELENA HALL [address] [facility], [place], [address], [facility] 04/29/2024 11:24:02 4 text/html Annual [...] back at homedoing better MARIAELENA HALL [address] [place], [address], [facility] 06/17/2024 13:54:53 5 text/html 1 [...] depression screening: much improved MARIAELENA HALL [address] [place], [address], [facility] 12/05/2024 11:37:29
== END 2024-12-15 12:59 | disposition home or self-care (01) ==
LOC: HO.HUSH 11:39
PROVIDERS: PCP Physician Assistant; Visit Provider Urology
DX: N20.0 Calculus of kidney (principal); R82.994 Hypercalciuria; R10.9 Unspecified abdominal pain
CPT/HCPCS: 99214

== ENCOUNTER 2024-12-15 11:54 | Outpatient (REF) | payer OTHER, SELFPAY ==
[2024-12-21 18:58] LABS: Calprotectin, Fecal 55 mcg/g
== END 2024-12-15 11:55 | disposition home or self-care (01) ==
LOC: HO.LNP 11:54
PROVIDERS: Visit Provider Internal Medicine
DX: R82.994 Hypercalciuria (principal); N20.0 Calculus of kidney
CPT/HCPCS: 81003; 83993; 99212

== ENCOUNTER 2024-12-23 14:18 | Outpatient (AMB) | payer OTHER, SELFPAY ==
--- OUTSIDE RECORDS SUMMARY | 2024-12-23 14:21 | XMS_ITS | Clinical Summary ---
Author Organization [facility] Address [address] [place] [address] Care Team Providers Care Supervisor Electronics Testing Name Role Phone Roverto Chauhan MD Primary Care Provider [phone] Social History Tobacco Use Types Packs/Day Years [...] patient's age to complete this topic Insurance [facility] [place] [address] [employer] FEE FOR SERVICE PPO * Guarantor: REINA ESCREEN Account Type Relation to Patient Date of Phone Billing Address Occupational [employer] [phone] 24 (Home) [phone] (Work) C/[employer] ESCREEN ATTN: A/P [address] [address] [place] [address] Care Teams Supervisor Electronics Testing Relationship Specialty Start Date End Date Roverto Chauhan MD [address] [place] [address] PCP - General 06/03/08
[2024-12-23 14:22] VITALS: BP 126/92; PULSE 71; O2SAT 99; BMI 36.6
--- NOTE | 2024-12-23 14:22 | HO.NEPHOV_ITS ---
Vital Signs 12/23/24 14:22 Height 5 ft 7 in Weight 234 lb BMI 36.6 BP 126/92 H Blood Pressure Location Rt brachial Position Sitting Pulse 71 Pulse Source Pulse Oximeter Pulse Oximetry (%) 99 Oxygen Delivery Method Room Air Intake Visit Reasons: INP: Hypercalciuria Financial Developer Required: No Accompanied by: Self / Same As Patient Allergies Sulfa (Sulfonamide Antibiotics) Allergy (Verified 12/23/24 14:24) Unknown Medication List - Last Reconciled 12/23/24 by Aniceto Gautam MD citric-sod citrat-sod phos-dex 0.327-2.63 gram/100 mL 15 mL miscellaneous BID 90 days dextroamphetamine-amphetamine 10 mg (Adderall) 10 mg PO DAILY hydrocortisone 2.5% topical DAILY pyridoxine (vitamin B6) 100 mg PO DAILY sertraline 50 mg PO DAILY ustekinumab (Stelara) 90 mg subcut Q8W HPI Comments Details: 39-year-old gentleman with past medical history of right-sided ureteric stones status post ESWL in Jul 2024, lithotripsy in September 2024 secondary to calcium oxalate stones, ulcerative colitis, depression, sleep apnea, Crohn's disease, hemorrhoids, migraines, anemia, acid reflux, and anxiety is referred to nephrology clinic by Urology for the management of hypercalcuria. He underwent Litholink in September 2024 which showed elevated super saturations for calcium phosphate 2.51 (range 0.5-2.0), hypercalciuria 297 (ref: <250), super saturations for calcium oxalate was 7.22 (ref: 6-10). Urinary pH was 6.21. Dietary factors included increased sodium intake with 24 hours sodium 255(ref: 50-150), increased phosphate intake with 24 hours phosphate 1.491 (ref: 0.6- 1.2). [facility]LY [facility] Medical History Kidney stone Depressive disorder Colitis Melanocytic nevus Muscle pain Sleep apnea Adult attention deficit hyperactivity disorder Lyme disease Hemorrhoids Migraine Anemia Varicella History of depression Ulcerative colitis Surgical History (Updated 12/23/24 @ 14:24 by INDIA Calderon) History of ureteroscopy (~09/2024) History of colonoscopy Social History Are you a primary long term care administrator to a significant other at home: No Do you presently have visiting nurse or other home services: No Patient Tobacco Use Status: Current everyday Tobacco user Tobacco use type: Smokeless Tobacco Second Hand Smoke Exposure: No Physical Exam Vital Signs: Last Vital Signs Pulse 71 12/23/24 14:22 BP 126/92 H 12/23/24 14:22 Pulse Ox 99 12/23/24 14:22 Oxygen Delivery Method Room Air 12/23/24 14:22 BMI result Body Mass Index 36.6 Results Reviewed Nephrology Results: Hgb 14.7 g/dl (14.0-18.0) 12/14/24 WBC 8.5 X10*3/uL (4.8-10.8) 12/14/24 Plt Count 278 X10*3/uL (160-400) 12/14/24 Sodium 143 mmol/L (135-145) 12/14/24 Potassium 4.5 mmol/L (3.3-5.1) 12/14/24 Chloride 106 mmol/L (96-108) 12/14/24 Carbon Dioxide 26 mmol/L (22-29) 12/14/24 BUN 14 mg/dL (9-16) 12/14/24 Creatinine 0.94 mg/dL (0.5-1.4) 12/14/24 Calcium 9.6 mg/dL (8.4-10.2) 12/14/24 Assessment & Plan Assessment & Plan (1) Kidney stone: Code(s): N20.0 - Calculus of kidney Category: Medical (2) 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 Urinary pH was 6.21. Dietary factors included increased sodium intake with 24 hours sodium 255(ref: 50-150), increased phosphate intake with 24 hours phosphate 1.491 (ref: 0.6- 1.2). - we will get PTH, Vitamin-D levels and also phosphorus levels. We will repeat a urinalysis to look for urine pH. - will start the patient on thiazides to decrease hypercalciuria and bicitra to increase urinary pH. We will monitor urine pH with a follow-up visit to avoid over-correction of urinary pH. - advised the patient for fluid intake at least 3 L per day, more so in summer - low-sodium diet, increased dairy products with the meals, increased citizen [place] and citrous intake (without added sugar) - decrease animal protein, avoid sugar sweetened sodas, fruit punch, grapefruit and large volume cranberry juice - avoid high oxalate food: spinach rhubarb, nuts, beets, tea, chocolate and soy products Orders: Orders Parathyroid Hormone Intact Today N13.30 - Unspecified hydronephrosis, N20.0 - Calculus of kidney, R82.994 - Hypercalciuria Vitamin D 25-OH Total Today N13.30 - Unspecified hydronephrosis, N20.0 - Calculus of kidney, R82.994 - Hypercalciuria Calcium Today N13.30 - Unspecified hydronephrosis, N20.0 - Calculus of kidney, R82.994 - Hypercalciuria Phosphorus Today N13.30 - Unspecified hydronephrosis, N20.0 - Calculus of kidney, R82.994 - Hypercalciuria AMB Urinalysis Auto Microscop. Today N20.0 - Calculus of kidney, R82.994 - Hypercalciuria Medications: New citric-sod citrat-sod phos-dex 0.327-2.63 gram/100 mL 15 mL miscellaneous BID 90 days 250 mL 5RF hydrochlorothiazide 25 mg PO DAILY 30 days 30 tabs 5RF Coding Level of Care Code New Pt Level 4 (83154) Diagnoses Kidney stone N20.0 Hypercalciuria R82.994
== END 2024-12-23 15:01 | disposition home or self-care (01) ==
LOC: HO.HKA 14:18
PROVIDERS: PCP Physician Assistant; Visit Provider Internal Medicine Critical Care Medicine
DX: N20.0 Calculus of kidney (principal); R82.994 Hypercalciuria
CPT/HCPCS: 99204

== ENCOUNTER → 2024-12-23 14:18 | Outpatient (BNVA) | payer OTHER, SELFPAY | PROVIDERS: PCP Physician Assistant; Visit Provider Internal Medicine Critical Care Medicine | DX: N20.0 Calculus of kidney (principal); N18.30 Chronic kidney disease, stage 3 unspecified; R82.994 Hypercalciuria | CPT/HCPCS: 99202 ==

== ENCOUNTER 2024-12-28 09:00 | Outpatient (REF) | payer OTHER, SELFPAY ==
--- OUTSIDE RECORDS SUMMARY | 2024-12-28 09:27 | XMS_ITS | Clinical Summary ---
Author Organization [facility] Address [address] [place] [address] Care Team Providers Care Bartender Server Name Role Phone Roverto Chauhan MD Primary Care Provider [phone] Social History Tobacco Use Types Packs/Day Years [...] patient's age to complete this topic [facility] [place] [id number] BC[place] FEE FOR SERVICE PPO * Guarantor: REINA ESCRE[employer] Account Type Relation to Patient Date of Phone Billing Address [employer] [phone] (Home) [phone] (Work) [employer] ATTN: A/P [address] [address] [place] [address] Care Teams Bartender Server Relationship Specialty Start Date End Date Roverto Chauhan MD [address] [place] [address] PCP - General 06/03/08
[2024-12-28 11:54] LABS: Calcium 9.8 mg/dL (8.4-10.2); Phosphorus 2.8 mg/dL (2.7-4.5)
[2024-12-28 11:56] LABS: Vitamin D 25-OH Total 112.4 ng/mL (>30)
[2024-12-28 14:46] LABS: Parathyroid Hormone Intact 59.7 pg/mL (8.7-77.1)
== END 2024-12-28 09:01 | disposition home or self-care (01) ==
LOC: HO.10HDL 09:00
PROVIDERS: Visit Provider Internal Medicine Critical Care Medicine
DX: N13.30 Unspecified hydronephrosis (principal); N20.0 Calculus of kidney; R82.994 Hypercalciuria
CPT/HCPCS: 36415; 82306; 82310; 83970; 84100

== ENCOUNTER 2025-03-09 06:21 | Emergency (ER) | payer OTHER, SELFPAY ==
--- NOTE | ~2025-03-09 | CT_ITS ---
EXAMINATION: CT ABDOMEN AND PELVIS WITHOUT CONTRAST CLINICAL INFORMATION: 5 pain, nausea, vomiting. COMPARISON: 09/09/2024. 07/06/2024. TECHNIQUE: Multidetector volumetric imaging was performed from the superior aspect of the liver through the pubic symphysis. Sagittal and coronal reformatted images were obtained on the technologist's workstation. This CT examination was performed using dose optimization techniques as appropriate, variously including the following: *Automated exposure control *Adjustment of mA and/or kV according to patient size (this includes techniques or standardized protocols for targeted exams where dose is matched to indication/reason for exam; i.e. extremities or head) *Use of iterative reconstruction technique FINDINGS: LUNG BASES: Lung bases are clear bilaterally. There are no effusions. The heart size is normal. Normal GE junction. LIVER, GALLBLADDER, AND BILIARY TREE: Liver is enlarged. There is diffuse low-attenuation to the fatty parenchyma in keeping with fatty infiltration. There is mild focal fatty sparing abutting the gallbladder fossa. There is no suspicious focal lesion. The gallbladder is unremarkable with no evidence of radiopaque gallstones, gallbladder wall thickening, or obvious pericholecystic inflammatory changes. PANCREAS: Unremarkable. SPLEEN: Unremarkable. ADRENAL GLANDS: Unremarkable. KIDNEYS AND URETERS: LEFT KIDNEY: There is mild left hydronephrosis and hydroureter secondary to a 3 mm calculus seen at the level of the UVJ. The left kidney is otherwise normal. There is mild periureteral and perirenal stranding. RIGHT KIDNEY: Normal. Right ureter is nondilated. BLADDER: Otherwise normal in appearance. GASTROINTESTINAL TRACT: Small bowel and large bowel are normal in appearance without wall thickening, inflammation, or abnormal dilatation. A normal appendix is visualized. ABDOMINAL WALL: There is a small fat-containing umbilical hernia. LYMPH NODES: None enlarged by size criteria. Normal. VASCULAR: Normal. PELVIC VISCERA: The prostate and seminal vesicles are unremarkable. OSSEOUS STRUCTURES: No suspicious lytic or blastic bone lesions. CT/CT abdomen pelvis wo IV con IMPRESSION: 1. Mild left hydronephrosis and hydroureter secondary to a 3 mm obstructing calculus at the left ureterovesical junction. 2. Hepatomegaly and diffuse fatty infiltration of the liver. Electronically signed by: Tiburcio Moser MD 03/09/2025 08:55 AM EDT
[2025-03-09 06:23] VITALS: BP 148/100; PULSE 69; RESP 20; TEMP 36.1; O2SAT 98; BMI 34.5
[2025-03-09 06:43] LABS: MANUAL DIFF FLAG NO
[2025-03-09 06:45] LABS: Hematocrit 43.3 % (42.0-52.0); Hemoglobin 15.1 g/dl (14.0-18.0); Imm Gran Abs Auto 0.13 X10*3/uL (0.00-0.03); Imm Gran Pct Auto 1.1 % (0.0-0.4); Lymphocytes Absolute Auto 2.6 X10*3/uL (1.2-4.9); Mean Corpuscular HGB Conc 34.9 g/dl (31.0-36.0); Mean Corpuscular Hemoglobin 28.5 pg (27.0-33.0); Mean Corpuscular Volume 81.7 fL (80.0-98.0); NRBC Abs Auto 0.000 X10*3/uL (0.0-0.012); NRBC Pct Auto 0.0 /100WBC (0.0-0.2); Platelet Count 300 X10*3/uL (160-400); Red Blood Count 5.30 X10*6/uL (4.60-5.80); White Blood Count 12.4 X10*3/uL (4.8-10.8)
[2025-03-09 06:55] LABS: Appearance Urine Clear; Glucose Urine UA Negative (Negative); PH 5.5 (5.0-9.0); Specific Gravity - Urine 1.020 (1.005-1.025); UMIC TRIGGER UACC YES
[2025-03-09 07:00] LABS: Anion Gap 15 (12-20); Blood Urea Nitrogen 15 mg/dL (9-16); Calcium 9.4 mg/dL (8.4-10.2); Carbon Dioxide 21 mmol/L (22-29); Chloride 107 mmol/L (96-108); Creatinine Clr Calc Pharmacy 105.4; Estimated Glomerular Filt Rate > 60; Potassium 4.2 mmol/L (3.3-5.1); Sodium 139 mmol/L (135-145)
[2025-03-09 07:32] VITALS: BP 145/93; PULSE 58; RESP 18; TEMP 36.6; O2SAT 99
--- OUTSIDE RECORDS SUMMARY | 2025-03-09 07:39 | XMS_ITS | Clinical Summary ---
Author Organization [facility] Address [address] [place] [address] Care Team Providers Care Director Corporate Compliance Name Role Phone Roverto Chauhan MD Primary Care Provider [phone] Social History Tobacco Use Types Packs/Day Years [...] Vaccine (2023-2 5 season) 2024 Influenza (#1) 2025 Zoster (Shingrix) (1 of 2) 12/07/2037 HPV Vaccine (No Doses Required) Completed Hep A Aged Out No longer eligi ble based on patient's age to complete this topic Hib Aged Out No longer eligi ble based on patient's age to complete this topic Meningococcal ACWY Aged Out No longer eligible based on patient's age to complete this topic Pneumococcal Aged Out No longer eligi ble based on patient's age to complete this [place] [id number] BCBS FEE FOR SERVICE PPO * Guarantor: REINA ESCREEN Account Type Relation to Patient Date of Phone Billing Address [employer] [phone] 24 (Home) [phone] (Work) [employer] ATTN: A/P [address] [address] [place] [address] Care Teams Director Corporate Compliance Relationship Specialty Start Date End Date Roverto Chauhan MD [address] [place] [address] PCP - General 06/03/08
--- OUTSIDE RECORDS SUMMARY | 2025-03-09 07:39 | XMS_ITS | Encounter Summary ---
Author Organization [facility] Address [address] [facility] [address] [place] [id number] Phone Care Team Providers Care Occupational Therapy Program Director Name Role Phone Niels Benedict Primary Care Provider [phone] Encounter Details Date Type Department Care Team ([facility] st Contact Info) Description 01/18/2025 Procedure [facility]oscopy Admitting Dept Virtual Department [address] [place] [address] Social History Tobacco Use Types Packs/Day Years Used Date Smoking Tobacco: Former Cigarettes 0.3 5.6 S tarted: 2020 Smokeless Tobacco: Never Alcohol Use Standard Drinks/Week Comments Yes 0 (1 standard drink = 0.6 oz pur e alcohol) 2/month Education Answer Date Recorded Are you interested in more education? Not on yokasta e 11/28/2022 Are you concerned about learning? Not on file 11/28/2022 No 11/28/2022 No 11/28/2022 Digital Access Answer Date Recorded No 12/29/2022 No 12/29/2022 Reliable internet access at home? Not on file 12/29/2022 Device with a working camera? Not on file Intimate Partner Violence Answer Date R ecorded Are you denied basic needs s uch as food, clothing, or medical care? No 01/11/2025 In the past 12 months have y ou been in a relationship with a person who hurts, threatens, or tries to control you? No 01/11/2025 Are you denied basic needs s uch as food, clothing, or medical care? No 01/11/2025 In the past 12 months have y ou been in a relationship with a person who hurts, threatens, or tries to control you? No 01/11/2025 Sex and Gender Information Value Date Recorded Sex Assigned at Male 04/06/2019 5:55 AM EDT Legal Sex Male 9:09 PM EDT Gender Identity Male 04/06/2019 5:55 AM EDT Sexual Orientation Straight 04/06/2019 5: 55 AM EDT documented as of this encounter Plan of Treatment Not on file documented as of this encounter Visit Diagnoses Not on filedocumented in this encounter Care Teams Occupational Therapy Program Director Relationship Specialty Start Date End Date Niels Benedict DO [email or web address] PCP - General 05/19/17 documented as of this encounter Additional Source Comments The information contained in this document represents components of the legal health record. It is not the complete legal health record.[facility]
--- NOTE | 2025-03-09 07:41 | PC.NURSE ---
patient a&ox3, iv inserted, labs previously drawn, vss, pt c/o 05/12 lt flank/abd pain- states he has a history of kidney stones, pt also stating he has nausea, call patel within reach, pt awaiting evaluation by provider, plan of care ongoing
--- NOTE | 2025-03-09 08:05 | ED_ITS ---
HPI - General Adult General Chief complaint: Back Pain/Injury Stated complaint: kidney stones? Time Seen by Provider: 03/09/25 08:05 Source: patient Mode of arrival: ambulatory Limitations: no limitations History of Present Illness ED Provider: Helene Chavez PA-C HPI narrative: Patient is a 39 year old assigned male at with a history of kidney stones presenting to the emergency department today with left flank pain and an episode of vomiting. Patient states that he woke up this morning at 0300 with sharp left sided flank pain and immediately vomited. Patient states that with the pain he had a brief episode of blurry vision but that has since resolved. Patient denies any dizziness, lightheadedness, abdominal pain, nausea, fever, chills, current blurry vision, double vision, loss of vision, chest pain, difficulty breathing, shortness of breath, back pain, night sweats, pain with urination, increased urinary frequency, increased urinary urgency, blood in his urine or stool, syncope or a near syncopal episode, recent trauma or falls, bowel incontinence, bladder incontinence, or any other complaints at this time. Onset (ago): hour(s) Location: left (flank) Relieving factors: none Exacerbating factors: none Associated symptoms: nausea/vomiting Treatments prior to arrival: none Related Data Home Medications ?Medication ?Instructions ?Recorded ?Confirmed sertraline 50 mg tablet 50 mg PO DAILY 04/25/2412/02 ustekinumab 90 mg/mL subcutaneous 90 mg subcut Q8W 05/2612/23/24 syringe (Stelara) hydrocortisone 2.5 % topical cream topical DAILY 09/2212/23/24 with perineal applicator dextroamphetamine-amphetamine 10 10 mg PO DAILY 12/23/24 mg tablet (Adderall) Previous Rx's ?Medication ?Instructions ?Recorded pyridoxine (vitamin B6) 100 mg 100 mg PO DAILY #90 tab s 12/15/24 tablet hydrochlorothiazide 25 mg tablet 25 mg PO DAILY 30 day s #30 tabs 12/23/24 sodium citrate-citric acid 500 10 ml PO BID #1,200 mL 12/27/24 mg-334 mg/5 mL oral solution oxycodone 5 mg tablet 5 mg PO .q8-q12h PRN pain #9 tabs 03/09/25 tamsulosin 0.4 mg capsule 0.4 mg PO DAILY #7 caps 02/24 Allergies Allergy/AdvReac Type Severity Reaction Status Date / Time Sulfa (Sulfonamide Allergy Unknown Verified 03/09/25 06:24 Antibiotics) Review of Systems 2 Constitutional: Constitutional: Reports no additional constitutional complaints, Denies chills, Denies fever(s) and Denies night sweats Eyes: Eyes: Reports no additional eye complaints, Reports blurry vision (briefly during episode of pain - now resolved), Denies change in vision, Denies diplopia, Denies eye discharge, Denies loss of vision and Denies eye pain ENT: Denies dizziness Cardiovascular: Cardiovascular: Reports no additional cardiovascular complaints, Denies chest pain, Denies lightheadedness, Denies Loss of Consciousness and Denies dyspnea Respiratory: Respiratory: Reports no additional respiratory complaints and Denies dyspnea Gastrointestinal: Gastrointestinal: Reports no additional gastrointestinal complaints, Denies abdominal pain, Denies melena, Denies hematochezia, Denies change in bowel habits, Denies change in stool character, Denies nausea and Reports vomiting (1 episode prior to arrival) Genitourinary: Genitourinary: Reports no additional male genitourinary complaints, Denies hematuria, Denies oliguria, Denies difficulty urinating, Denies dysuria, Reports flank pain (left), Denies urinary frequency, Denies urinary hesitancy, Denies urinary incontinence and Denies urinary urgency Musculoskeletal: Musculoskeletal: Reports no additional musculoskeletal complaints, Denies numbness and Denies tingling Neurologic: Denies dizziness, Denies loss of vision, Denies numbness and Denies tingling Psychiatric: Psychiatric: Reports no additional psychiatric complaints Endocrine: Endocrine: Reports no additional endocrine complaints Hematologic/Lymphatic: Hematologic/Lymphatic: Reports no additional hematologic/lymphatic complaints Allergic/Immunologic: Allergic/Immunologic: Reports no additional allergic/immunologic complaints [facility] Past Medical History Attestation statement: The following information was validated with the patient. Source: old records reviewed and nursing notes reviewed Medical History Kidney stone Depressive disorder Colitis Melanocytic nevus Muscle pain Sleep apnea Adult attention deficit hyperactivity disorder Lyme disease Hemorrhoids Migraine Anemia Varicella History of depression Ulcerative colitis Surgical History History of ureteroscopy (~09/2024) History of colonoscopy Social History Social History Are you a primary caretaker grounds to a significant other at home: No Do you presently have visiting nurse or other home services: No Alcohol intake: current Alcohol intake frequency: holidays/special occasions only Patient Tobacco Use Status: Current everyday Tobacco user Tobacco use type: Smokeless Tobacco Second Hand Smoke Exposure: No Physical Exam ED Vital Signs: Vital Signs - 24 hr 03/09/25 06:23 03/09/25 07:32 03/09/25 09:26 Temperature 97 F 97.8 F 98.1 F Pulse Rate 69 58 73 Respiratory Rate 20 18 16 Blood Pressure 148/100 H 145/93 H 128/77 Pulse Oximetry 98 99 99 Oxygen Delivery Method Room Air Room Air Room Air BMI result Body Mass Index 34.5 Const General: cooperative, no acute distress, alert and awake Nutritional Appearance: well nourished Orientation/consciousness: patient oriented x3 HENMT Head: Yes normal to inspection and Yes atraumatic Ears: hearing grossly normal bilaterally and external ears normal General nose exam: Normal external nose present, no nasal discharge noted and no epistaxis Face and sinus: Yes normal facial exam, No abrasion and No laceration Mouth: Normal oral and palatal mucosa present, no drooling and no muffled voice Eyes General: appearance normal, both eyes and all related structures Periorbital: periorbital findings normal Eyelids: Yes eyelids normal Conjunctivae: conjunctivae normal Pupils: Equal, round and reactive pupils present EOM: EOMs intact bilaterally Neck Neck: Yes normal visual inspection, Yes full ROM and Yes no lymphadenopathy Resp Effort & Inspection: normal respiratory effort and able to speak in complete sentences Neuro General: patient oriented x3, moves all extremities and CN's II-XI intact bilaterally Cranial nerves: Yes Equal, round and reactive pupils present Cognition (Neuro): normal cognition Extrem General: Yes normal to inspection, Yes full ROM and Yes capillary refill normal Psych Appearance: grossly normal Mental Status: mental status grossly normal Affect: normal affect Attitude: cooperative Thought process: Normal thought process present Thought content: Normal thought content present Insight: Good insight present (Psych) Medications Administered Discontinued Medications Generic Name Dose Route Start Last Admin Trade Name Freq PRN Reason Stop Dose Admin Sodium Chloride 1,000 mls @ 999 mls/hr 03/09/25 08:15 03/09/25 09:15 Ns IV 03/09/25 09:15 Infused .Q1H1M COOKIE Infusion Ketorolac Tromethamine 15 mg 03/09/25 08:06 03/09/25 08:14 Ketorolac Tromethamine 15 Mg/Ml Vial IVPUSH 03/09/25 08:07 15 mg ONCE ONE Administration Ondansetron HCl 4 mg 03/09/25 08:06 03/09/25 08:14 Ondansetron Hcl 4 Mg/2 Ml Vial IVPUSH 03/09/25 08:07 4 mg ONCE ONE Administration Medical Decision Making Medical Decision Making [facility] Narrative: Patient is a 39 year old assigned male at with a history of kidney stones presenting to the emergency department today with left flank pain and an episode of vomiting. Patient's physical exam was unremarkable. Patient's blood work showed an elevated WBC count of 12.4 but otherwise unremarkable. Patient's urine showed no acute process. Patient's CT abd/pelvis showed mild left hydronephrosis and hydroureter secondary to a 3mm obstructing calculus at the left UVJ. Patient's clinical presentation is most consistent with a left sided obstructing kidney stone - given the size and the rest of the patient's reassuring work up, will have the patient take PO Tamsulosin and follow up outpatient with the urology team. I did discuss using prednisone with the patient to promote spontaneous stone passing and he declined stating he does not like prednisone. I explained my physical exam findings as well as all test results to the patient. I answered all questions asked by the patient. Patient received IV fluids and toradol which, upon re-evaluation, he stated it helped his symptoms significantly. I stressed the importance of the patient taking [his/her/their] medication as directed (either prescribed or as the over the counter packaging recommends). I stressed the importance of the patient following up with his primary care provider and the urology team. I stressed the importance of the patient returning to the emergency department immediately if his symptoms were to worsen or if he were to develop any dizziness, shortness of breath, difficulty breathing, chest pain, blurry vision, loss of vision, nausea, vomiting, abdominal pain, fever, chills, back pain, or any other complaints. Patient verbalized agreement and understanding with this treatment plan and discharge. Differential Diagnosis Differential Diagnoses: The differential diagnosis associated with the presentation includes Flank pain Obstructing kidney stone Kidney stone Cystitis Admission/Observation Consideration of admission/observation: Escalation of care including admission/observation considered Patient would have been admitted to the hospital had his work up had any findings where hospital admission was appropriate and his clinical presentation warranted hospital admission. Lab Data [facility] Lab Attestation statement: I reviewed the patient's lab results. My interpretation of these results are in the [facility] Rationale portion of this note. 03/09/25 06:33 03/09/25 06:33 Labs: Lab Results 03/09/25 Range/Units 06:33 WBC 12.4 H (4.8-10.8) X10*3/uL RBC 5.30 (4.60-5.80) X10*6/uL Hgb 15.1 (14.0-18.0) g/dl Hct 43.3 (42.0-52.0) % MCV 81.7 (80.0-98.0) fL MCH 28.5 (27.0-33.0) pg MCHC 34.9 (31.0-36.0) g/dl RDW 13.2 (11.0-16.0) % Plt Count 300 (160-400) X10*3/uL MPV 9.8 (9.4-12.4) fL Immature Gran % (Auto) 1.1 H (0.0-0.4) % Neut % (Auto) 68.3 (45-73) % Lymph % (Auto) 20.8 (20-40) % Cross % (Auto) 8.4 (2-11) % Eos % (Auto) 1.0 (0-4) % Baso % (Auto) 0.4 (0-2) % Lymph # (Auto) 2.6 (1.2-4.9) X10*3/uL Cross # (Auto) 1.0 (0.1-1.2) X10*3/uL Eos # (Auto) 0.1 (0.0-0.4) X10*3/uL Baso # (Auto) 0.1 (0.0-0.2) X10*3/uL Abs Immat Gran (auto) 0.13 H (0.00-0.03) X10*3/uL Absolute Neuts (auto) 8.5 H (2.0-8.3) x10*3/uL Absolute Nucleated RBC 0.000 (0.0-0.012) X10*3/uL Nucleated RBC % (auto) 0.0 (0.0-0.2) /100WBC Sodium 139 (135-145) mmol/L Potassium 4.2 (3.3-5.1) mmol/L Chloride 107 (96-108) mmol/L Carbon Dioxide 21 L (22-29) mmol/L Anion Gap 15 (12-20) BUN 15 (9-16) mg/dL Creatinine 1.08 (0.5-1.4) mg/dL Estim Creat Clear Calc 105.4 Estimated GFR > 60 Random Glucose 146 H (60-115) mg/dL Calcium 9.4 (8.4-10.2) mg/dL Urine Color Yellow Urine Appearance Clear Urine pH 5.5 (5.0-9.0) Ur Specific [place] 1.020 (1.005-1.025) Urine Protein Negative (Neg-Trace) mg/dL Urine Glucose (UA) Negative (Negative) mg/dL Urine Ketones Negative (Negative) mg/dL Urine Blood Small (1+) H (Negative) Urine Nitrite Negative (Negative) Ur Leukocyte Esterase Negative (Negative) Urine RBC 0-2 (0-2) /HPF Urine WBC 0-5 (0-5) /HPF Ur Squamous Epith Cells 0-2 (0-2) /HPF Urine Bacteria None Seen (None Seen) Hyaline Casts 0-2 (0-2) /LPF Independent Interpretation I performed an independent interpretation of an: CT Scan Interpretation: My interpretation is in agreement with the radiologist's impression of this imaging study. L Report Number: [id number]: Total DLP = 616.00 mGy-cm EXAMINATION: CT ABDOMEN AND PELVIS WITHOUT CONTRAST CLINICAL INFORMATION: 5 pain, nausea, vomiting. COMPARISON: 09/09/2024. 07/06/2024. TECHNIQUE: Multidetector volumetric imaging was performed from the superior aspect of the liver through the pubic symphysis. Sagittal and coronal reformatted images were obtained on the technologist's workstation. This CT examination was performed using dose optimization techniques as appropriate, variously including the following: *Automated exposure control *Adjustment of mA and/or kV according to patient size (this includes techniques or standardized protocols for targeted exams where dose is matched to indication/reason for exam; i.e. extremities or head) *Use of iterative reconstruction technique FINDINGS: LUNG BASES: Lung bases are clear bilaterally. There are no effusions. The heart size is normal. Normal GE junction. LIVER, GALLBLADDER, AND BILIARY TREE: Liver is enlarged. There is diffuse low- attenuation to the fatty parenchyma in keeping with fatty infiltration. There is mild focal fatty sparing abutting the gallbladder fossa. There is no suspicious focal lesion. The gallbladder is unremarkable with no evidence of radiopaque gallstones, gallbladder wall thickening, or obvious pericholecystic inflammatory changes. PANCREAS: Unremarkable. SPLEEN: Unremarkable. ADRENAL GLANDS: Unremarkable. KIDNEYS AND URETERS: LEFT KIDNEY: There is mild left hydronephrosis and hydroureter secondary to a 3 mm calculus seen at the level of the UVJ. The left kidney is otherwise normal. There is mild periureteral and perirenal stranding. RIGHT KIDNEY: Normal. Right ureter is nondilated. BLADDER: Otherwise normal in appearance. GASTROINTESTINAL TRACT: Small bowel and large bowel are normal in appearance without wall thickening, inflammation, or abnormal dilatation. A normal appendix is visualized. ABDOMINAL WALL: There is a small fat-containing umbilical hernia. LYMPH NODES: None enlarged by size criteria. Normal. VASCULAR: Normal. PELVIC VISCERA: The prostate and seminal vesicles are unremarkable. OSSEOUS STRUCTURES: No suspicious lytic or blastic bone lesions. CT/CT abdomen pelvis wo IV con IMPRESSION: 1. Mild left hydronephrosis and hydroureter secondary to a 3 mm obstructing calculus at the left ureterovesical junction. 2. Hepatomegaly and diffuse fatty infiltration of the liver. Electronically signed by: Tiburcio Moser MD 03/09/2025 08:55 AM EDT Dictated By: Tiburcio Moser MD Signed By: Electronically signed by Tiburcio Moser MD 03/09/25 0844 Radiology Impression Discussion of test interpretation with radiology: I have reviewed the radiologist's reading. Critical Care Time Critical Care Time Critical Care Time: Yes Total Critical Care Time: 34 Attestation: I spent 34 minutes of Critical Care Time with this patient. This does not include time spent on separately reported billable procedures. Discharge Plan Discharge Clinical Impression: Kidney stone, Hydronephrosis Patient Disposition: Home, Self-Care Instructions: Kidney Stones (ED), Hydronephrosis (ED) Additional Instructions: Your CT scan showed a mild left hydronephrosis and hydroureter secondary to a 3mm obstructing stone - this is a small stone and will likely pass on it's own. Take your medication as prescribed and drink plenty of fluids. IF you are prescribed medications and/or you are taking over the counter medications - it is very important you continue to do so as prescribed / directed unless told otherwise. Follow up with your primary care provider and the urology team. Return to the emergency department immediately if your symptoms worsen or if you develop any numbness, tingling, dizziness, shortness of breath, difficulty breathing, chest pain, blurry vision, loss of vision, nausea, vomiting, abdominal pain, fever, chills, back pain, or any other complaints. Please see the information below about our Patient Portal. If you are not yet enrolled in the [facility] Patient Portal, you will receive an enrollment email invitation following your visit to any [facility] setting. You may also self-enroll in the Patient Portal by visiting our website: [email or web address] The following information is required to access the Patient Portal: - Your [facility] Medical Record Number - Your personal home email address (must match what is in your electronic medical record, Registration staff can assist with this) - Name - Date of Capabilities of the Patient Portal: - Message some providers - View upcoming appointments - Access your health summary, medical history, and visit history - View current conditions and allergies - View procedure and lab results - View your medications, including guidelines, side effects, and precautions - Complete pre-appointment questionnaires requested by your provider - Ready summary reports of your office visits and procedures To access the Patient Portal Mobile Sofiya, follow these directions: - Search [facility] in the Sofiya Store or Google Play Store - Download the Sofiya - Search for [facility] - Enter your login/password Prescriptions: New tamsulosin 0.4 mg capsule 0.4 mg PO DAILY Qty: 7 0RF No Action sodium citrate-citric acid 500-334 mg/5 mL solution 10 ml PO BID Qty: 1200 3RF oxycodone 5 mg tablet 5 mg PO .q8-q12h PRN (Reason: pain) Qty: 9 0RF Rx Instructions: Partial Fill upon patient request. Stelara 90 mg/mL syringe 90 mg subcut Q8W dextroamphetamine-amphetamine [Adderall] 10 mg tablet 10 mg PO DAILY hydrochlorothiazide 25 mg tablet 25 mg PO DAILY 30 Days Qty: 30 5RF sertraline 50 mg tablet 50 mg PO DAILY hydrocortisone 2.5 % cream with perineal applicator topical DAILY pyridoxine (vitamin B6) 100 mg tablet 100 mg PO DAILY Qty: 90 3RF Referrals: [facility] [Provider Group, Urology] Referral Note: [facility] will be contacting you within 2 business days from today - during this call they will inform you when your follow up appointment will be scheduled. If you have NOT received a call from them within 2 business days, call the office at [phone]. Annette Clarke PA [Primary Care Provider, Internal Medicine] Interventions: ED Discharge Assessment Last Done: 03/09/25 09:26 Discharge Date/Time: 03/09/25 09:27 Print Language: Kiswahili
--- NOTE | 2025-03-09 08:16 | PC.NURSE ---
pt medicated per order
[2025-03-09 09:26] VITALS: BP 128/77; PULSE 73; RESP 16; TEMP 36.7; O2SAT 99
== END 2025-03-09 09:27 | disposition home or self-care (01) ==
PROVIDERS: Emergency Provider Emergency Medicine; PCP Physician Assistant
DX: N20.0 Calculus of kidney (principal); N13.30 Unspecified hydronephrosis
CPT/HCPCS: 36415; 74176; 80048; 81001; 85025; 96361; 96374; 96375; 99284; 99285; J1885; J2405

== ENCOUNTER → 2025-03-09 08:06 | Outpatient (BNV) | payer OTHER, SELFPAY | PROVIDERS: PCP Physician Assistant; Visit Provider Radiology Diagnostic Radiology | DX: N13.2 Hydronephrosis with renal and ureteral calculous obstruction (principal) | CPT/HCPCS: 74176 ==

== ENCOUNTER 2025-07-10 09:55 | Outpatient (REF) | payer OTHER, SELFPAY ==
[2025-07-10 14:11] LABS: MANUAL DIFF FLAG NO
[2025-07-10 14:19] LABS: Hematocrit 47.1 % (42.0-52.0); Hemoglobin 15.5 g/dl (14.0-18.0); Imm Gran Abs Auto 0.12 X10*3/uL (0.00-0.03); Imm Gran Pct Auto 0.9 % (0.0-0.4); Lymphocytes Absolute Auto 2.5 X10*3/uL (1.2-4.9); Mean Corpuscular HGB Conc 32.9 g/dl (31.0-36.0); Mean Corpuscular Hemoglobin 28.0 pg (27.0-33.0); Mean Corpuscular Volume 85.0 fL (80.0-98.0); NRBC Abs Auto 0.000 X10*3/uL (0.0-0.012); NRBC Pct Auto 0.0 /100WBC (0.0-0.2); Platelet Count 330 X10*3/uL (160-400); Red Blood Count 5.54 X10*6/uL (4.60-5.80); White Blood Count 12.9 X10*3/uL (4.8-10.8)
[2025-07-10 14:46] LABS: Alanine Aminotransferase 79 U/L (0-40); Albumin Level 4.6 g/dL (3.5-5.0); Alkaline Phosphatase 125 U/L (39-117); Anion Gap 13 (12-20); Aspartate Amino Transferase 44 U/L (5-37); Blood Urea Nitrogen 19 mg/dL (9-16); Calcium 9.9 mg/dL (8.4-10.2); Carbon Dioxide 29 mmol/L (22-29); Chloride 102 mmol/L (96-108); Cholesterol 163 mg/dL (<200); Estimated Glomerular Filt Rate > 60; HDL Cholesterol 27 mg/dL (>40); Potassium 3.6 mmol/L (3.3-5.1); Sodium 140 mmol/L (135-145); Total Protein 7.8 g/dL (6.5-8.0); Triglycerides 185 mg/dL (<150)
== END 2025-07-10 09:56 | disposition home or self-care (01) ==
LOC: HO.MANLDS 09:55
PROVIDERS: Visit Provider Physician Assistant
DX: Z00.00 Encounter for general adult medical examination without abnormal findings (principal)
CPT/HCPCS: 36415; 80053; 80061; 83036; 85025

== ENCOUNTER 2025-07-24 12:19 | Outpatient (REF) | payer OTHER, SELFPAY ==
--- OUTSIDE RECORDS SUMMARY | 2025-07-24 15:33 | XMS_ITS | Encounter Summary ---
Author Organization [facility] Address [address] [facility] [address] [place] [phone] Phone Care Team Providers Care Feed Handler Name Role Phone Niels Benedict DO Primary Care Provider [phone] Niels Benedict DO Primary Care Provider [phone] Encounter Details Date Type Department Care Team ([facility] st Contact Info) Description 01/18/2025 Procedure Pass [facility] Endoscopy Admitting Dept Virtual Department [address] [place] [address] Social History Tobacco Use Types Packs/Day Years Used Date Smoking Tobacco: Former Cigarettes 0.3 6 S tarted: 2020 Smokeless Tobacco: Never Alcohol [...] Diagnoses Not on filedocumented in this encounter Additional Health Concerns Infection Onset Date Last Indicated Resolved Time Resp-Risk 06/30/2025 06/30/2025 07/11/2025 7:06 PM EST documented as of this encounter Care Teams Feed Handler Relationship Specialty Start Date End Date Niels Benedict DO PCP - General 05/19/17 06/29/25 Niels Benedict DO [address] [place] [id number] PCP - General Internal Medicine 06/30/25 documented as of this encounter Additional Source Comments The information contained in this document represents components of the legal health record. It is not the complete legal health record.[facility]
--- OUTSIDE RECORDS SUMMARY | 2025-07-24 15:33 | XMS_ITS | Encounter Summary ---
Author Organization [facility] Address [address] [facility] [address] [place] [address] Phone Care Team Providers Care Market Development Manager Name Role Phone Niels Benedict DO Primary Care Provider [phone] Niels Benedict DO Primary Care Provider [phone] Encounter Details Date Type Department Care Team (Latest Contact Info) Description 06/01/2023 Transcribe Orders [facility] [address] [place] [address] Monisha Villegas NP [address] [place] [address] Ulcerative chronic pancolitis with rectal bleeding (Primary Dx) Social History Tobacco Use Types Packs/Day Years Used Date Smoking Tobacco: Every Day Cigarettes Smokeless Tobacco: Never Alcohol Use Standard Drinks/Week Comments Yes 0 (1 standard drink = 0.6 oz pur e alcohol) Education Answer Date Recorded Are you interested in more education? Not on yokasta e 11/28/2022 Are you concerned about learning? Not on file 11/28/2022 No 11/28/2022 No 11/28/2022 Digital Access Answer Date Recorded No 12/29/2022 No 12/29/2022 Reliable internet access at home? Not on file 12/29/2022 Device with a working camera? Not on file Sex and Gender Information Value Date Recorded Sex Assigned at Male 04/06/2019 5:55 AM EDT Legal Sex Male 9:09 PM EDT Gender Identity Male 04/06/2019 5:55 AM EDT Sexual Orientation Straight 04/06/2019 5: 55 AM EDT documented as of this encounter Plan of Treatment Not on file documented as of this encounter Results * C-Reactive Protein (06/01/2023 9:59 AM EDT) C REACTIVE PROTEIN 3.3 0.0 - 4.0 mg/L [facility] Blood 06/01/2023 9:59 AM EDT 06/01/2023 10:03 AM EDT us Monisha Villegas NP LAB BLOOD BKR ORDERABLES Final Result [address] [address] * (ABNORMAL) Comprehensive metabolic panel (06/01/2023 9:59 AM EDT) SODIUM 143 133 - 146 mmol/L [facility] POTASSIUM 3.8 3.3 - 5.1 mmol/L [facility] CHLORIDE 107 96 - 108 mmol/L [facility] CO2 25 21 - 35 mmol/L [facility] BUN 13 6 - 19 mg/dL [facility] CREATININE 0.90 0.5 - 1.5 mg/dL [facility] GLUCOSE 96 70 - 99 mg/dL [facility] ALBUMIN 4.2 3.9 - 4.8 g/dL [facility] TOTAL PROTEIN 7.6 6.5 - 8.0 g/dL [facility] CALCIUM 9.4 8.4 - 10.3 mg/dL [facility] ALKALINE PHOSPHATASE 130(H) 39 - 117 U/L [facility] TOTAL BILIRUBIN 0.3 0.0 - 1.2 mg/dL [facility] AST 30 0 - 37 U/L [facility] ALT 23 0 - 40 U/L [facility] GLOBULIN 3.4 1 - 4.8 g/dL [facility] EGFR 114 >59 mL/min/1.7 3m2 [facility] Comment:Estimated glomerular filtration rate calculated using the CKD-EPI refit equation. ANION GAP 15 10 - 20 mmol/L [facility] Blood 06/01/2023 9:59 AM EDT 06/01/2023 10:03 AM EDT us Monisha Villegas NP LAB BLOOD BKR ORDERABLES Final Result Performing Organization Address [facility] Co de Phone Number [address] [address] * (ABNORMAL) CBC (06/01/2023 9:59 AM EDT) [facility] WBC 9.65 4.00 - 11.00 K/uL [facility] RBC 4.69 4.23 - 5.82 M/uL [facility] HGB 9.6(L) 13.4 - 17.5 g/dL [facility] HCT 34.2(L) 37.0 - 51.0 % [facility] PLT 468(H) 140 - 430 K/uL [facility] MCV 72.9(L) 78.0 - 97.0 fL [facility] MCH 20.5(L) 25.0 - 33.0 pg [facility] MCHC 28.1(L) 32.0 - 36.0 g/dL [facility] RDW 16.1(H) 11.0 - 15.0 % [facility] MPV 11.0 8.4 - 12.8 fl [facility] Blood 06/01/2023 9:59 AM EDT 06/01/2023 10:03 AM EDT us Monisha Villegas NP LAB BLOOD BKR ORDERABLES Final Result Performing Organization Address [facility] Co de Phone Number [address] [address] documented in this encounter Visit Diagnoses Diagnosis Ulcerative chronic pancolitis with rectal bleeding- Primary documented in this encounter Additional Health Concerns Infection Onset Date Last Indicated Resolved Time Resp-Risk 06/30/2025 06/30/2025 07/11/2025 7:06 PM EST documented as of this encounter Care Teams Market Development Manager Relationship Specialty Start Date End Date Niels Benedict DO [email or web address] PCP - General 05/19/17 06/29/25 Niels Benedict DO [address] [place] [address] [email or web address] PCP - General Internal Medicine 06/30/25 documented as of this encounter Additional Source Comments The information contained in this document represents components of the legal health record. It is not the complete legal health record.[facility]
--- OUTSIDE RECORDS SUMMARY | 2025-07-24 15:33 | XMS_ITS | Clinical Summary ---
Author Organization [facility] Address [address] [place] [address] Care Team Providers Care Horseback Riding Instructor Name Role Phone Roverto Chauhan MD Primary Care Provider [phone] Social History Tobacco Use Types Packs/Day Years [...] - 19+ 3-dose series) 12/07/2006 COVID-19 Vaccine (2024-2 6 season) 2025 Influenza (#1) 2025 Zoster (Shingrix) (1 of [...] complete [place] [address] [employer] FEE FOR SERVICE PPO * Guarantor: [employer] Account Type Relation to Patient Date of Phone Billing Address [employer] [phone] 24 (Home) [phone] 24 (Work) [employer] ATTN: A/P [address] [address] [place] [address] Care Teams Horseback Riding Instructor Relationship Specialty Start Date End Date Roverto Chauhan MD [address] [place] [address] PCP - General 06/03/08
--- OUTSIDE RECORDS SUMMARY | 2025-07-24 15:33 | XMS_ITS | Clinical Summary ---
Author Organization [facility] Address [address] [address] Phone Care Team Providers Care Operator Helper Name Role Phone Christa Coronel Primary Care Provider [phone] Allergies Active Allergy Reactions Criticality Noted Date Comments Bupropion Hcl Anxiety Low 04/10/2023 jittery Sulfa (Sulfonamide Antibiotics) Rash Low 11/2018 Medications diphenoxylate-at ropine (LOMOTIL) 2.5-0.025 mg per tablet take 1 tablet by mouth four times a day as needed 3 Active LORazepam (ATIVAN) 1 MG tablet Take 1 tablet by mouth 2 (two) times a day. Active pantoprazole (PROTONIX) 20 MG tablet Take 1 tablet by mouth daily. 3 Active sertraline (ZOLOFT) 25 MG tablet Take 1 tablet by mouth daily. Active sertraline (ZOLOFT) 50 MG tablet Take 1 tablet by mouth daily. 2 Active dextroamphetamin e-amphetamine (ADDERALL) 5 mg Tab Take 1 tablet by mouth 2 (two) times a day. 3 Active predniSONE (DELTASONE) 50 MG tablet Take 25 mg by mouth daily with breakfast. Active therapeutic multivitamin tablet Take 1 tablet by mouth daily. Active cholecalciferol (VITAMIN D3) 25 MCG (1,000 unit) tablet Take 1,000 Units by mouth daily. Active magnesium glycinate 100 mg magnesium Cap Take by mouth. A ctive ustekinumab (STELARA) 130 mg/26 mL Soln injection Inject into the vein once every 8 weeks. Active inulin (FIBER GUMMIES ORAL) Take 2 tablets by mouth daily. Occasionally second dose Active docusate sodium (COLACE) 100 MG capsule Take 100 mg by mouth 2 (two) times a day as needed for mild constipation. Active hydroCHLOROthiaz bashir 25 MG tablet Take 1 tablet by mouth every morning. 5 Active VITAMIN B-6 100 MG tablet Take 1 tablet by mouth every morning. 5 Active sodium citrate-citric acid (BICITRA) 500-334 mg/5 mL solution Take 10 mL by mouth 2 (two) times a day. 5 Active dextroamphetamin e-amphetamine (ADDERALL) 10 mg Tab tablet Take 1 tablet by mouth 2 (two) times a day. Active STELARA 90 mg/mL Syrg subcutaneous injection syringeIndicatio ns:Ulcerative pancolitis without complication Inject 1 mL (90 mg total) under the skin once every 8 weeks. 1 mL 5 5 Active acetaminophen (TYLENOL) 500 mg capsule as needed. Active ibuprofen (ADVIL) 200 mg capsule as needed. Active bisacodyl (LAXATIVE, BISACODYL,) 5 mg EC tablet TAKE 4 TABLETS ORALLY PATIENT HAS INSTRUCTIONS 1 DAYS Active Active Problems Problem Noted Date Diagnosed Date Ulcerative chronic pancolitis 03/26/2023 Encounters Date Type Department Care Team Description 06/30/2025 3:50 PM EST Office Visit [facility] at [address] [address] Lesia Larkin PA-C Viral respiratory illness (Primary Dx) 05/31/2025 Telephone [facility] [address] [place] [id number] Elsi Sanabria [place] Specialty medication Refill from Last 3 Months Family History Medical History Relation Comments Ulcerative colitis Mother Relation Status Comments Mother Social History Tobacco Use Types Packs/Day Years Used Date Smoking Tobacco: Former Cigarettes 0.3 6 S tarted: 2019 Smokeless Tobacco: Never Alcohol Use Standard Drinks/Week [...] Orientation Straight 04/06/2019 5: 55 AM EDT Last Filed Vital Signs Vital Sign Reading Time Taken Comments Blood Pressure 145/101 06/30/2025 3:44 PM EST Pulse 92 06/30/2025 3:44 PM EST Temperature 36.9 C (98.5 F) 06/30/2025 3:44 PM EST Respiratory Rate 18 06/30/2025 3:44 PM EST Oxygen Saturation 99% 06/30/2025 3:44 PM EST Inhaled Oxygen Concentration - - Weight 104.3 kg (230 lb) 06/30/2025 3:44 PM EST Height 170.2 cm (5' 7 ) 01/11/2025 3:03 PM EDT Body Mass Index 36.02 01/11/2025 3:03 PM EDT Plan of Treatment Health Maintenance Due Date Last Done Comments Adult Td,Tdap Booster 1987 DEPRESSION SCREENING 1999 SMOKING Hx and SMOKELESS TOBACCO SCREENING 12/07/2000 HEPATITIS C SCREENING 12/07/2005 HIV ONE-TIME SCREENING (18-65 YEARS) 12/07/2005 LIPID PANEL 04/15/2024 04/15/2019, 03/18/2018 POTASSIUM LEVEL 06/01/2024 06/01/2023, 04/03, 04/08/2019, Additional history exists INFLUENZA VACCINE (#1) 2025 9, 06/28/2018, 05/30/2015 COVID-19 VACCINE ( season) 2025 09/25/2020 COLOGUARD 06/12/2025 FIT TEST 06/12/2025 FOBT 06/12/2025 SIGMOIDOSCOPY 06/12/2025 VIRTUAL COLONOSCOPY 06/12/2025 SCREENING FOR DIABETES 06/01/2026 06/01/2023 COLONOSCOPY 01/19/2028 01/18/2025 COLORECTAL CANCER SCREENING 01/19/2028 HEPATITIS A VACCINES Aged Out No long er eligible based on patient's age to complete this topic HIB VACCINES Aged Out No longer eligi ble based on patient's age to complete this topic MENINGOCOCCAL VACCINES (ACWY) Aged Out No longer eligible based on patient's age to complete this topic MENINGOCOCCAL VACCINES (B) Aged Out N o longer eligible based on patient's age to complete this topic PNEUMOCOCCAL VACCINES (0-49 years) Aged Out No longer eligible based on patient's age to complete this topic Medical Devices Not on file Procedures Procedure Name Priority Date/Time Associated Diagnosis Comments POCT GROUP A STREPTOCOCCUS, PCR Routine 06/30/2025 3:58 PM EST POCT SARS-COV-2, INFLUENZA A/B, RSV, PCR Routine 06/30/2025 3:56 PM EST ENDOSCOPY, COLON 01/18/2025 7:00 AM EDT COMPREHENSIVE METABOLIC PANEL (CMP) Routine 06/01/2023 9:59 AM EDT Ulcerative chronic pancolitis with rectal bleeding LIPID PANEL Routine 04/15/2019 8:41 AM EDT Routine general medical examination at a health care facility Elevated C-reactive protein (CRP) Asymptomatic microscopic hematuria Leukocytosis, unspecified type from Last 3 Months or Most Recently Relevant to Health Maintenance Results * POCT Group A Streptococcus, PCR (06/30/2025 3:58 PM EST) [facility] Strep A, PCR Not Detected Not Detected 06/30/20 4:26 PM EST [facility] Swab (Throat) 06/30/2025 3:5 8 PM EST 06/30/2025 4:26 PM EST Lesia Larkin PA-C LAB POCT DOCKED DEVICE UNSOL ICTED RESULTS Final Result [facility] [address] [address], [facility] [phone] * POCT SARS-CoV-2, Influenza A/B, RSV, PCR (06/30/2025 3:56 PM EST) [facility] SARS-Cov-2 PCR Negative Negative 06/30/2025 4:37 PM EST [facility] Influenza A Negative Negative 06/30/2025 4:37 PM EST [facility] Influenza B Negative Negative 06/30/2025 4:37 PM EST [facility] RSV PCR Negative Negative 06/30/2025 4:37 PM EST [facility] Swab (Anterior Nares) 06/30/2025 3:56 PM EST 06/30/2025 4:37 PM EST Lesia Larkin PA-C LAB POCT DOCKED DEVICE UNSOL ICTED RESULTS Final Result [facility] [address] [address], [facility] [phone] * ENDOSCOPY, COLON (01/18/2025 7:00 AM EDT) Narrative Transcriptions Macho Yancey MD - 01/18/2025 7:00 AM EDT [facility] Patient Name: Slick Zapata Attending MD:: MACHO YANCEY MD, Procedure Date: 01/18/2025 7:00 AM Date of : 1985 Age: 39 Admit Type: Outpatient Gender: Male Room: [place] [address] Referring MD: CHRISTA COORNEL DO Exam Type: Colonoscopy Indications: Disease activity assessment of chronic ulcerative pancolitis Medications: Monitored Anesthesia Care Procedure: Informed consent was obtained from the patientafter discussion of the indications, limitations, alternatives, benefits, and risks of the procedure. Risks specifically discussed include but are not limited to medication reactions, missed lesions, bleeding, perforation, or the need for emergent surgery. Throughout the procedure, the patient's blood pressure, pulse, end-tidal CO2, and oxygensaturations were monitored continuously. The Olympus adult variable colonoscope [id number] #6 was introduced through the anus and advanced to the terminal ileum, with identification of theappendiceal orifice and IC valve. The colonoscopy was performed without difficulty. The patient tolerated the procedure well. The quality of the bowelpreparation was good. The terminal ileum, ileocecal valve, appendiceal orifice, and rectum werephotographed. Complications: No immediate complications. Estimated blood loss:None. Findings: The terminal ileum appeared normal. This wasbiopsied with a cold forceps for histology. Examination of the right colon was repeated in retroflexion and again in NBI. Retroflexion wasalso performed in the rectum. A 5 mm polyp was found in the cecum. The polyp was sessile. The polyp was removed with a cold snare. Resection and retrieval were complete. A 7 mm polyp was found in the descending colon. The polyp was flat. The polyp was removed with a cold snare. Resection and retrieval were complete. Many diverticula were found in the entire colon. Internal hemorrhoids were found duringretroflexion. The hemorrhoids were mild. Chromoendoscopy was performed (according to [facility] protocol): Once the cecum was reached and after extensive cleaning of the colon, the irrigation solution was changed to methylene blue and themucosa of the colon was irrigated with dye until adequate staining in all parts of the colon was acheived. No mucosal irregularities were seen. No evidence of active inflammatory disease was seen. Four biopsies were taken every 10 cm with a cold forceps from the entire colon for ulcerative colitis surveillance. These biopsy specimens from the entire colon weresent to Pathology. Impression: - The examined portion of the ileum was normal. Biopsied. - One 5 mm polyp in the cecum, removed with a cold snare. Resected and retrieved. - One 7 mm polyp in the descending colon, removedwith a cold snare. Resected and retrieved. - Diverticulosis in the entire examined colon. - Internal hemorrhoids. Recommendation: - Patient has a contact number available for emergencies. The signsand symptoms of potential delayed complications were discussed with the patient. Return to normal activities tomorrow. Written discharge instructions were provided to the patient. - Await pathology results. - Repeat colonoscopy in 1-3 years for surveillance. - Return to GI office as previously scheduled. Macho Yancey MACHO YANCEY MD 01/18/2025 8:41:22 AM This report has been signed electronically. Number of Addenda: 0 Note Initiated On: 01/18/2025 7:00 AM Procedure Code(s): --- Professional --- 67830, Colonoscopy, flexible; with removal of tumor(s), polyp(s), or other lesion(s) by snare technique [id number], 59, Colonoscopy, flexible; with biopsy, single or multiple --- Technical --- 65301, Colonoscopy, flexible; with removal of tumor(s), polyp(s), or other lesion(s) by snare technique [id number], 59, Colonoscopy, flexible; with biopsy, single or multiple CPT copyright 2021 [employer]. All rights reserved. The codes documented in this report are preliminary and upon counselor supervisor reviewmay be revised to meet current compliance requirements. Procedure Date: 01/18/2025 7:00:[address] [place] [id number] us Christa Coronel DO GI PROCEDURE ORDERABLES Final Re sult * (ABNORMAL) Comprehensive metabolic panel (06/01/2023 9:59 AM EDT) SODIUM 143 133 - 146 mmol/L [facility] POTASSIUM 3.8 3.3 - 5.1 mmol/L [facility] CHLORIDE 107 96 - 108 mmol/L [facility] CO2 25 21 - 35 mmol/L [facility] BUN 13 6 - 19 mg/dL [facility] CREATININE 0.90 0.5 - 1.5 mg/dL [facility] GLUCOSE 96 70 - 99 mg/dL [facility] ALBUMIN 4.2 3.9 - 4.8 g/dL [facility] TOTAL PROTEIN 7.6 6.5 - 8.0 g/dL [facility] CALCIUM 9.4 8.4 - 10.3 mg/dL [facility] ALKALINE PHOSPHATASE 130(H) 39 - 117 U/L [facility] TOTAL BILIRUBIN 0.3 0.0 - 1.2 mg/dL [facility] AST 30 0 - 37 U/L [facility] ALT 23 0 - 40 U/L [facility] GLOBULIN 3.4 1 - 4.8 g/dL [facility] EGFR 114 >59 mL/min/1.7 3m2 [facility] Comment:Estimated glomerular filtration rate calculated using the CKD-EPI refit equation. ANION GAP 15 10 - 20 mmol/L [facility] Blood 06/01/2023 9:59 AM EDT 06/01/2023 10:03 AM EDT us Monisha Villegas SECURITY GUARD SUPERVISOR LAB BLOOD BKR ORDERABLES Final Result [address] [address] * (ABNORMAL) Lipid panel (04/15/2019 8:41 AM EDT) HDL 32 mg/dL [facility] Comment: Interpretation <40 mg/dL: Low HDL cholesterol (major risk factor for CHD) Greater than or equal to 60 mg/dL: High HDL cholesterol ( negative risk factor for CHD) HDL - cholesterol is affected by a number of factors, e.g. smoking, excerise, hormones, sex and age. CHOLESTEROL 170 0 - 240 mg/dL [facility] TRIGLYCERIDES 207(H) 30 - 160 mg/dL [facility] LDL 97 50 - 129 mg/dL [facility] Comment: LDL levels in terms of risk for coronary heart disease: <100 mg/dL: Optimal 100-129 mg/dL: Near or above optimal 130-159 mg/dL: Borderline high 160-189 mg/dL: High >190 mg/dL: Very High CARDIAC RISK RATIO 5.3(H) 3.4 - 5.0 [facility] Blood 04/15/2019 8:41 AM EDT 04/15/2019 8:46 AM EDT November Lisbet CASTILLO LAB BLOOD BKR ORDERABLES Fin al Result [address] [address] from Last 3 Months or Most Recently Relevant to Health Maintenance Insurance [facility] NSPG P[facility] NSPG PCP [place] [facility] NON NSPG PCP [place] [facility] NON NSPG PCP [facility] [address] [facility] NON NSPG PCP [place] [facility] NON NSPG PCP [place] [address] [place] [address] [place] [address] Care Teams Operator Helper Relationship Specialty Start Date End Date Christa Coronel DO [address] [place] [address] [email or web address] PCP - General Internal Medicine 06/30/25 Additional Source Comments The information contained in this document represents components of the legal health record. It is not the complete legal health record.[facility]
--- OUTSIDE RECORDS SUMMARY | 2025-07-24 15:33 | XMS_ITS | Encounter Summary ---
Author Organization [facility] Address [address] [employer] [facility] [address] [place] [phone] Phone Care Team Providers Care Foundry Laborer Coreroom Name Role Phone Niels Benedict DO Primary Care Provider [phone] Niels Benedict DO Primary Care Provider [phone] Encounter Details Date Type Department Care Team (Latest Contact Info) Description 03/18/2018 Transcribe Orders [facility] Main [address] [place] [address] Jessica Frausto PA-C [address] [place] [address] [email or web address] Encounter for general adult medical examination with abnormal findings (Primary Dx) Social History Tobacco Use Types [...] documented as of this encounter Results * (ABNORMAL) CBC and differential (03/18/2018 8:52 AM EDT) WBC 7.93 3.40 - 11.20 K/uL [facility] RBC 5.07 4.50 - 5.50 M/uL [facility] HGB 14.8 13.0 - 17.0 g/dL [facility] HCT 45.4 40.0 - 51.0 % [facility] PLT 247 130 - 400 K/uL [facility] MCV 89.5 79.0 - 98.0 fL [facility] MCH 29.2 27.0 - 34.8 pg [facility] MCHC 32.6 31.5 - 36.0 g/dL [facility] RDW 13.2 10.8 - 14.6 % [facility] MPV 10.7 9.4 - 12.4 fl [facility] NRBC 0.00 /100 WBCs [facility] ABSOLUTE NRBC 0.00 K/uL [facility] DIFF [employer] [facility] NEUTS 48.0 45.30 - 77.70 % [facility] LYMPHS 38.3 12.30 - 39.70 % [facility] MONOS 9.8 4.10 - 12.80 % [facility] EOS 2.5 0 - 7.2 % [facility] BASOS 0.6 0 - 2.80 % [facility] Granulocytes, immature (%) 0.8 0.0 - 0.9 % [facility] ABSOLUTE NEUTS 3.80 1.40 - 7.70 K/uL [facility] ABSOLUTE LYMPHS 3.04 0.60 - 3.20 K/uL [facility] ABSOLUTE MONOS 0.78(H) 0.11 - 0.59 K/uL [facility] ABSOLUTE EOS 0.20 0.01 - 0.50 K/uL [facility] ABSOLUTE BASOS 0.05 0.00 - 0.08 K/uL [facility] Granulocytes, immature 0.06(H) 0.00 - 0.05 K/uL [facility] Blood 03/18/2018 8:52 AM EDT 03/18/2018 8:55 AM EDT Jessica Frausto PA-C LAB BLOOD BKR ORDERABLES Fin al Result [facility] [address] [place] [address] * Comprehensive metabolic panel (03/18/2018 8:52 AM EDT) [facility] SODIUM 144 133 - 146 mmol/L [facility] POTASSIUM 4.4 3.3 - 5.1 mmol/L [facility] CHLORIDE 105 96 - 108 mmol/L [facility] CO2 25 21 - 35 mmol/L [facility] BUN 18 6 - 19 mg/dL [facility] CREATININE 0.90 0.5 - 1.5 mg/dL [facility] GLUCOSE 78 70 - 99 mg/dL [facility] ALBUMIN 4.0 3.9 - 4.8 g/dL [facility] TOTAL PROTEIN 7.4 6.5 - 8.0 g/dL [facility] CALCIUM 8.8 8.4 - 10.3 mg/dL [facility] ALKALINE PHOSPHATASE 88 39 - 117 U/L [facility] TOTAL BILIRUBIN 0.3 0.0 - 1.2 mg/dL [facility] AST 29 0 - 37 U/L [facility] ALT 27 0 - 40 U/L [facility] GLOBULIN 3.4 1 - 4.8 g/dL [facility] EGFR 114 >59 mL/min/1.7 3m2 [facility] Comment:If patient is black, multiply result by 1.159. Estimated glomerular filtration rate calculated using the CKD-EPI equation. ANION GAP 18 10 - 20 mmol/L [facility] Blood 03/18/2018 8:52 AM EDT 03/18/2018 8:55 AM EDT November Lisbet CASTILLO LAB BLOOD BKR ORDERABLES Fin al Result Performing Organization Address City/State/[facility] Co de Phone Number [address] [address] * Lipid panel (03/18/2018 8:52 AM EDT) HDL 43 mg/dL [facility] Comment: Interpretation: Risk Level Males Decreased >45 mg/dL Average 40-45 mg/dL Increased <40 mg/dL CHOLESTEROL 161 0 - 240 mg/dL [facility] TRIGLYCERIDES 102 30 - 160 mg/dL [facility] LDL 98 50 - 129 mg/dL [facility] Comment: LDL levels in terms of risk for coronary heart disease: <100 mg/dL: Optimal 100-129 mg/dL: Near or above optimal 130-159 mg/dL: Borderline high 160-189 mg/dL: High >190 mg/dL: Very High CARDIAC RISK RATIO 3.7 3.4 - 5.0 C [facility] Blood 03/18/2018 8:52 AM EDT 03/18/2018 8:55 AM EDT November Lisbet CASTILLO LAB BLOOD BKR ORDERABLES Fin al Result [facility] [address] [place] [address] documented in this encounter Visit Diagnoses Diagnosis Encounter for general adult medical examination with abnormal findings- Primary documented in this encounter Additional Health Concerns Infection Onset Date Last Indicated Resolved Time Resp-Risk 06/30/2025 06/30/2025 07/11/2025 7:06 PM EST documented as of this encounter Care Teams Foundry Laborer Coreroom Relationship Specialty Start Date End Date Niels Benedict DO PCP - General 05/19/17 06/29/25 Niels Benedict DO [address] [place] [address] PCP - General Internal Medicine 06/30/25 documented as of this encounter Additional Source Comments The information contained in this document represents components of the legal health record. It is not the complete legal health record.[facility]
--- OUTSIDE RECORDS SUMMARY | 2025-07-24 15:33 | XMS_ITS | Encounter Summary ---
Author Organization [facility] Address [address] [facility] [address] [place] [phone] Phone Care Team Providers Care District Wildlife Manager Name Role Phone Niels Benedict Primary Care Provider [phone] RosarioNiels alex Primary Care Provider [phone] Reason for Referral * MRI/CAT Scan - Closed Specialty Diagnoses / Procedures Referred By Carmen rahman Referred To Contact Radiology Diagnoses Hemoptysis Procedures CT Angio Chest Jessica Frausto PA-C Phone: tel: fax: mailto:[email or web address] Referral ID Status Reason Start Date Expiration Date Visits Re quested Visits Authorized [id number] Closed 04/15/2019 06/14/2019 1 1 Encounter Details Date Type Department Care Team (Latest Contact Info) Description 04/15/2019 Transcribe Orders Virtual Department [address] [place] [address] Jessica Frausto PA-C [address] [place] [address] [email or web address] Hemoptysis (Primary Dx) Social History Tobacco Use Types Packs/Day Years Used Date Smoking Tobacco: Former Smokeless Tobacco: Never Alcohol Use Standard Drinks/Week Comments Yes 0 (1 standard drink = 0.6 oz pur e alcohol) Sex and Gender Information Value Date Recorded Sex Assigned at Male 04/06/2019 5:55 AM EDT Legal Sex Male 9:09 PM EDT Gender Identity Male 04/06/2019 5:55 AM EDT Sexual Orientation Straight 04/06/2019 5: 55 AM EDT documented as of this encounter Plan of Treatment Not on file documented as of this encounter Results * CT ANGIO CHEST WITH CONTRAST (04/20/2019 2:12 PM EDT) Anatomical Region Laterality Modality Chest, Thoracic Vasculature Comp uted Tomography 04/20/2019 3:18 PM EDT Impressions 04/20/2019 4:25 PM EDT 1. No acute pulmonary emboli. 2. LEFT upper lobe apicoposterior segment airspace consolidation with the appearance of lobar pneumonia. There is no central cavitation and no obstructing mass. 3. No adenopathy in the chest. TOTAL CTDIvol: 45.70 mGy POS - [id number] Edited by: Hope Partida on 04/20/2019 3:32 PM Narrative 04/20/2019 4:25 PM EDT EXAM: CT ANGIO CHEST WITH CONTRAST HISTORY: Chest pain, fever and hemoptysis. Elevated d-dimer. TECHNIQUE: CT pulmonary angiogram performed. 50 mL Omnipaque [address] IV. Helical [address] CT images obtained with coronal, sagittal and 3-D postprocessing MIP images reconstructed. Radiation dose control: Exam performed with automated exposure control or iterative reconstruction to minimize radiation exposure. COMPARISON: Chest x-ray 04/08/2019. FINDINGS: There are no filling defects within the main, lobar, segmental or subsegmental pulmonary arteries. There is no CT evidence for acute pulmonary embolus. Normal size of the heart. Normal diameter and enhancement of the thoracic aorta. There is no hilar or mediastinal lymphadenopathy. The thoracic esophagus is normal. There is no pericardial effusion. There are no pleural effusions. There is mixed groundglass consolidation and dense airspace consolidation in the apicoposterior segment LEFT upper lobe, with the airspace consolidation measuring approximately 5.5 cm in maximal diameter. There are central air bronchograms. There is no central cavitation or intrapulmonary abscess. There is no obstructing central mass. No suspicious pulmonary nodules in the lungs. There is no pneumothorax. The imaged chest wall, axilla and lower neck are within normal limits. The included thyroid gland is normal. There are no suspicious lytic or blastic bone lesions or acute fractures. There are no acute findings in the imaged upper abdomen. Procedure Note Val Koo MD - 04/20/2019 EXAM: CT ANGIO CHEST WITH CONTRAST HISTORY: Chest pain, fever and hemoptysis. Elevated d-dimer. TECHNIQUE: CT pulmonary angiogram performed. 50 mL Omnipaque [address] images obtained with coronal, sagittal and 3-Dpostprocessing MIP images reconstructed. Radiation dose control: Exam performed with automated exposure control oriterative reconstruction to minimize radiation exposure. COMPARISON: Chest x-ray 04/08/2019. FINDINGS: There are no filling defects within the main, lobar, segmental orsubsegmental pulmonary arteries. There is no CT evidence for acutepulmonary embolus. Normal size of the heart. Normal diameter and enhancement of the thoracicaorta. There is no hilar or mediastinal lymphadenopathy. The thoracicesophagus is normal. There is no pericardial effusion. There are no pleural effusions. There is mixed groundglass consolidationand dense airspace consolidation in the apicoposterior segment LEFT upperlobe, with the airspace consolidation measuring approximately 5.5 cm inmaximal diameter. There are central air bronchograms. There is no centralcavitation or intrapulmonary abscess. There is no obstructing centralmass. No suspicious pulmonary nodules in the lungs. There is nopneumothorax. The imaged chest wall, axilla and lower neck are within normal limits. Theincluded thyroid gland is normal. There are no suspicious lytic or blastic bone lesions or acutefractures. There are no acute findings in the imaged upper abdomen. IMPRESSION: 1. No acute pulmonary emboli. 2. LEFT upper lobe apicoposterior segment airspace consolidation with theappearance of lobar pneumonia. There is no central cavitation and noobstructing mass. 3. No adenopathy in the chest. TOTAL CTDIvol: 45.70 mGy POS - [id number] Edited by: Hope Partida on 04/20/2019 3:32 PM November Lisbet CASTILLO IMG[address] CT CHEST Final Result documented in this encounter Visit Diagnoses Diagnosis Hemoptysis- Primary Hemoptysis documented in this encounter Additional Health Concerns Infection Onset Date Last Indicated Resolved Time Resp-Risk 06/30/2025 06/30/2025 07/11/2025 7:06 PM EST documented as of this encounter Care Teams District Wildlife Manager Relationship Specialty Start Date End Date Niels Benedict DO [email or web address] PCP - General 05/19/17 06/29/25 Niels Benedict DO [address] [place] [address] [email or web address] PCP - General Internal Medicine 06/30/25 documented as of this encounter Additional Source Comments The information contained in this document represents components of the legal health record. It is not the complete legal health record.[facility]
[2025-07-24 18:40] LABS: Alanine Aminotransferase 110 U/L (0-40); Albumin Level 5.1 g/dL (3.5-5.0); Alkaline Phosphatase 116 U/L (39-117); Anion Gap 14 (12-20); Aspartate Amino Transferase 64 U/L (5-37); Blood Urea Nitrogen 26 mg/dL (9-16); Calcium 10.4 mg/dL (8.4-10.2); Carbon Dioxide 26 mmol/L (22-29); Chloride 105 mmol/L (96-108); Estimated Glomerular Filt Rate > 60; Potassium 3.8 mmol/L (3.3-5.1); Sodium 141 mmol/L (135-145); Total Protein 8.7 g/dL (6.5-8.0)
== END 2025-07-24 12:20 | disposition home or self-care (01) ==
LOC: HO.MANLDS 12:19
PROVIDERS: Visit Provider Physician Assistant
DX: E11.9 Type 2 diabetes mellitus without complications (principal)
CPT/HCPCS: 36415; 80053